=== PATIENT | male | born 1945 | race Caucasian/White ===

== ENCOUNTER → 2016-12-18 | Outpatient (CLI) | payer MEDICARE, BC | LOC: KA.OC 13:05 | PROVIDERS: ATTEND Internal Medicine | DX: R30.0 Dysuria (principal); E11.9 Type 2 diabetes mellitus without complications; N39.0 Urinary tract infection, site not specified | CPT/HCPCS: 36415; 81001; 83036; 87086; 87088; 87186 ==

== ENCOUNTER 2017-08-17 09:49 | Inpatient (IN) | payer MEDICARE, BC ==
[2017-08-17 10:45] LABS: CHLORIDE,CL 106 mmol/L (98-115); SODIUM,NA 146 mmol/L (136-145)
[2017-08-17] MEDS ORDERED: Ibuprofen 600 MG Tab PO PRN (12:05)
[2017-08-17] MEDS ORDERED: Ondansetron 4 MG Tab.DIS PO PRN (12:05)
[2017-08-17] MEDS ORDERED: cefTRIAXone 1 GM in Sodium Chloride 0.9% 50 ML IV SCH (13:00)
[2017-08-17 14:37] VITALS: BP 115/74
[2017-08-17] MEDS ORDERED: Sodium Chloride 0.9% 1,000 ML IV SCH ×2 (15:00→16:00)
[2017-08-18] MEDS ORDERED: cefTRIAXone 1 GM Vial IVPUSH SCH (13:00)
== END 2017-08-17 16:25 | DRG 690 ==
LOC: KA.MS 09:49 → KA.OC 09:49 → UNDOADMIN 11:28 → KA.MS 11:28 → UNDODISIN 16:25
PROVIDERS: ADMIT Internal Medicine; ATTEND Internal Medicine
DX: N39.0 Urinary tract infection, site not specified (principal); R50.9 Fever, unspecified; N13.2 Hydronephrosis with renal and ureteral calculous obstruction; J44.9 Chronic obstructive pulmonary disease, unspecified; Z88.0 Allergy status to penicillin; Z79.82 Long term (current) use of aspirin; Z79.4 Long term (current) use of insulin; Z79.899 Other long term (current) drug therapy
CPT/HCPCS: 36415; 71020; 74176; 80048; 81001; 85025; 87040; 87086; 87088; 87186; J0696; J7030; J7050

== ENCOUNTER 2019-11-11 08:40 | Day surgery (SDC) | payer MEDICARE, BC ==
[2019-11-11] MEDS ORDERED: Propofol 200 MG/20 ML SDV IV ONE (08:41)
[2019-11-11] MEDS ORDERED: Midazolam 1 MG/ML 2 ML SDV IV ONE (08:41)
[2019-11-11] MEDS ORDERED: Lidocaine 2% 100 MG/5 ML Syringe IVPUSH ONE (08:41)
[2019-11-11] MEDS ORDERED: Sodium Chloride 0.9% 10 ML Syringe FLUSH PRN (08:45)
[2019-11-11] MEDS ORDERED: Sodium Chloride 0.9% 1,000 ML IV SCH (08:45)
--- NOTE | 2019-11-11 10:11 | PCM.PN ---
- General Info Date of Service: 11/11/19 - Review of Systems Systems Review Comment:: 74 y/o male with history of left sided abdominal pain and heart burn symptoms referred for EGD and Colonoscopy. He is medically stable to proceed. His recent H and P is reviewed and no significant changes are noted. Patient states that he has had a previous left colectomy for diverticular disease. I have discussed the proposed EGD and Colonoscopy with the patient. He agrees to proceed accepting risks. - Patient Data Vitals - Most Recent: Last Vital Signs Temp 96.8 F 11/11/19 09:05 Pulse 82 11/11/19 09:05 Resp 18 11/11/19 09:05 BP 136/95 H 11/11/19 09:05 Pulse Ox 95 11/11/19 09:05 Weight - Most Recent: 78.925 kg Med Orders - Current: Current Medications Sodium Chloride (Normal Saline) 1,000 mls @ 50 mls/hr IV ASDIRECTED MARC Last Admin: 11/11/19 09:05 Dose: 50 mls/hr Sodium Chloride (Saline Flush) 10 ml FLUSH Q8HR PRN PRN Reason: keep vein open Sepsis Event Note - Focused Exam Vital Signs: Vital Signs Temp Pulse Resp BP Pulse Ox 11/11/19 09:05 96.8 F 82 18 136/95 H 95 Date Exam was Performed: 11/11/19 Time Exam was Performed: 10:08 - Problem List Review Problem List Initiated/Reviewed/Updated: Yes - My Orders Last 24 Hours: My Active Orders 11/10/19 15:01 Resuscitation Status Routine 11/11/19 08:45 Blood Glucose Check, Bedside [RC] UPON Peripheral IV Care [RC] . DIRECTED Sodium Chloride 0.9% [Normal Saline] 1,000 ml IV ASDIRECTED Sodium Chloride 0.9% [Saline Flush] 10 ml FLUSH Q8HR PRN Peripheral IV Insertion Adult [OM.PC] Routine 11/11/19 09:00 Patient to Empty Bladder [RC] ASDIRECTED 11/11/19 09:45 Verify Patient Consent Obtain [RC] ASDIRECTED 11/11/19 Breakfast Nothing Per Oral Diet [DIET] - Assessment Assessment:: Heart Burn Left sided abdominal pain with history of prior colon resection - Plan Plan:: EGD and Colonoscopy
[2019-11-11] MEDS ORDERED: Albuterol 0.083% 2.5 MG/3 ML Neb Soln NEB SCH (10:12)
[2019-11-11] MEDS ORDERED: Midazolam 1 MG/ML 2 ML SDV ONE (10:19)
[2019-11-11] MEDS ORDERED: Propofol 200 MG/20 ML SDV ONE (10:19)
[2019-11-11] MEDS ORDERED: Lidocaine 2% 100 MG/5 ML Syringe ONE (10:20)
--- NOTE | 2019-11-11 11:08 | PCM.OPNOTE ---
- General Post-Op/Procedure Note Date of Surgery/Procedure: 11/11/19 Operative Procedure(s): EGD with Biopsy and Colonoscopy Findings: Small hiatal hernia Prior Sigmoid Resection with residual left colon diverticulosis but without inflammation Pre Op Diagnosis: Heart Burn. Abdominal Pain Post-Op Diagnosis: Haital Hernia. Left Colon Diverticulosis Anesthesia Technique: [facility] [place] Surgeon: Jorgito Ruiz Pathology: Biopsies of Gastric Antrum and GE Jct EBL in mLs: 3 Complications: None Condition: Good
[2019-11-11 12:02] VITALS: BP 144/82; PULSE 74
--- NOTE | 2019-11-11 13:41 | OR ---
DATE OF SURGERY: 11/11/2019 SURGEON: Jorgito Ruiz MD REFERRING PROVIDER: SILVIA Gallego PREOPERATIVE DIAGNOSIS: Symptoms of heartburn and abdominal pain. POSTOPERATIVE DIAGNOSIS: Hiatal hernia, left colon diverticulosis. OPERATION PERFORMED: Esophagogastroduodenoscopy with biopsy and colonoscopy. INDICATIONS FOR SURGERY: This 74-year-old male, who has been having some symptoms of heartburn and also has noted persistent left-sided abdominal pain. He has a history of a prior left colon resection for diverticular disease and upper and lower endoscopy is planned. FINDINGS: On upper endoscopy, the patient has a small hiatal hernia. The Z- line is distinct, approximately 41 cm from the incisors. The hiatal hernia does not appear to be acutely inflamed. The gastric and duodenal mucosa otherwise appeared normal. On colonoscopy, the patient has a well-healed end-to-end colonic anastomosis. There is no sign of visible inflammation, lesion, or stenosis at this anastomosis. There are some scattered diverticula in this area of the colon, but they do not appear to be acutely inflamed or otherwise complicated. The remainder of the colon appears normal. DESCRIPTION OF PROCEDURE: The patient was taken to the operating room. He was given intravenous sedation and with him in the left lateral decubitus position, a gastroscope was advanced through the mouth guard into the oral cavity. This was then carefully advanced under direct visualization down into the esophagus and then on to the stomach and duodenum, where examination to the 3rd portion was performed. After carefully examining the duodenum, the scope was withdrawn back into the stomach where full examination including retroflexed examination of the fundus was performed. Random biopsies of the antrum were taken to rule out H pylori. The GE junction was carefully examined and biopsies were taken here as well. The esophagus was examined as the scope was withdrawn. Attention was turned to colonoscopy where digital rectal exam showed no rectal masses. The Olympus colonoscope was inserted into the rectum. Retroflexed examination of the rectal canal was performed. The scope was carefully advanced into the sigmoid region where the anastomosis was readily identified. This was easily cannulated and the scope was then carefully advanced through the length of the colon until cecum was reached. Cecal acquisition was confirmed by noting the normal internal cecal anatomy including the appendiceal orifice and ileocecal valve. The light was also noted to transilluminate the abdominal wall in the right lower quadrant. After examining the cecum, the scope was slowly withdrawn sequentially re-examining the colonic segments until the entire colon and rectum had been examined. The scope was removed and the patient was taken from the operating room in satisfactory condition. ESTIMATED BLOOD LOSS: 3 mL. COMPLICATIONS: None. PROGNOSIS: Good. /[id number]/MODL
[2019-11-11] MEDS ORDERED: Bupivacaine 0.25% 10 ML SDV ONE (14:23)
== END 2019-11-11 12:55 | disposition home or self-care (01) ==
LOC: KA.SDS 08:40
PROVIDERS: ATTEND Surgery
DX: K44.9 Diaphragmatic hernia without obstruction or gangrene (principal); K57.30 Diverticulosis of large intestine without perforation or abscess without bleeding; J30.2 Other seasonal allergic rhinitis; I10 Essential (primary) hypertension; E11.9 Type 2 diabetes mellitus without complications; F41.9 Anxiety disorder, unspecified; E03.9 Hypothyroidism, unspecified; E78.00 Pure hypercholesterolemia, unspecified; K21.9 Gastro-esophageal reflux disease without esophagitis; G47.00 Insomnia, unspecified; Z90.49 Acquired absence of other specified parts of digestive tract; Z87.19 Personal history of other diseases of the digestive system; Z88.0 Allergy status to penicillin; Z79.899 Other long term (current) drug therapy; Z79.82 Long term (current) use of aspirin; Z79.4 Long term (current) use of insulin
CPT/HCPCS: 00813; 82962; J2001; J2250; J2704; J7030; J7613-GY

== ENCOUNTER 2019-12-18 09:56 | Emergency (ER) | payer MEDICARE, BC ==
--- NOTE | 2019-12-18 10:42 | EDM.PDOC ---
ED HPI GENERAL MEDICAL PROBLEM - General Stated Complaint: WEAK, ABNORMAL EKG Time Seen by Provider: 12/18/19 10:13 Source of Information: Reports: Patient, Provider, Significant Other History Limitations: Reports: No Limitations - History of Present Illness INITIAL COMMENTS - FREE TEXT/NARRATIVE: Patient presents from [facility] clinic with report of diaphoresis, malaise and right shoulder pain. About 0330 this morning he was very diaphoretic and short of breath. He didn't sleep well. He was planning to have surgery yesterday to repair a right rotator cuff but when in [place] at the [facility] he had some pain under left anterior ribcage and they did an EKG and sent him to [facility]. In the ER, yesterday he was told an enzyme was a little elevated and they scheduled him to see a unmanned equipment operator today. Today he was having too much shoulder and back pain to ride to [place] in a car so came to see Ana in clinic. Ana saw that he was still diaphoretic, did an EKG, sent him to ER and called me. Patient denies any history of stents or other heart problems. He denies pain or heaviness in chest; denies pain in neck, jaw, or left shoulder. He says the pain he had under the ribcage yesterday only lasted 10 minutes and hasn't returned. - Related Data Allergies Allergy/AdvReac Type Severity Reaction Status Date / Time Penicillins Allergy Hives Verified 12/18/19 10:17 Home Meds: Home Meds Albuterol [Ventolin HFA] 2 puff INH Q4H PRN 08/17/17 [History] Arformoterol [Brovana] 15 mcg NEB BIDRT 08/17/17 [History] Aspirin [Adult Low Dose Aspirin EC] 81 mg PO DAILY 08/17/17 [History] Budesonide [Pulmicort] 0.5 mg NEB BIDRT 08/17/17 [History] Diazepam [Valium] 5 mg PO BID PRN 08/17/17 [History] Flaxseed Oil [Flaxseed] 1,000 mg PO BID 08/17/17 [History] Fluticasone Propionate [Flonase Allergy Relief] 1 - 2 spray NASBOTH DAILY PRN [History] Insulin Glarg,Human.Rec.Analog [LantUS Solostar] 52 unit SUBCUT DAILY 08/17/17 [ History] Insulin Lispro [Humalog Kwikpen U-100] 18 unit SQ ASDIRECTED PRN 08/17/17 [ History] Levothyroxine Sodium [Synthroid] 137 mcg PO ACBREAKFAST 08/17/17 [History] Nystatin [Nystatin Crm] 1 gm TOP BID PRN 08/17/17 [History] Papaverine/Phentolamine/Water [Papavrn 30 mg-Phento 1 mg/ml] 0.5 ml IC ASDIRECTED PRN 08/17/17 [History] Pravastatin Sodium [Pravachol] 40 mg PO DAILY 08/17/17 [History] Propranolol HCl 10 mg PO BID 08/17/17 [History] Sildenafil Citrate 100 mg PO DAILY PRN 08/17/17 [History] Tiotropium [Spiriva HandiHaler] 18 mcg INH DAILY 08/17/17 [History] amLODIPine Besylate [Norvasc] 2.5 mg PO DAILY 08/17/17 [History] traMADol HCl [Tramadol HCl ER] 300 mg PO BEDTIME 08/17/17 [History] traMADol HCl [Tramadol HCl] 50 mg PO BID PRN 08/17/17 [History] traZODone HCl [Trazodone HCl] 100 mg PO BEDTIME 08/17/17 [History] Cranberry Fruit Concentrate [Cran-Max] 500 mg PO ASDIRECTED 11/10/19 [History] L.acidoph,Paracasei, B.lactis [Probiotic] 1 tab PO ASDIRECTED 11/10/19 [History] Meloxicam 15 mg PO DAILY 11/10/19 [History] QUEtiapine [SEROquel] 50 mg PO DAILY 11/10/19 [History] Ranitidine [Zantac] 150 mg PO BID 11/10/19 [History] Sulfamethoxazole/Trimethoprim [Bactrim 400-80 MG] 1 tab PO BEDTIME 11/10/19 [ History] Ciclopirox/Ure/Camph/Menth/Euc [Ciclopirox 8% Treatment Kit] 1 applic TOP ASDIRECTED PRN 12/18/19 [History] Cranberry Fruit Extract [Cranberry] 500 mg PO BEDTIME 12/18/19 [History] Past Medical History HEENT History: Reports: Cataract, Hard of Hearing, Impaired Vision Other HEENT History: sinus infections. seasonal allergies Cardiovascular History: Reports: High Cholesterol, Hypertension, SOB on Exertion Respiratory History: Reports: Asthma, COPD, Sleep Apnea, SOB Gastrointestinal History: Reports: Chronic Constipation, Diverticulosis, GERD, Hemorrhoids Other Gastrointestinal History: stomach inflamation. IBS Genitourinary History: Reports: Neurogenic Bladder, Prostate Disorder, Retention , Urinary, UTI, Recurrent, Other (See Below) Other Genitourinary History: self caths. erectile dysfunction Musculoskeletal History: Reports: Arthritis, Back Pain, Chronic, Fracture, Neck Pain, Chronic Neurological History: Reports: Concussion, Headaches, Chronic, Head Trauma Psychiatric History: Reports: Anxiety, Depression Endocrine/Metabolic History: Reports: Diabetes, Type II Other Endocrine/Metabolic History: MULTINODULAR THYROID WITH THYROIDECTOMY Hematologic History: Reports: Blood Transfusion(s) Oncologic (Cancer) History: Reports: Bladder, Prostate, Thyroid Dermatologic History: Reports: Psoriasis - Infectious Disease History Infectious Disease History: Reports: Chicken Pox, Influenza, Measles, Mumps - Past Surgical History HEENT Surgical History: Reports: Eye Surgery Other HEENT Surgeries/Procedures: removed piece of steel Cardiovascular Surgical History: Reports: None Respiratory Surgical History: Reports: None GI Surgical History: Reports: Colonoscopy, EGD Other GI Surgeries/Procedures: 24 INCHES OF COLON REMOVED DUE TO DIVERTICULITIS Male Surgical History: Reports: Cystectomy Endocrine Surgical History: Reports: Thyroidectomy Other Neurological Surgeries/Procedures: INJECTIONS IN BACK FOR ARTHRITIS AND IN SHOULDERS Musculoskeletal Surgical History: Reports: Shoulder Surgery Other Musculoskeletal Surgeries/Procedures:: LEFT ROTATER CUFF REPAIR. RIGHT ROTATER CUFF REPAIR NEEDED AND NOW REINJURED RIGHT SHOULDER Dermatological Surgical History: Reports: None Social & Family History - Tobacco Use Smoking Status *Q: Former Smoker Used Tobacco, but Quit: Yes Month/Year Tobacco Last Used: 1996 - Caffeine Use Caffeine Use: Reports: Coffee, Soda - Recreational Drug Use Recreational Drug Use: No ED ROS GENERAL - Review of Systems Review Of Systems: See Below Constitutional: Denies: Fever, Decreased Appetite HEENT: Denies: Ear Pain, Throat Pain, Vision Change Respiratory: Reports: Shortness of Breath. Denies: Wheezing, Cough Cardiovascular: Denies: Chest Pain, Lightheadedness, Syncope GI/Abdominal: Reports: Abdominal Pain (had some vague abdominal discomfort). Denies: Diarrhea, Vomiting Musculoskeletal: Reports: Shoulder Pain (right, due to current injury), Back Pain (chronic). Denies: Neck Pain, Arm Pain Skin: Reports: Diaphoresis. Denies: Cyanosis, Jaundice, Mottled, Pallor Neurological: Reports: Headache. Denies: Confusion, Dizziness, Seizure, Syncope , Trouble Speaking, Difficulty Walking Psychiatric: Denies: Agitation, Anxiety, Confusion ED EXAM, GENERAL - Physical Exam Exam: See Below Exam Limited By: No Limitations General Appearance: Alert, WD/WN, No Apparent Distress Eye Exam: Bilateral Eye: EOMI, Normal Inspection, PERRL Ears: Normal External Exam, Hearing Grossly Normal Nose: Normal Inspection, No Blood Throat/Mouth: Normal Inspection, Normal Lips, Normal Voice, No Airway Compromise Head: Atraumatic, Normocephalic Neck: Normal Inspection, Supple, Non-Tender, Full Range of Motion. No: Carotid Bruit Respiratory/Chest: No Respiratory Distress, Lungs Clear, Normal Breath Sounds, No Accessory Muscle Use Cardiovascular: Regular Rate, Rhythm, No Edema, No Murmur Peripheral Pulses: 2+: Carotid (L), Carotid (R), Radial (L), Radial (R) GI/Abdominal: Normal Bowel Sounds, Soft, Non-Tender, No Organomegaly, No Distention Back Exam: Normal Inspection, Full Range of Motion. No: CVA Tenderness (L), CVA Tenderness (R) Extremities: Normal Inspection, Normal Range of Motion, Non-Tender. No: Izabel' s Sign Neurological: Alert, Oriented, Normal Cognition, No Motor/Sensory Deficits Psychiatric: Normal Affect, Normal Mood Skin Exam: Warm, Dry, Intact, Normal Color, No Rash Course - Vital Signs Last Recorded V/S: Last Vital Signs Temp 97.9 F 12/18/19 10:15 Pulse 92 12/18/19 13:21 Resp 18 12/18/19 13:21 BP 116/68 12/18/19 13:21 Pulse Ox 95 12/18/19 13:21 - Orders/Labs/Meds Orders: Active Orders 24 hr Category Date Time Status EKG Documentation Completion [RC] ASDIRECTED Care 12/18/19 10:14 Ordered CULTURE URINE [RM] Stat Lab 12/18/19 11:47 Ordered Labs: Laboratory Tests 12/18/19 12/18/19 12/18/19 Range/Units 10:05 10:05 10:05 WBC 12.72 H (5.00-10.00) 10^3/uL RBC 4.87 (4.50-6.00) 10^6/uL Hgb 14.9 (13.0-17.0) g/dL Hct 44.8 (40.0-52.0) % MCV 92.0 (82.0-92.0) fL MCH 30.6 (27.0-31.0) pg MCHC 33.3 (32.0-36.0) g/dL RDW 13.4 (11.5-14.5) % Plt Count 278 (150-400) 10^3/uL MPV 8.9 (7.4-10.4) fL Immature Gran % (Auto) 0.2 (0.0-5.0) % Neut % (Auto) 85.7 H (50.0-70.0) % Lymph % (Auto) 6.8 L (20.0-40.0) % Banks % (Auto) 6.9 (2.0-8.0) % Eos % (Auto) 0.2 L (1.0-3.0) % Baso % (Auto) 0.2 (0.0-1.0) % Immature Gran # (Auto) 0.03 (0.00-0.50) 10^3/uL Neut # (Auto) 10.91 H (2.50-7.00) 10^3/uL Lymph # (Auto) 0.86 L (1.00-4.00) 10^3/uL Banks # (Auto) 0.88 H (0.10-0.80) 10^3/uL Eos # (Auto) 0.02 L (0.10-0.30) 10^3/uL Baso # (Auto) 0.02 (0.00-0.10) 10^3/uL D-Dimer, Quantitative 1450 H (<400) ng/mL Sodium 140 (136-145) mmol/L Potassium 4.4 (3.3-5.3) mmol/L Chloride 97 L (98-115) mmol/L Carbon Dioxide 24.9 (21.0-32.0) mmol/L Anion Gap 22.5 H (5-15) mmol/L BUN 24 (6-25) mg/dL Creatinine 1.06 (0.51-1.17) mg/dL Est Cr Clr Drug Dosing 62.17 mL/min Estimated GFR (MDRD) > 60 mL/min Glucose 132 H (75 - 99) mg/dL Calcium 9.0 (8.7-10.3) mg/dL Total Bilirubin 0.6 (0.2-1.0) mg/dL AST 36 (15-37) U/L ALT 30 (12-78) U/L Alkaline Phosphatase 40 L (46-116) IU/L Troponin I 0.06 (0.00-0.070) ng/mL Total Protein 7.4 (6.4-8.2) g/dL Albumin 3.66 (3.00-4.80) g/dL Specimen Type Urine Color (YELLOW) Urine Appearance (CLEAR) Urine pH (5.0-9.0) Ur Specific [place] (1.005-1.030) Urine Protein (NEGATIVE) mg/dL Urine Glucose (UA) (NEGATIVE) mg/dL Urine Ketones (NEGATIVE) mg/dL Urine Occult Blood (NEGATIVE) Urine Nitrite (NEGATIVE) Urine Bilirubin (NEGATIVE) Urine Urobilinogen (0.2-1.0) E.U./dL Ur Leukocyte Esterase (NEGATIVE) Urine RBC (0-5) /HPF Urine WBC (0-5) /HPF Ur Epithelial Cells /LPF Urine Bacteria (NONE TO FEW) /HPF 12/18/19 Range/Units 11:20 WBC (5.00-10.00) 10^3/uL RBC (4.50-6.00) 10^6/uL Hgb (13.0-17.0) g/dL Hct (40.0-52.0) % MCV (82.0-92.0) fL MCH (27.0-31.0) pg MCHC (32.0-36.0) g/dL RDW (11.5-14.5) % Plt Count (150-400) 10^3/uL MPV (7.4-10.4) fL Immature Gran % (Auto) (0.0-5.0) % Neut % (Auto) (50.0-70.0) % Lymph % (Auto) (20.0-40.0) % Banks % (Auto) (2.0-8.0) % Eos % (Auto) (1.0-3.0) % Baso % (Auto) (0.0-1.0) % Immature Gran # (Auto) (0.00-0.50) 10^3/uL Neut # (Auto) (2.50-7.00) 10^3/uL Lymph # (Auto) (1.00-4.00) 10^3/uL Banks # (Auto) (0.10-0.80) 10^3/uL Eos # (Auto) (0.10-0.30) 10^3/uL Baso # (Auto) (0.00-0.10) 10^3/uL D-Dimer, Quantitative (<400) ng/mL Sodium (136-145) mmol/L Potassium (3.3-5.3) mmol/L Chloride (98-115) mmol/L Carbon Dioxide (21.0-32.0) mmol/L Anion Gap (5-15) mmol/L BUN (6-25) mg/dL Creatinine (0.51-1.17) mg/dL Est Cr Clr Drug Dosing mL/min Estimated GFR (MDRD) mL/min Glucose (75 - 99) mg/dL Calcium (8.7-10.3) mg/dL Total Bilirubin (0.2-1.0) mg/dL AST (15-37) U/L ALT (12-78) U/L Alkaline Phosphatase (46-116) IU/L Troponin I (0.00-0.070) ng/mL Total Protein (6.4-8.2) g/dL Albumin (3.00-4.80) g/dL Specimen Type Urinqcath Urine Color Dark yellow H (YELLOW) Urine Appearance Turbid H (CLEAR) Urine pH 5.5 (5.0-9.0) Ur Specific [place] >= 1.030 (1.005-1.030) Urine Protein Trace H (NEGATIVE) mg/dL Urine Glucose (UA) Negative (NEGATIVE) mg/dL Urine Ketones 15 H (NEGATIVE) mg/dL Urine Occult Blood Negative (NEGATIVE) Urine Nitrite Negative (NEGATIVE) Urine Bilirubin Negative (NEGATIVE) Urine Urobilinogen 0.2 (0.2-1.0) E.U./dL Ur Leukocyte Esterase Negative (NEGATIVE) Urine RBC 0-5 (0-5) /HPF Urine WBC 0-5 (0-5) /HPF Ur Epithelial Cells Few /LPF Urine Bacteria Moderate H (NONE TO FEW) /HPF Meds: Medications Discontinued Medications Generic Name Dose Route Start Last Admin Trade Name [place] PRN Reason Stop Dose Admin Ceftriaxone Sodium 1 gm 12/18/19 13:10 12/18/19 13:13 Rocephin IVPUSH 12/18/19 13:11 1 gm ONETIME ONE Administration Sodium Chloride 100 mls @ 200 mls/min 12/18/19 13:22 12/18/19 13:25 Normal Saline IV 12/18/19 13:23 200 mls/min ONETIME ONE Administration Iopamidol 100 ml 12/18/19 13:22 12/18/19 13:25 Isovue-370 (76%) IV 12/18/19 13:23 100 ml ONETIME ONE Administration - Re-Assessments/Exams Free Text/Narrative Re-Assessment/Exam: 12/18/19 10:50 We called [facility] to get there record from yesterday and they are sending it. 12/18/19 11:02 Yesterday's ER report found no heart problems and felt GERD was the problem. They scheduled him for cardiology consult today. Trop was <0.03 yesterday. 12/18/19 11:13 Patient does self-cath multiple times a day for urination. He was on Bactrim qhs prophylaxis until he developed a UTI a few weeks ago. Then he took Keflex and finished that 3 days ago. He denies any dysuria or problems now. With the WBC a little elevated today and chest clear, we will check urine. Trop is 0.06, WBC 12.72, ANC 10.91. Yesterday WBC was 10.8 in [place]. 12/18/19 11:51 D-dimer is 1450 now (normal less than 400). I noticed that [place] had checked it yesterday at 1.44 with normal range <0.[address] so we will do CT now. Patient is still short of breath but has no pain or swelling in legs. Calves are soft, symmetric and no swelling to exam. Homans negative. He is comfortable and his shoulder isn't hurting much at all now. 12/18/19 12:18 UA shows moderate bacteria but leukocyte esterase and nitrite are negative. With the recent antibiotic, his frequent catheter use and lack of current symptoms will wait on culture. 12/18/19 13:[address] results showing some left lingular and basilar infiltrate consolidation. He also saw age indeterminate evidence of small emboli in right lung that he thought appears chronic but wasn't there on a comparison CT from 2014 so isn't sure what to think of it. 12/18/19 13:34 Gave Rocephin IVP. Discussed case with PCP Ana Hernandez and will treat with Eliquis for the lung emboli and she will repeat CT after pneumonia clears. Discussed findings and treatment plan with patient and his . Departure - Departure Time of Disposition: 13:37 Disposition: Home, Self-Care 01 Clinical Impression: Bacteriuria, asymptomatic, Chronic right shoulder pain, Pulmonary embolus, right CAP (community acquired pneumonia) Qualifiers: Laterality: left Lung location: unspecified part of lung Qualified Code(s): J18.9 - Pneumonia, unspecified organism Rotator cuff tear, right Qualifiers: Rotator cuff tear extent: unspecified tear extent Encounter type: subsequent encounter Referrals: Ana Hernandez PA-C [Primary Care Provider] - Additional Instructions: 1. Take the Omnicef and Zithromax antibiotics as directed. You can start the Zithromax right away but wait to start the Omnicef tomorrow morning. 2. Take the Eliquis as directed. 3. Follow up with Ana Hernandez in clinic early to middle next week. 4. Recheck sooner if any worsening. Sepsis Event Note - Evaluation Sepsis Screening Result: No Definite Risk - Focused Exam Vital Signs: Vital Signs Temp Pulse Resp BP Pulse Ox 12/18/19 13:21 92 18 116/68 95 12/18/19 11:01 99 18 121/62 95 12/18/19 10:15 97.9 F 109 H 20 133/79 93 L Date Exam was Performed: 12/18/19 Time Exam was Performed: 13:41 - My Orders Last 24 Hours: My Active Orders 12/18/19 10:14 EKG Documentation Completion [RC] ASDIRECTED 12/18/19 11:47 CULTURE URINE [RM] Stat - Assessment/Plan Last 24 Hours: My Active Orders 12/18/19 10:14 EKG Documentation Completion [RC] ASDIRECTED 12/18/19 11:47 CULTURE URINE [RM] Stat
[2019-12-18 10:55] LABS: ANION GAP 22.5 mmol/L (5-15); CHLORIDE,CL 97 mmol/L (98-115); SODIUM,NA 140 mmol/L (136-145)
--- NOTE | 2019-12-18 11:12 | CR ---
[id number] RAD/RAD Chest PA or AP 1V EXAM: FRONTAL CHEST INDICATION: DYSPNEA. COMPARISON: December 17, 2019. DISCUSSION: Chronic left base scarring. No acute infiltrates. Underlying chronic obstructive pulmonary disease. Chronic right rib and clavicle fractures. Normal heart size. IMPRESSION: 1. Chronic obstructive pulmonary disease. No acute findings. Zac Fried MD 12/18/19 1111 Thank you for allowing us to participate in the care of your patient.
[2019-12-18] MEDS: cefTRIAXone 1 GM Vial IVPUSH ONE (13:13)
--- NOTE | 2019-12-18 13:13 | CT ---
[id number] CT/CTA Chest EXAM: CT ANGIOGRAM CHEST INDICATION: Dyspnea with elevated d-dimer. COMPARISON: May 28, 2014. DISCUSSION: Beginning just after the right main pulmonary artery branch and extending into the right middle and lower lobes there is a small volume of peripheral partially occlusive thrombus extending into segmental branches in the right middle and lower lobes. These areas of thrombus are of uncertain age, but the appearance would be more typical of chronic emboli. Correlate with the clinical history of previous pulmonary emboli would be useful. No clot is seen in this area scanned on May 28, 2014. No emboli are seen in the left lung. There is mild to moderate apical predominant emphysema and there is bronchitis with mild diffuse bronchial wall thickening. Mild tubular bronchiectasis in the lung bases. Mild scarring in both lung bases is unchanged. Interval development of patchy groundglass opacities and mild consolidation in the left upper and lower lobes most consistent with infection. No right-sided infiltrates. No adenopathy. No pleural or pericardial effusion. Normal heart size. Coronary calcifications. Small sliding type hiatus hernia. The imaged upper abdomen is otherwise unremarkable. Chronic healed right rib and clavicle fractures. IMPRESSION: 1. Mild infiltrates in the left upper and lower lobes consistent with pneumonia. 2. Small volume age indeterminate peripheral partially occlusive pulmonary emboli in the right middle and lower lobes. Zac Fried MD 12/18/19 0637 Thank you for allowing us to participate in the care of your patient.
[2019-12-18 13:23] VITALS: BP 116/68; PULSE 92
[2019-12-18] MEDS: Iopamidol 755 Mg/ML 100 ML Bottle IV ONE (13:25)
[2019-12-18] MEDS: Sodium Chloride 0.9% 100 ML IV ONE (13:25)
== END 2019-12-18 14:00 | disposition home or self-care (01) ==
LOC: KA.ED 09:56
DX: I26.99 Other pulmonary embolism without acute cor pulmonale (principal); J18.9 Pneumonia, unspecified organism; M75.101 Unspecified rotator cuff tear or rupture of right shoulder, not specified as traumatic; R82.71 Bacteriuria; Z88.0 Allergy status to penicillin; Z79.82 Long term (current) use of aspirin; Z79.899 Other long term (current) drug therapy; I10 Essential (primary) hypertension; E78.00 Pure hypercholesterolemia, unspecified; J44.9 Chronic obstructive pulmonary disease, unspecified; F41.9 Anxiety disorder, unspecified; F32.9 Major depressive disorder, single episode, unspecified; E11.9 Type 2 diabetes mellitus without complications; Z87.891 Personal history of nicotine dependence
CPT/HCPCS: 36415; 71045; 71260; 80053; 81001; 84484; 85025; 85379; 87086; 93005; 96374; 99284; 99285-25; J0696; J7050; Q9967

== ENCOUNTER 2020-03-23 14:25 | Emergency (ER) | payer MEDICARE, BC ==
[2020-03-23] MEDS ORDERED: Sodium Chloride 0.9% 10 ML Syringe FLUSH PRN (14:43)
[2020-03-23] MEDS: Aspirin 81 MG Tab.Chew PO ONE (14:46)
--- NOTE | 2020-03-23 15:13 | EDM.PDOC ---
ED HPI GENERAL MEDICAL PROBLEM - General Stated Complaint: NOT FEELING WELL-"LUNGS BURNING" Time Seen by Provider: 03/23/20 14:54 Source of Information: Reports: Patient History Limitations: Reports: No Limitations - History of Present Illness INITIAL COMMENTS - FREE TEXT/NARRATIVE: Patient presents with cough, "burning" in his lungs, and dyspnea. This started 3 days ago and involved a lot of coughing. All of the symptoms improved over the past 24-48 hours. The worst was Sunday and Sunday, especially the tightness in his chest and burning in his lungs that accompanied coughing on Sunday. Today he feels much better; the only thing new today is that at 0700 ( 10 hrs ago) he felt like he had a "melissa horse" in his left anterior neck. That lasted awhile but has mostly resolved and now just feels like a sore muscle. The reason he came to ER today is that his home health nurse told him to he says. He had CABGx4 three weeks ago. He is on Eliquis. - Related Data Allergies Allergy/AdvReac Type Severity Reaction Status Date / Time Penicillins Allergy Hives Verified 03/23/20 15:02 Home Meds: Home Meds Arformoterol [Brovana] 15 mcg NEB BIDRT 08/17/17 [History] Budesonide [Pulmicort] 0.5 mg NEB BIDRT 08/17/17 [History] Diazepam [Valium] 5 mg PO BID PRN 08/17/17 [History] Flaxseed Oil [Flaxseed] 1,000 mg PO BID 08/17/17 [History] Insulin Glarg,Human.Rec.Analog [LantUS Solostar] 60 unit SUBCUT DAILY 08/17/17 [ History] Insulin Lispro [Humalog Kwikpen U-100] 18 unit SQ ASDIRECTED PRN 08/17/17 [ History] Levothyroxine Sodium [Synthroid] 137 mcg PO ACBREAKFAST 08/17/17 [History] Nystatin [Nystatin Crm] 1 gm TOP BID PRN 08/17/17 [History] Papaverine/Phentolamine/Water [Papavrn 30 mg-Phento 1 mg/ml] 0.5 ml IC ASDIRECTED PRN 08/17/17 [History] Pravastatin Sodium [Pravachol] 40 mg PO BEDTIME 10/27/17 [History] Tiotropium [Spiriva HandiHaler] 18 mcg INH DAILY 08/17/17 [History] traMADol HCl [Tramadol HCl ER] 300 mg PO BEDTIME 08/17/17 [History] traZODone HCl [Trazodone HCl] 100 mg PO BEDTIME 08/17/17 [History] Cranberry Fruit Concentrate [Cran-Max] 1,000 mg PO DAILY 11/10/19 [History] L.acidoph,Paracasei, B.lactis [Probiotic] 1 tab PO ASDIRECTED 11/10/19 [History] QUEtiapine [SEROquel] 50 mg PO DAILY 11/10/19 [History] Cranberry Fruit Extract [Cranberry] 500 mg PO BEDTIME 12/18/19 [History] Acetaminophen [Pain Reliever] 500 mg PO Q4H PRN 03/23/20 [History] Apixaban [Eliquis] 5 mg PO BID 03/23/20 [History] Cholecalciferol (Vitamin D3) [Vitamin D3] 2,000 unit PO DAILY 03/23/20 [History] Docusate Sodium 250 mg PO DAILY 03/23/20 [History] Hydrocodone/Acetaminophen [Hydrocodone-Acetamin 10-325 mg] 1 each PO Q4H PRN 12/11 [History] Magnesium Oxide 500 mg PO BID 03/23/20 [History] Metoprolol Tartrate 25 mg PO BID 03/23/20 [History] Oxymetazoline [Nasal Decongestant] 15 ml CARITO BEDTIME 03/23/20 [History] Sennosides/Docusate Sodium [Senna Plus 8.6-50 mg Softgel] 3 tab PO DAILY PRN 12/11 [History] Sildenafil [Viagra] 100 mg PO BEDTIME PRN 03/23/20 [History] Sulfamethoxazole/Trimethoprim [Bactrim Ds Tablet] 1 each PO BID 03/23/20 [ History] Triamcinolone Acetonide [Triamcinolone Acetonide 0.1% Crm] 1 applic TOP BID 12/11 [History] Past Medical History HEENT History: Reports: Cataract, Hard of Hearing, Impaired Vision Other HEENT History: sinus infections. seasonal allergies Cardiovascular History: Reports: High Cholesterol, Hypertension, SOB on Exertion Respiratory History: Reports: Asthma, COPD, Sleep Apnea, SOB Gastrointestinal History: Reports: Chronic Constipation, Diverticulosis, GERD, Hemorrhoids Other Gastrointestinal History: stomach inflamation. IBS Genitourinary History: Reports: Neurogenic Bladder, Prostate Disorder, Retention , Urinary, UTI, Recurrent, Other (See Below) Other Genitourinary History: self caths. erectile dysfunction Musculoskeletal History: Reports: Arthritis, Back Pain, Chronic, Fracture, Neck Pain, Chronic Neurological History: Reports: Concussion, Headaches, Chronic, Head Trauma Psychiatric History: Reports: Anxiety, Depression Endocrine/Metabolic History: Reports: Diabetes, Type II Other Endocrine/Metabolic History: MULTINODULAR THYROID WITH THYROIDECTOMY Hematologic History: Reports: Blood Transfusion(s) Oncologic (Cancer) History: Reports: Bladder, Prostate, Thyroid Dermatologic History: Reports: Psoriasis - Infectious Disease History Infectious Disease History: Reports: Chicken Pox, Influenza, Measles, Mumps - Past Surgical History HEENT Surgical History: Reports: Eye Surgery Other HEENT Surgeries/Procedures: removed piece of steel Cardiovascular Surgical History: Reports: None Respiratory Surgical History: Reports: None GI Surgical History: Reports: Colonoscopy, EGD Other GI Surgeries/Procedures: 24 INCHES OF COLON REMOVED DUE TO DIVERTICULITIS Male Surgical History: Reports: Cystectomy Endocrine Surgical History: Reports: Thyroidectomy Other Neurological Surgeries/Procedures: INJECTIONS IN BACK FOR ARTHRITIS AND IN SHOULDERS Musculoskeletal Surgical History: Reports: Shoulder Surgery Other Musculoskeletal Surgeries/Procedures:: LEFT ROTATER CUFF REPAIR. RIGHT ROTATER CUFF REPAIR NEEDED AND NOW REINJURED RIGHT SHOULDER Dermatological Surgical History: Reports: None Social & Family History - Caffeine Use Caffeine Use: Reports: Coffee, Soda ED ROS GENERAL - Review of Systems Review Of Systems: See Below Constitutional: Denies: Fever, Chills, Malaise, Weakness HEENT: Denies: Ear Pain, Throat Pain, Vision Change Respiratory: Reports: Shortness of Breath, Cough Cardiovascular: Reports: Chest Pain (only with coughing as in HPI). Denies: Lightheadedness, Syncope GI/Abdominal: Denies: Abdominal Pain, Vomiting : Denies: Dysuria, Flank Pain Musculoskeletal: Reports: Neck Pain (see HPI). Denies: Shoulder Pain, Arm Pain , Back Pain, Hand Pain, Leg Pain Skin: Denies: Cyanosis, Jaundice, Mottled, Pallor, Diaphoresis Neurological: Denies: Confusion, Dizziness, Headache, Seizure, Syncope, Trouble Speaking Psychiatric: Denies: Agitation, Anxiety, Confusion ED EXAM, GENERAL - Physical Exam Exam: See Below Exam Limited By: No Limitations General Appearance: Alert, WD/WN, No Apparent Distress Eye Exam: Bilateral Eye: EOMI, Normal Inspection, PERRL Ears: Normal External Exam, Hearing Grossly Normal Nose: Normal Inspection, No Blood Throat/Mouth: Normal Inspection, Normal Lips, Normal Voice, No Airway Compromise Head: Atraumatic, Normocephalic Neck: Normal Inspection, Supple, Non-Tender, Full Range of Motion. No: Carotid Bruit, Limited Range of Motion Respiratory/Chest: No Respiratory Distress, Lungs Clear, Normal Breath Sounds, No Accessory Muscle Use, Chest Non-Tender Cardiovascular: Regular Rate, Rhythm, No Murmur Peripheral Pulses: 2+: Carotid (L), Carotid (R), Radial (L), Radial (R) GI/Abdominal: Normal Bowel Sounds, Soft, Non-Tender, No Organomegaly, No Distention, No Abnormal Bruit Back Exam: Normal Inspection, Full Range of Motion. No: CVA Tenderness (L), CVA Tenderness (R) Extremities: Normal Inspection, Non-Tender Neurological: Alert, Oriented, Normal Cognition, No Motor/Sensory Deficits Psychiatric: Normal Affect, Normal Mood Skin Exam: Warm, Dry, Intact, Normal Color, No Rash Course - Vital Signs Last Recorded V/S: Last Vital Signs Temp 96.7 F L 03/23/20 14:57 Pulse 69 03/23/20 15:41 Resp 13 03/23/20 15:41 BP 118/76 03/23/20 15:41 Pulse Ox 93 L 03/23/20 15:41 - Orders/Labs/Meds Orders: Active Orders 24 hr Category Date Time Status EKG Documentation Completion [RC] ASDIRECTED Care 03/23/20 14:43 Active Peripheral IV Care [RC] . DIRECTED Care 03/23/20 14:43 Active Sodium Chloride 0.9% [Saline Flush] Med 03/23/20 14:43 Active 10 ml FLUSH Q8HR PRN Peripheral IV Insertion Adult [OM.PC] Routine Oth 03/23/20 14:43 Ordered EKG 12 Lead [EK] Stat Ther 03/23/20 14:42 Ordered Medication Orders Sodium Chloride (Saline Flush) 10 ml FLUSH Q8HR PRN PRN Reason: keep vein open Labs: Laboratory Tests 03/23/20 03/23/20 Range/Units 14:42 14:42 WBC 7.19 (5.00-10.00) 10^3/uL RBC 4.23 L (4.50-6.00) 10^6/uL Hgb 12.3 L (13.0-17.0) g/dL Hct 38.9 L (40.0-52.0) % MCV 92.0 (82.0-92.0) fL MCH 29.1 (27.0-31.0) pg MCHC 31.6 L (32.0-36.0) g/dL RDW 13.9 (11.5-14.5) % Plt Count 543 H D (150-400) 10^3/uL MPV 7.9 (7.4-10.4) fL Add Manual Diff Yes Neutrophils % (Manual) 61 (50-70) % Band Neutrophils % 4 (4-12) % Lymphocytes % (Manual) 24 (20-40) % Monocytes % (Manual) 4 (2-8) % Eosinophils % (Manual) 7 H (1-3) % Absolute Neutrophils 4.39 Band Neutrophils # 0.29 Lymphocytes # (Manual) 1.73 Monocytes # (Manual) 0.29 Eosinophils # (Manual) 0.50 Sodium 139 (136-145) mmol/L Potassium 4.1 (3.3-5.3) mmol/L Chloride 100 (98-115) mmol/L Carbon Dioxide 27.4 (21.0-32.0) mmol/L Anion Gap 15.7 H (5-15) mmol/L BUN 13 (6-25) mg/dL Creatinine 1.32 H (0.51-1.17) mg/dL Est Cr Clr Drug Dosing 49.93 mL/min Estimated GFR (MDRD) 53 mL/min Glucose 78 (75 - 99) mg/dL Calcium 9.3 (8.7-10.3) mg/dL Troponin I 0.10 H* (0.00-0.070) ng/mL Meds: Medications Generic Name Dose Route Start Last Admin Trade Name Freq PRN Reason Stop Dose Admin Sodium Chloride 10 ml 03/23/20 14:43 Saline Flush FLUSH Q8HR PRN keep vein open Discontinued Medications Generic Name Dose Route Start Last Admin Trade Name [place] PRN Reason Stop Dose Admin Aspirin 324 mg 03/23/20 14:42 03/23/20 14:46 Aspirin PO 03/23/20 14:43 324 mg ONETIME ONE Administration - Re-Assessments/Exams Free Text/Narrative Re-Assessment/Exam: 03/23/20 16:03 CXR shows small effusions and possible infiltrate. EKG shows Q-waves in anterior leads but no ST changes. Troponin is 0.10 and we don't have recent previous to compare with except from November at 0.06. I discussed case with Dr. Go, [facility] physician underwriter, who checked records and doesn't have any troponins from his time in [place] either. Dr. Go doesn't know that pt absolutely needs to transfer there but mentioned some possible etiologies they would explore there in addition to trending troponins. We decided that, based primarily on the elevated troponin, we would transfer patient there. I discussed details with the patient and at first he was refusing to go to [place]. He talked with his and SILVIA Alejo (his PCP) came and talked with him too and he decided to go. I discussed case with Dr. Godoy, hospitalist, who accepted for transfer. They will call with room and details. 03/23/20 16:16 Patient stable at discharge. Departure - Departure Time of Disposition: 16:14 Disposition: DC/Tfer to Acute Hospital 02 Condition: Good Clinical Impression: Elevated troponin, Chest tightness - Discharge Information Referrals: Ana Hernandez PA-C [Primary Care Provider] - Forms: ED Department Discharge, Interfacility Transfer EMTALA Sepsis Event Note - Focused Exam Vital Signs: Vital Signs Temp Pulse Resp BP Pulse Ox 03/23/20 15:41 69 13 118/76 93 L 03/23/20 14:57 96.7 F L 65 15 143/79 H 95 Date Exam was Performed: 03/23/20 Time Exam was Performed: 16:18 - My Orders Last 24 Hours: My Active Orders 03/23/20 14:42 EKG 12 Lead [EK] Stat 03/23/20 14:43 EKG Documentation Completion [RC] ASDIRECTED Peripheral IV Care [RC] . DIRECTED Sodium Chloride 0.9% [Saline Flush] 10 ml FLUSH Q8HR PRN Peripheral IV Insertion Adult [OM.PC] Routine - Assessment/Plan Last 24 Hours: My Active Orders 03/23/20 14:42 EKG 12 Lead [EK] Stat 03/23/20 14:43 EKG Documentation Completion [RC] ASDIRECTED Peripheral IV Care [RC] . DIRECTED Sodium Chloride 0.9% [Saline Flush] 10 ml FLUSH Q8HR PRN Peripheral IV Insertion Adult [OM.PC] Routine
--- NOTE | 2020-03-23 15:14 | CR ---
[id number] RAD/RAD Chest PA And Lateral EXAM: FRONTAL AND LATERAL CHEST INDICATION: DIFFICULTY BREATHING. COMPARISON: December 18, 2019. DISCUSSION: Left base opacities likely combination of atelectasis and chronic scarring. CT may be useful to further evaluate for infiltrates or other pathology. Interval development of a small left effusion. Hyperinflation compatible with chronic obstructive pulmonary disease. Sternotomy. Chronic unchanged right rib fractures. IMPRESSION: 1. Development of a small left pleural effusion. 2. Mild left base atelectasis and scarring with no definite infiltrates. Zac Fried MD 03/23/20 [id number] Thank you for allowing us to participate in the care of your patient.
[2020-03-23 15:20] LABS: ANION GAP 15.7 mmol/L (5-15)
[2020-03-23 15:44] VITALS: BP 118/76; PULSE 69
== END 2020-03-23 16:35 ==
LOC: KA.ED 14:25
DX: R07.89 Other chest pain (principal); R79.89 Other specified abnormal findings of blood chemistry; I10 Essential (primary) hypertension; E78.00 Pure hypercholesterolemia, unspecified; J44.9 Chronic obstructive pulmonary disease, unspecified; M19.90 Unspecified osteoarthritis, unspecified site; F41.9 Anxiety disorder, unspecified; F32.9 Major depressive disorder, single episode, unspecified; E11.9 Type 2 diabetes mellitus without complications; Z88.0 Allergy status to penicillin; Z79.4 Long term (current) use of insulin; Z79.01 Long term (current) use of anticoagulants; Z79.899 Other long term (current) drug therapy
CPT/HCPCS: 36415; 71046; 80048; 84484; 85025; 93005; 99284; 99285-25; A9270-GY

== ENCOUNTER 2020-03-25 06:30 | Inpatient (IN) | payer MEDICARE, BC ==
[2020-03-25] MEDS ORDERED: Sodium Chloride 0.9% 1,000 ML IV ONE ×2 (06:43→08:39)
[2020-03-25] MEDS ORDERED: Ondansetron 4 MG/2 ML SDV IVPUSH ONE ×2 (06:43→09:09)
[2020-03-25] MEDS: Sodium Chloride 0.9% 10 ML Syringe FLUSH PRN ×2 (07:01→09:16)
--- NOTE | 2020-03-25 07:26 | EDM.PDOC ---
ED HPI GENERAL MEDICAL PROBLEM - General Chief Complaint: General Stated Complaint: Nausea, weakness Time Seen by Provider: 03/25/20 07:12 Source of Information: Reports: Patient History Limitations: Reports: No Limitations - History of Present Illness INITIAL COMMENTS - FREE TEXT/NARRATIVE: Patient presents this morning with nausea and "dry heaves" that lasted all night. No vomiting. Patient had told me he didn't pass any stool yesterday and hasn't passed any gas today. His tells me he definitely had 3 episodes of diarrhea yesterday and had soft stools each night for the previous three nights. He returned from [facility] yesterday after a workup for elevated troponin following recent CABG. He has been taking Tylenol for fever control however he hasn't checked his temp. He uses oxygen during the night at home routinely. Treatments UNIT LEADER: Reports: Acetaminophen Middle Abdomen Pain Score (Numeric/FACES): 5 - Related Data Allergies Allergy/AdvReac Type Severity Reaction Status Date / Time Penicillins Allergy Hives Verified 03/25/20 07:16 Home Meds: Home Meds Arformoterol [Brovana] 15 mcg NEB BIDRT 08/17/17 [History] Budesonide [Pulmicort] 0.5 mg NEB BIDRT 08/17/17 [History] Diazepam [Valium] 5 mg PO BID PRN 08/17/17 [History] Flaxseed Oil [Flaxseed] 2,000 mg PO BID 08/17/17 [History] Insulin Glarg,Human.Rec.Analog [LantUS Solostar] 60 unit SUBCUT DAILY 08/17/17 [ History] Insulin Lispro [Humalog Kwikpen U-100] 18 unit SQ BID 08/17/17 [History] Levothyroxine Sodium [Synthroid] 137 mcg PO ACBREAKFAST 08/17/17 [History] Pravastatin Sodium [Pravachol] 40 mg PO BEDTIME 08/17/17 [History] Tiotropium [Spiriva HandiHaler] 18 mcg INH DAILY 08/17/17 [History] traMADol HCl [Tramadol HCl ER] 300 mg PO BEDTIME 08/17/17 [History] traZODone HCl [Trazodone HCl] 100 mg PO BEDTIME 08/17/17 [History] L.acidoph,Paracasei, B.lactis [Probiotic] 100 mg PO BID 11/10/19 [History] QUEtiapine [SEROquel] 50 mg PO DAILY 11/10/19 [History] Cranberry Fruit Extract [Cranberry] 500 mg PO BID 12/18/19 [History] Acetaminophen [Pain Reliever] 500 mg PO Q4H PRN 03/23/20 [History] Apixaban [Eliquis] 5 mg PO BID 03/23/20 [History] Cholecalciferol (Vitamin D3) [Vitamin D3] 2,000 unit PO DAILY 03/23/20 [History] Docusate Sodium 250 mg PO DAILY 03/23/20 [History] Magnesium Oxide 500 mg PO DAILY 03/23/20 [History] Metoprolol Tartrate 12.5 mg PO BID 03/23/20 [History] Oxymetazoline [Nasal Decongestant] 15 spray CARITO BEDTIME 03/23/20 [History] Sennosides/Docusate Sodium [Senna Plus 8.6-50 mg Softgel] 2 tab PO DAILY PRN 12/11 [History] Sulfamethoxazole/Trimethoprim [Bactrim Ds Tablet] 1 each PO BID 03/23/20 [ History] Albuterol [Ventolin HFA] 2 puff INH Q4H PRN 03/25/20 [History] Cranberry Fruit Extract [Cranberry] 500 mg PO BEDTIME 03/25/20 [History] Hydrocodone/Acetaminophen [Hydrocodone-Acetamin 10-325 mg] 1 tab PO Q4H PRN 02/08 [History] Nystatin/Triamcinolone Crm [Mycolog Crm] 1 applic TOP BID 03/25/20 [History] Papaverine/Phentolamine/Water [Papavrn 30 mg-Phento 1 mg/ml] 1 ml ICAVER ASDIRECTED PRN 03/25/20 [History] Sildenafil [Viagra] 100 mg PO ASDIRECTED PRN 03/25/20 [History] Triamcinolone Acetonide [Triamcinolone Acetonide 0.1% Crm] 1 applic TOP BID 02/08 [History] Past Medical History HEENT History: Reports: Cataract, Hard of Hearing, Impaired Vision Other HEENT History: sinus infections. seasonal allergies Cardiovascular History: Reports: High Cholesterol, Hypertension, SOB on Exertion Respiratory History: Reports: Asthma, COPD, Sleep Apnea, SOB Gastrointestinal History: Reports: Chronic Constipation, Diverticulosis, GERD, Hemorrhoids Other Gastrointestinal History: stomach inflamation. IBS Genitourinary History: Reports: Neurogenic Bladder, Prostate Disorder, Retention , Urinary, UTI, Recurrent, Other (See Below) Other Genitourinary History: self caths. erectile dysfunction Musculoskeletal History: Reports: Arthritis, Back Pain, Chronic, Fracture, Neck Pain, Chronic Neurological History: Reports: Concussion, Headaches, Chronic, Head Trauma Psychiatric History: Reports: Anxiety, Depression Endocrine/Metabolic History: Reports: Diabetes, Type II Other Endocrine/Metabolic History: MULTINODULAR THYROID WITH THYROIDECTOMY Hematologic History: Reports: Blood Transfusion(s) Oncologic (Cancer) History: Reports: Bladder, Prostate, Thyroid Dermatologic History: Reports: Psoriasis - Infectious Disease History Infectious Disease History: Reports: Chicken Pox, Influenza, Measles, Mumps - Past Surgical History HEENT Surgical History: Reports: Eye Surgery Other HEENT Surgeries/Procedures: removed piece of steel Cardiovascular Surgical History: Reports: None Respiratory Surgical History: Reports: None GI Surgical History: Reports: Colonoscopy, EGD Other GI Surgeries/Procedures: 24 INCHES OF COLON REMOVED DUE TO DIVERTICULITIS Male Surgical History: Reports: Cystectomy Endocrine Surgical History: Reports: Thyroidectomy Other Neurological Surgeries/Procedures: INJECTIONS IN BACK FOR ARTHRITIS AND IN SHOULDERS Musculoskeletal Surgical History: Reports: Shoulder Surgery Other Musculoskeletal Surgeries/Procedures:: LEFT ROTATER CUFF REPAIR. RIGHT ROTATER CUFF REPAIR NEEDED AND NOW REINJURED RIGHT SHOULDER Dermatological Surgical History: Reports: None Social & Family History - Family History Family Medical History: Noncontributory - Caffeine Use Caffeine Use: Reports: Coffee, Soda ED ROS GENERAL - Review of Systems Review Of Systems: See Below Constitutional: Reports: Fever, Weakness HEENT: Reports: No Symptoms Cardiovascular: Denies: Chest Pain, Syncope GI/Abdominal: Reports: Nausea. Denies: Abdominal Pain, Vomiting : Denies: Dysuria, Flank Pain Musculoskeletal: Denies: Neck Pain, Shoulder Pain, Arm Pain, Back Pain, Hand Pain, Leg Pain, Foot Pain Skin: Denies: Cyanosis, Jaundice, Mottled, Pallor, Diaphoresis Neurological: Denies: Confusion, Dizziness, Headache, Seizure, Syncope, Trouble Speaking Psychiatric: Denies: Agitation, Anxiety, Confusion ED EXAM, GENERAL - Physical Exam Exam: See Below Exam Limited By: No Limitations General Appearance: Alert, WD/WN, No Apparent Distress Eye Exam: Bilateral Eye: EOMI, Normal Inspection, PERRL Ears: Normal External Exam, Hearing Grossly Normal Nose: Normal Inspection, No Blood Throat/Mouth: Normal Inspection, Normal Lips, Normal Voice, No Airway Compromise Head: Atraumatic, Normocephalic Neck: Normal Inspection, Supple, Full Range of Motion Respiratory/Chest: No Accessory Muscle Use, Crackles (RLL), Wheezing (mild transient). No: Rhonchi, Stridor Cardiovascular: Normal Peripheral Pulses, Regular Rate, Rhythm, No Murmur Peripheral Pulses: 2+: Carotid (L), Carotid (R), Radial (L), Radial (R), Dorsalis Pedis (L), Dorsalis Pedis (R) GI/Abdominal: Normal Bowel Sounds, Soft, Non-Tender, No Organomegaly, No Distention Back Exam: Normal Inspection, Full Range of Motion Extremities: Normal Inspection, Normal Range of Motion Neurological: Alert, Oriented, Normal Cognition, No Motor/Sensory Deficits Psychiatric: Normal Affect, Normal Mood Skin Exam: Warm, Dry, Intact, Normal Color, No Rash Course - Vital Signs Last Recorded V/S: Last Vital Signs Temp 96.7 F L 03/25/20 07:00 Pulse 95 03/25/20 07:00 Resp 22 H 03/25/20 07:00 BP 151/87 H 03/25/20 07:00 Pulse Ox 97 03/25/20 07:00 - Orders/Labs/Meds Orders: Active Orders 24 hr Category Date Time Status Peripheral IV Care [RC] . DIRECTED Care 03/25/20 06:58 Active Sodium Chloride 0.9% [Saline Flush] Med 03/25/20 06:58 Active 10 ml FLUSH Q8HR PRN Peripheral IV Insertion Adult [OM.PC] Routine Oth 03/25/20 06:58 Ordered Medication Orders Sodium Chloride (Saline Flush) 10 ml FLUSH Q8HR PRN PRN Reason: keep vein open Last Admin: 03/25/20 09:16 Dose: 10 ml Admin: 03/25/20 07:01 Dose: 10 ml Labs: Laboratory Tests 03/25/20 03/25/20 03/25/20 Range/Units 06:55 06:55 07:45 WBC 9.44 (5.00-10.00) 10^3/uL RBC 4.43 L (4.50-6.00) 10^6/uL Hgb 12.9 L (13.0-17.0) g/dL Hct 39.8 L (40.0-52.0) % MCV 89.8 (82.0-92.0) fL MCH 29.1 (27.0-31.0) pg MCHC 32.4 (32.0-36.0) g/dL RDW 14.0 (11.5-14.5) % Plt Count 526 H (150-400) 10^3/uL MPV 8.2 (7.4-10.4) fL Immature Gran % (Auto) 0.2 (0.0-5.0) % Neut % (Auto) 76.8 H (50.0-70.0) % Lymph % (Auto) 13.0 L (20.0-40.0) % [place] % (Auto) 8.3 H (2.0-8.0) % Eos % (Auto) 1.0 (1.0-3.0) % Baso % (Auto) 0.7 (0.0-1.0) % Neut # (Auto) 7.25 H (2.50-7.00) 10^3/uL Lymph # (Auto) 1.23 (1.00-4.00) 10^3/uL [place] # (Auto) 0.78 (0.10-0.80) 10^3/uL Eos # (Auto) 0.09 L (0.10-0.30) 10^3/uL Baso # (Auto) 0.07 (0.00-0.10) 10^3/uL Immature Gran # (Auto) 0.02 (0.00-0.50) 10^3/uL Sodium 137 (136-145) mmol/L Potassium 4.8 (3.3-5.3) mmol/L Chloride 101 (98-115) mmol/L Carbon Dioxide 22.6 (21.0-32.0) mmol/L Anion Gap 18.2 H (5-15) mmol/L BUN 13 (6-25) mg/dL Creatinine 1.30 H (0.51-1.17) mg/dL Est Cr Clr Drug Dosing 50.69 mL/min Estimated GFR (MDRD) 54 mL/min Glucose 176 H (75 - 99) mg/dL Calcium 9.3 (8.7-10.3) mg/dL Total Bilirubin 0.4 (0.2-1.0) mg/dL AST 26 (15-37) U/L ALT 22 (12-78) U/L Alkaline Phosphatase 95 (46-116) IU/L Total Protein 7.6 (6.4-8.2) g/dL Albumin 3.18 (3.00-4.80) g/dL SARS-CoV-2 RNA (RT-PCR) Negative (NEGATIVE) Meds: Medications Generic Name Dose Route Start Last Admin Trade Name Freq PRN Reason Stop Dose Admin Sodium Chloride 10 ml 03/25/20 06:58 03/25/20 09:16 Saline Flush FLUSH 10 ml Q8HR PRN Administration keep vein open Discontinued Medications Generic Name Dose Route Start Last Admin Trade Name Freq PRN Reason Stop Dose Admin Sodium Chloride 1,000 mls @ 999 mls/hr 03/25/20 06:43 03/25/20 06:57 Normal Saline IV 03/25/20 07:43 999 mls/hr .BOLUS ONE Administration Sodium Chloride 1,000 mls @ 999 mls/hr 03/25/20 08:39 03/25/20 09:18 Normal Saline IV 03/25/20 09:39 999 mls/hr .BOLUS ONE Administration Ketorolac Tromethamine 30 mg 03/25/20 07:54 03/25/20 07:56 Toradol IVPUSH 03/25/20 07:55 30 mg ONETIME ONE Administration Ketorolac Tromethamine Confirm 03/25/20 07:54 03/25/20 08:01 Toradol Administered 03/25/20 07:55 Not Given Dose 30 mg .ROUTE .STK-MED ONE Metoclopramide HCl 10 mg 03/25/20 09:30 Reglan IVPUSH 03/25/20 09:31 ONETIME ONE Ondansetron HCl 4 mg 03/25/20 06:43 03/25/20 06:56 Zofran IVPUSH 03/25/20 06:44 4 mg ONETIME ONE Administration Ondansetron HCl 4 mg 03/25/20 09:09 03/25/20 09:13 Zofran IVPUSH 03/25/20 09:10 4 mg ONETIME ONE Administration - Re-Assessments/Exams Free Text/Narrative Re-Assessment/Exam: 03/25/20 09:03 We obtained the troponin result from [place] to follow up the one we did here a couple days ago and it trended down to 0.019 from our test of 0.10. Patient tells me he hasn't had much urine output or drank much water the past two days. Patient also hasn't been able to take/swallow any of his usual medications the past two days his says. 03/25/20 09:20 Urine culture from 03/18/20 showed mixed radha suggestive of contamination. He has been on Bactrim DS bid since 03/18 for suspected UTI and usually takes Bactrim qd for prophylaxis due to his self-cath routine. 03/25/20 09:39 The patient is still having nausea and vomiting (with minimal production). The second dose of Zofran 4 mg has been in 20 minutes without benefit yet. I'm checking with pharmacy about the next antiemetic option. We don't have compazine IV and Reglan isn't recommended with his Seroquel but he hasn't had that the past two days. 03/25/20 09:51 Pharmacy and I discussed the options and feel that Reglan IV is the best option now. 03/25/20 09:53 Rad report on CXR reveals a stable small pleural effusion but no infiltrates, normal heart size. In [place] two days ago he was told the pleural effusion was likely a result of his recent open heart surgery. Abdominal xrays show unobstructed bowel gas pattern but no acute findings. 03/25/20 10:25 Discussed case with SILVIA Alejo who will admit to hospital. Discussed findings and plan with patient, and daughter. Patient stable. Departure - Departure Time of Disposition: 10:16 Disposition: Admitted As Inpatient 65 Condition: Good Clinical Impression: General weakness, Recent major surgery, Dehydration Nausea and vomiting Qualifiers: Vomiting type: unspecified Vomiting Intractability: intractable Qualified Code( s): R11.2 - Nausea with vomiting, unspecified - Discharge Information Referrals: Ana Hernandez PA-C [Primary Care Provider] - Forms: ED Department Discharge Sepsis Event Note - Evaluation Sepsis Screening Result: Possible Sepsis Risk - Focused Exam Vital Signs: Vital Signs Temp Pulse Resp BP Pulse Ox 03/25/20 07:00 96.7 F L 95 22 H 151/87 H 97 Date Exam was Performed: 03/25/20 Time Exam was Performed: 09:45 - My Orders Last 24 Hours: My Active Orders 03/25/20 06:58 Peripheral IV Care [RC] . DIRECTED Sodium Chloride 0.9% [Saline Flush] 10 ml FLUSH Q8HR PRN Peripheral IV Insertion Adult [OM.PC] Routine - Assessment/Plan Last 24 Hours: My Active Orders 03/25/20 06:58 Peripheral IV Care [RC] . DIRECTED Sodium Chloride 0.9% [Saline Flush] 10 ml FLUSH Q8HR PRN Peripheral IV Insertion Adult [OM.PC] Routine
[2020-03-25] MEDS ORDERED: Ketorolac 30 MG/ML SDV ONE (07:54)
[2020-03-25] MEDS ORDERED: Ketorolac 30 MG/ML SDV IVPUSH ONE (07:54)
[2020-03-25 07:57] LABS: ANION GAP 18.2 mmol/L (5-15)
--- NOTE | 2020-03-25 09:28 | CR ---
[id number] RAD/RAD Chest PA And Lateral EXAM: FRONTAL AND LATERAL CHEST INDICATION: NON LOCALIZED ABDOMEN PAIN,MILD BLOATING. COMPARISON: March 23, 2020. DISCUSSION: Hyperinflation is compatible with chronic obstructive pulmonary disease. Stable blunting of the left posterior costophrenic angle, pleural scarring versus small effusion There is chronic left base scarring with no definite acute infiltrates. Normal heart size. Sternotomy. Chronic right rib fractures are unchanged. IMPRESSION: 1. Stable small left pleural effusion. Zac Fried MD 03/25/20 0927 Thank you for allowing us to participate in the care of your patient.
[2020-03-25] MEDS ORDERED: Metoclopramide 10 MG/2 ML SDV IVPUSH ONE (09:30)
--- NOTE | 2020-03-25 09:32 | CR ---
[id number] RAD/RAD Abd Flat and Upright 2V EXAM: RAD Abd Flat and Upright 2V INDICATION: NON LOCALIZED ABDOMEN PAIN,MILD BLOATING. COMPARISON: September 2019. DISCUSSION: Unobstructed bowel gas pattern. No radiographically evident pneumoperitoneum. IMPRESSION: No acute findings in the abdomen. Gilbert Velasquez MD 03/25/20 0931 Thank you for allowing us to participate in the care of your patient.
[2020-03-25] MEDS ORDERED: Albuterol 8 GM Inhaler INH PRN (11:39)
[2020-03-25] MEDS: Pantoprazole 40 MG Vial IVPUSH SCH ×2 (12:26→23:50)
[2020-03-25] MEDS: Sodium Chloride 0.9% 1,000 ML IV SCH ×2 (12:27→20:33)
[2020-03-25] MEDS: Enoxaparin 100 MG/1 ML Syringe SUBCUT SCH (12:38)
[2020-03-25] MEDS: Ondansetron 4 MG/2 ML SDV IV PRN ×2 (15:13→22:09)
[2020-03-25] MEDS ORDERED: Alum Hydrox/Mag Hydrox/Simeth 30 ML, Lidocaine 2% 15 ML PO PRN ×2 (16:18)
[2020-03-25] MEDS: PROMETHAZINE PLO TOP PRN (17:19)
[2020-03-25] MEDS: Alum Hydrox/Mag Hydrox/Simeth 30 ML, Lidocaine 2% 15 ML PO PRN ×2 (18:01)
[2020-03-26] MEDS: Sodium Chloride 0.9% 1,000 ML IV SCH ×3 (04:41→21:37)
[2020-03-26 07:44] LABS: ANION GAP 14.8 mmol/L (5-15); CHLORIDE,CL 105 mmol/L (98-115); SODIUM,NA 139 mmol/L (136-145)
[2020-03-26] MEDS ORDERED: Glycopyrrolate 15.6 MCG Cap.W.Dev Kit of 6 IH SCH (08:00)
[2020-03-26] MEDS: PROMETHAZINE PLO TOP PRN (09:03)
[2020-03-26] MEDS: Alum Hydrox/Mag Hydrox/Simeth 30 ML, Lidocaine 2% 15 ML PO PRN ×2 (09:04)
[2020-03-26] MEDS: Glycopyrrolate 15.6 MCG Cap.W.Dev Kit of 6 IH SCH ×2 (09:19→20:31)
--- NOTE | 2020-03-26 09:38 | PCM.CONS ---
H&P History of Present Illness - General Date of Service: 03/26/20 Admit Problem/Dx: Admission Diagnosis/Problem Admission Diagnosis/Problem Nausea and vomiting Source of Information: Patient, EMS Notes Reviewed, Old Records History Limitations: Reports: No Limitations - History of Present Illness Initial Comments - Free Text/Narative: I am seeing Sixto James today as a consultation request by Ana Hernandez PA-C , to ensure that Sixto is getting the most appropriate care. Sixto has a PMH that includes the following problems: CAD s/p CABG x 4 COPD Generalized abdominal pain Anxiety BPH Chronic back pain Depression Diabetes Mellitus, insulin dependent HTN Essential tramor Hyperlipidemia Hypothyroidism [place] Neurogenic bladder with self catheterization Hx PE Recurrent UTI He has a very complicated and complex medical history. Of note, he was scheduled for shoulder surgery on 02/11/2020 at [facility] in [place], [place]. He had an EKG done that day which was abnormal so his surgery was canceled and cardiology was consulted. He had a stress test on 02/17 which was abnormal, which led to a cardiac cath which showed severe 3 vessel disease. He had a consultation at [facility] in [place] on 03/03 to discuss CABG. He was admitted 03/04 - 03/08 and underwent CABG x 4: BLACKMON to LAD, aortoa to SGV to OM1, OM2 and posterior descending-off pump. He was at home with home health and did OK. He presented to the ER on 03/23 in [place] with chest pain and a cough. Troponin was elevated and he was transferred to [facility] and had a same day admission and discharge as his repeat troponin trended down. He presented to the [place] ER again on 03/25 with nausea and dry heaves, unable to keep any meds, liquids or food down. His endorsed he had also had some diarrhea. He was having abdominal pain described as having a "sore stomach". He was admitted to [facility] on 03/25. Hemoglobin trended down from 12.9 to 10.3. Gastroccult was positive. He received IVF's, creatinine was 1.3 initially and trended down to 1.03 this morning. His nausea has improved with phenergan PLO gel as he was not really responding to Zofran. When I see him this morning he is lying in bed. He is no longer nauseated but does not feel hungry. He was able to tolerate some yogurt this morning but isn' t wanting anything else. He has epigastric tenderness. He reports "I feel as weak as a kitten". Middle Abdomen Pain Score (Numeric/FACES): 3 - Related Data Allergies/Adverse Reactions: Allergies Allergy/AdvReac Type Severity Reaction Status Date / Time Penicillins Allergy Hives Verified 03/25/20 07:16 Home Medications: Home Meds Arformoterol [Brovana] 15 mcg NEB BIDRT 08/17/17 [History] Budesonide [Pulmicort] 0.5 mg NEB BIDRT 08/17/17 [History] Diazepam [Valium] 5 mg PO BID PRN 08/17/17 [History] Flaxseed Oil [Flaxseed] 2,000 mg PO BID 08/17/17 [History] Insulin Glarg,Human.Rec.Analog [LantUS Solostar] 60 unit SUBCUT DAILY 08/17/17 [ History] Insulin Lispro [Humalog Kwikpen U-100] 18 unit SQ BID PRN 08/17/17 [History] Levothyroxine Sodium [Synthroid] 137 mcg PO ACBREAKFAST 08/17/17 [History] Pravastatin Sodium [Pravachol] 40 mg PO BEDTIME 08/17/17 [History] Tiotropium [Spiriva HandiHaler] 18 mcg INH DAILY 08/17/17 [History] traMADol HCl [Tramadol HCl ER] 300 mg PO BEDTIME 08/17/17 [History] traZODone HCl [Trazodone HCl] 100 mg PO BEDTIME 08/17/17 [History] L.acidoph,Paracasei, B.lactis [Probiotic] 100 mg PO BID 11/10/19 [History] QUEtiapine [SEROquel] 50 mg PO DAILY 11/10/19 [History] Cranberry Fruit Extract [Cranberry] 500 mg PO DAILY 12/18/19 [History] Acetaminophen [Pain Reliever] 500 mg PO Q4H PRN 03/23/20 [History] Apixaban [Eliquis] 5 mg PO BID 03/23/20 [History] Cholecalciferol (Vitamin D3) [Vitamin D3] 50 mcg PO DAILY 03/23/20 [History] Docusate Sodium 250 mg PO DAILY 03/23/20 [History] Magnesium Oxide 500 mg PO BID 03/23/20 [History] Metoprolol Tartrate 12.5 mg PO BID 03/23/20 [History] Oxymetazoline [Nasal Decongestant] 2 spray NASBOTH BEDTIME 03/23/20 [History] Sennosides/Docusate Sodium [Senna Plus 8.6-50 mg Softgel] 2 tab PO DAILY PRN 12/11 [History] Sulfamethoxazole/Trimethoprim [Bactrim Ds Tablet] 1 each PO BID 03/23/20 [ History] Albuterol [Ventolin HFA] 2 puff INH Q4H PRN 03/25/20 [History] Cranberry Fruit Extract [Cranberry] 500 mg PO BEDTIME 03/25/20 [History] Hydrocodone/Acetaminophen [Hydrocodone-Acetamin 10-325 mg] 1 tab PO Q4H PRN 02/08 [History] Nystatin/Triamcinolone Crm [Mycolog Crm] 1 applic TOP BID 03/25/20 [History] Papaverine/Phentolamine/Water [Papavrn 30 mg-Phento 1 mg/ml] 1 ml ICAVER ASDIRECTED PRN 03/25/20 [History] Sildenafil [Viagra] 100 mg PO ASDIRECTED PRN 03/25/20 [History] Triamcinolone Acetonide [Triamcinolone Acetonide 0.1% Crm] 1 applic TOP BID 02/08 [History] Past Medical History HEENT History: Reports: Cataract, Hard of Hearing, Impaired Vision Other HEENT History: sinus infections. seasonal allergies Cardiovascular History: Reports: High Cholesterol, Hypertension, SOB on Exertion Respiratory History: Reports: Asthma, COPD, Sleep Apnea, SOB Gastrointestinal History: Reports: Chronic Constipation, Diverticulosis, GERD, Hemorrhoids, Irritable Bowel Syndrome Other Gastrointestinal History: stomach inflamatio Genitourinary History: Reports: Neurogenic Bladder, Prostate Disorder, Retention , Urinary, UTI, Recurrent, Other (See Below) Other Genitourinary History: self caths. erectile dysfunction Musculoskeletal History: Reports: Arthritis, Back Pain, Chronic, Fracture, Neck Pain, Chronic, Other (See Below) Other Musculoskeletal History: Shoulder pain Neurological History: Reports: Concussion, Headaches, Chronic, Head Trauma Psychiatric History: Reports: Anxiety, Depression Endocrine/Metabolic History: Reports: Diabetes, Type II Other Endocrine/Metabolic History: MULTINODULAR THYROID WITH THYROIDECTOMY Hematologic History: Reports: Blood Transfusion(s), Other (See Below) Other Hematologic History: Unknown as to when patient had blood transfusion. Oncologic (Cancer) History: Reports: Thyroid Dermatologic History: Reports: Psoriasis - Infectious Disease History Infectious Disease History: Reports: Chicken Pox, Influenza, Measles, Mumps - Past Surgical History HEENT Surgical History: Reports: Eye Surgery Other HEENT Surgeries/Procedures: removed piece of steel Cardiovascular Surgical History: Reports: Coronary Artery Bypass Respiratory Surgical History: Reports: None GI Surgical History: Reports: Colonoscopy, EGD Other GI Surgeries/Procedures: 24 INCHES OF COLON REMOVED DUE TO DIVERTICULITIS Male Surgical History: Reports: Cystectomy Endocrine Surgical History: Reports: Thyroidectomy Other Neurological Surgeries/Procedures: INJECTIONS IN BACK FOR ARTHRITIS AND IN SHOULDERS Musculoskeletal Surgical History: Reports: Shoulder Surgery Other Musculoskeletal Surgeries/Procedures:: LEFT ROTATER CUFF REPAIR. RIGHT ROTATER CUFF REPAIR NEEDED AND NOW REINJURED RIGHT SHOULDER Dermatological Surgical History: Reports: None Social & Family History - Family History Family Medical History: Noncontributory Endocrine/Metabolic: Reports: Diabetes, type II - Tobacco Use Smoking Status *Q: Former Smoker Used Tobacco, but Quit: Yes Month/Year Tobacco Last Used: 10/1997 - Caffeine Use Caffeine Use: Reports: None - Recreational Drug Use Recreational Drug Use: No H&P Review of Systems - Review of Systems: Review Of Systems: Comprehensive ROS is negative, except as noted in HPI. Exam - Exam Exam: See Below - Vital Signs Vital Signs: Last Vital Signs Temp 98.5 F 03/26/20 06:06 Pulse 68 03/26/20 06:06 Resp 24 H 03/26/20 06:06 BP 107/53 L 03/26/20 06:06 Pulse Ox 96 03/26/20 06:06 Weight: 176 lb - Exam General: Alert, Oriented, Cooperative, Mild Distress Neck: Supple Lungs: Clear to Auscultation, Normal Respiratory Effort Cardiovascular: Regular Rate, Regular Rhythm GI/Abdominal Exam: Normal Bowel Sounds, Soft, Tender (Localized epigastric tenderness with moderate palpation.) Extremities: No Pedal Edema - Patient Data Lab Results Last 24 hrs: Laboratory Results - last 24 hr 03/25/20 03/26/20 03/26/20 Range/Units 06:55 05:55 07:00 WBC 7.55 (5.00-10.00) 10^3/uL RBC 3.45 L (4.50-6.00) 10^6/uL Hgb 10.3 L D (13.0-17.0) g/dL Hct 31.6 L (40.0-52.0) % MCV 91.6 (82.0-92.0) fL MCH 29.9 (27.0-31.0) pg MCHC 32.6 (32.0-36.0) g/dL RDW 13.7 (11.5-14.5) % Plt Count 373 D (150-400) 10^3/uL MPV 8.1 (7.4-10.4) fL Immature Gran % (Auto) 0.3 (0.0-5.0) % Neut % (Auto) 71.3 H (50.0-70.0) % Lymph % (Auto) 17.2 L (20.0-40.0) % Waller % (Auto) 9.9 H (2.0-8.0) % Eos % (Auto) 0.5 L (1.0-3.0) % Baso % (Auto) 0.8 (0.0-1.0) % Neut # (Auto) 5.38 (2.50-7.00) 10^3/uL Lymph # (Auto) 1.30 (1.00-4.00) 10^3/uL Waller # (Auto) 0.75 (0.10-0.80) 10^3/uL Eos # (Auto) 0.04 L (0.10-0.30) 10^3/uL Baso # (Auto) 0.06 (0.00-0.10) 10^3/uL Immature Gran # (Auto) 0.02 (0.00-0.50) 10^3/uL Sodium (136-145) mmol/L Potassium (3.3-5.3) mmol/L Chloride (98-115) mmol/L Carbon Dioxide (21.0-32.0) mmol/L Anion Gap (5-15) mmol/L BUN (6-25) mg/dL Creatinine (0.51-1.17) mg/dL Est Cr Clr Drug Dosing mL/min Estimated GFR (MDRD) mL/min Glucose (75 - 99) mg/dL Calcium (8.7-10.3) mg/dL Total Bilirubin (0.2-1.0) mg/dL AST (15-37) U/L ALT (12-78) U/L Alkaline Phosphatase (46-116) IU/L Troponin I 0.07 (0.00-0.070) ng/mL Total Protein (6.4-8.2) g/dL Albumin (3.00-4.80) g/dL Amylase (25-125) U/L Lipase (73-393) U/L Specimen Type Urinfol Urine Color Light yellow (YELLOW) Urine Appearance Clear (CLEAR) Urine pH 5.5 (5.0-9.0) Ur Specific [place] 1.015 (1.005-1.030) Urine Protein Negative (NEGATIVE) mg/dL Urine Glucose (UA) Negative (NEGATIVE) mg/dL Urine Ketones 15 H (NEGATIVE) mg/dL Urine Occult Blood Moderate H (NEGATIVE) Urine Nitrite Negative (NEGATIVE) Urine Bilirubin Negative (NEGATIVE) Urine Urobilinogen 0.2 (0.2-1.0) E.U./dL Ur Leukocyte Esterase Small H (NEGATIVE) Urine RBC 5-10 H (0-5) /HPF Urine WBC 10-20 H (0-5) /HPF Urine Bacteria Few (NONE TO FEW) /HPF 06//20 Range/Units 07:00 WBC (5.00-10.00) 10^3/uL RBC (4.50-6.00) 10^6/uL Hgb (13.0-17.0) g/dL Hct (40.0-52.0) % MCV (82.0-92.0) fL MCH (27.0-31.0) pg MCHC (32.0-36.0) g/dL RDW (11.5-14.5) % Plt Count (150-400) 10^3/uL MPV (7.4-10.4) fL Immature Gran % (Auto) (0.0-5.0) % Neut % (Auto) (50.0-70.0) % Lymph % (Auto) (20.0-40.0) % Waller % (Auto) (2.0-8.0) % Eos % (Auto) (1.0-3.0) % Baso % (Auto) (0.0-1.0) % Neut # (Auto) (2.50-7.00) 10^3/uL Lymph # (Auto) (1.00-4.00) 10^3/uL Waller # (Auto) (0.10-0.80) 10^3/uL Eos # (Auto) (0.10-0.30) 10^3/uL Baso # (Auto) (0.00-0.10) 10^3/uL Immature Gran # (Auto) (0.00-0.50) 10^3/uL Sodium 139 (136-145) mmol/L Potassium 4.0 (3.3-5.3) mmol/L Chloride 105 (98-115) mmol/L Carbon Dioxide 23.2 (21.0-32.0) mmol/L Anion Gap 14.8 (5-15) mmol/L BUN 10 (6-25) mg/dL Creatinine 1.03 (0.51-1.17) mg/dL Est Cr Clr Drug Dosing 68.02 mL/min Estimated GFR (MDRD) > 60 mL/min Glucose 111 H (75 - 99) mg/dL Calcium 7.8 L D (8.7-10.3) mg/dL Total Bilirubin 0.3 (0.2-1.0) mg/dL AST 27 (15-37) U/L ALT 19 (12-78) U/L Alkaline Phosphatase 69 (46-116) IU/L Troponin I (0.00-0.070) ng/mL Total Protein 6.1 L (6.4-8.2) g/dL Albumin 2.67 L (3.00-4.80) g/dL Amylase 23 L (25-125) U/L Lipase 76 (73-393) U/L Specimen Type Urine Color (YELLOW) Urine Appearance (CLEAR) Urine pH (5.0-9.0) Ur Specific [place] (1.005-1.030) Urine Protein (NEGATIVE) mg/dL Urine Glucose (UA) (NEGATIVE) mg/dL Urine Ketones (NEGATIVE) mg/dL Urine Occult Blood (NEGATIVE) Urine Nitrite (NEGATIVE) Urine Bilirubin (NEGATIVE) Urine Urobilinogen (0.2-1.0) E.U./dL Ur Leukocyte Esterase (NEGATIVE) Urine RBC (0-5) /HPF Urine WBC (0-5) /HPF Urine Bacteria (NONE TO FEW) /HPF Result Diagrams: 03/26/20 07:00 03/26/20 07:00 Mar Results Last 24 hrs: Microbiology 03/25/20 15:07 Gastric Occult Blood - Final Gastric Fluid Sepsis Event Note - Evaluation Sepsis Screening Result: No Definite Risk - Focused Exam Vital Signs: Vital Signs Temp Pulse Resp BP Pulse Ox 03/26/20 06:06 98.5 F 68 24 H 107/53 L 96 03/26/20 02:50 99.3 F 90 24 H 133/74 93 L 03/25/20 23:00 98.7 F 85 24 H 125/71 95 Date Exam was Performed: 03/26/20 Time Exam was Performed: 10:07 Consult PN Assessment/Plan Procedures: Procedures ASSAY OF NATRIURETIC PEPTIDE (04/11/19) ASSAY OF TROPONIN QUANT (12/18/19) ASSAY THYROID STIM HORMONE (10/20/19) BLOOD CULTURE FOR BACTERIA (08/17/17) CHEST X-RAY 2VW FRONTAL&LATL (09/14/17) COMPLETE CBC W/AUTO DIFF WBC (03/18/20) COMPREHEN METABOLIC PANEL (03/18/20) CT ABD & PELV W/CONTRAST (09/23/19) CT ABD & PELVIS W/O CONTRAST (10/20/19) CT HEAD/BRAIN W/O DYE (09/16/15) CT NECK SPINE W/O DYE (08/17/15) CT THORAX W/DYE (01/15/20) DIAGNOSTIC COLONOSCOPY (11/11/19) EGD BIOPSY SINGLE/MULTIPLE (11/11/19) ELECTROCARDIOGRAM TRACING (12/18/19) EMERGENCY DEPT VISIT (12/18/19) EMERGENCY DEPT VISIT (12/18/19) EMERGENCY DEPT VISIT (09/16/15) EMERGENCY DEPT VISIT (09/16/15) EXTRACRANIAL BILAT STUDY (08/18/15) FIBRIN DEGRADATION QUANT (12/18/19) GLUCOSE BLOOD TEST (11/11/19) GLYCOSYLATED HEMOGLOBIN TEST (10/20/19) MANUAL THERAPY 1/> REGIONS (04/08/19) METABOLIC PANEL TOTAL CA (11/01/18) MICROBE SUSCEPTIBLE MAR (08/17/17) MRI ABDOMEN W/O & W/DYE (10/23/13) MRI BRAIN STEM W/O DYE (02/07/18) MRI JOINT UPR EXTREM W/O DYE (11/13/19) PT EVAL MOD COMPLEX 30 MIN (03/19/19) REMOTE 30 DAY ECG REV/REPORT (08/18/15) RENAL FUNCTION PANEL (09/22/19) ROUTINE VENIPUNCTURE (03/18/20) THER/PROPH/DIAG INJ IV PUSH (12/18/19) THERAPEUTIC EXERCISES (04/08/19) TTE W/DOPPLER COMPLETE (07/23/17) URINALYSIS AUTO W/SCOPE (03/18/20) URINE BACTERIA CULTURE (11/24/19) URINE CULTURE/COLONY COUNT (03/18/20) X-RAY EXAM CHEST 1 VIEW (12/18/19) X-RAY EXAM CHEST 2 VIEWS (04/11/19) X-RAY EXAM OF HAND (06/12/19) X-RAY EXAM OF HAND (10/26/16) X-RAY EXAM OF SHOULDER (08/27/19) Problem List Initiated/Reviewed/Updated: Yes Requesting Provider: Ana Hernandez Date Consult Requested: 03/26/20 Reason for Consult: Internal Medicine Consult Patient History Reviewed: Yes Admission H&P Reviewed: Yes Consult Result/Summary:: I have reviewed his outside medical records extensively as well as his clinic chart and had discussion with his PCP, Ana Hernandez. I agree with his current care plan. His dehydration has improved with his IVF's. He has a gee catheter in place due to weakness and risk for falls going to the bathroom. He requires self catheterization to empty his bladder so a gee catheter is appropriate at this time. PT consult will be obtained for possible swingbed admission. Agree with proceeding with upper GI endoscopy on 03/[address] Ruiz is here. Phenergan PLO gel seems to be helping his nausea. Would recommend diet as tolerated. Agree with IV protonix for possible bleeding gastric ulcer. Agree with daily labs. He denies pain above his baseline, may continue with outpatient pain management. If, however, he is not tolerating oral intake then could try morphine IV for pain control. I will continue to follow along with you. Notified Requestor: Yes Time Spent (in minutes): 40
[2020-03-26] MEDS: Pantoprazole 40 MG Vial IVPUSH SCH (12:04)
[2020-03-26] MEDS: Enoxaparin 100 MG/1 ML Syringe SUBCUT SCH (12:04)
--- NOTE | 2020-03-26 12:20 | PN ---
03/26/2020 PATIENT NAME: JOSÉ ANTONIO BLANCAS HISTORY OF PRESENT ILLNESS: This is a 74-year-old male who was admitted through the emergency room yesterday. He had woken up yesterday morning with nausea and "dry heaves" that lasted the night prior to. He did have a couple of emesis in the emergency room. He received IV fluids and Zofran as well as Reglan and Toradol. This patient has a very complicated medical history. He has a history of COPD, anxiety, diabetes mellitus, hypothyroidism, hypercholesterolemia, chronic back pain, neurogenic bladder which requires him to catheterize himself several times per day, pulmonary embolus, coronary artery disease, and recurrent urinary tract infections. Approximately 2 months ago, the patient was scheduled for shoulder surgery. As they were wheeling him to the OR at [facility] in [place], [place], he experienced some left-sided chest pain. He was taken to the emergency room. His surgical procedure was canceled. He did rule out for GA. He went on to have a stress test which was positive for ischemic changes. [facility] where he was found to have 3-vessel disease. He was then given the option to go to [place] or [place] for coronary artery bypass graft surgery and he chose to go to [facility] in [place]. Dr. Cleopatra Dyer, cardiothoracic surgeon, performed his surgery on 03/04/2020. He ended up having a CABG x4. Arteries that were bypassed were BLACKMON to LAD, aorta to SVG to obtuse marginal 1, obtuse marginal 2 and posterior descending off-pump. Endo leg vein harvest. The patient reports that he did have some postoperative atrial fibrillation, however, he did convert back to normal sinus rhythm. The only new medication on discharge was metoprolol. Due to the patient's nausea, he has not taken any of his medications for the past 2 days prior to admission. This is actually his 3rd day without any oral medications. We did hold all oral medications due to the fact that the patient was nauseated and had vomited several times. We did change his anticoagulation from oral Eliquis to Lovenox. He is receiving IV fluids at 125 mL/hour. The patient has not had an emesis now today, in fact he has not had an emesis since 6 p.m. last night. He has been receiving ondansetron as well as Phenergan PLO gel. He was able to eat breakfast this morning. The patient states he does have "tummy pain." Gastroccult was performed on the emesis yesterday and found to be positive. The patient does have a GI bleed. The emesis was described by the nursing staff as being brown in color. The patient was placed on Protonix 40 mg daily. He was also given a GI cocktail, which was effective for him. Lab data from today reveals a hemoglobin which has dropped from 12.9 to 10.3. I do believe that this is dilutional, however, it may be postsurgical anemia as well. Yesterday, his anion gap was 18.2, now it is 14.3. BUN was normal yesterday at 13 and now is 10 today. Creatinine was 1.3 yesterday and now has improved to 1.03. Glucose this morning was 111. Calcium was low at 7.8. Total protein is 6.1, albumin 2.67. This is mostly nutritional in origin I suspect. Amylase and lipase were added to the labs and found to be within acceptable range. He does have an indwelling Mcarthur catheter. A urinalysis was performed this morning which does show moderate occult blood. Small amount of leukocyte esterase, 5-10 rbc's and 10-20 wbc's. He did have a few bacteria. As stated before, the patient does have a neurogenic bladder and self catheterizes himself often. When I saw him in followup in the clinic on 03/18/2020, he did have UTI and was instructed to increase Bactrim from once daily for UTI prophylaxis to b.i.d. He has now not had any medication for 3 days. I do not think that his UA today warrants any further treatment. The patient and his family are concerned that there may be a gallbladder issue. There was no elevation of liver function tests. Amylase and lipase were both normal. White count is normal at 7550. The patient did have atrial fibrillation yesterday on a couple of strips printed by the nursing staff. He is currently in normal sinus rhythm with a rate of 77. The patient was seen in the emergency room also on 03/23/2020. He had come in with chest pain. His troponin at that time was elevated at 0.1. He was transferred by ambulance to [place] where they repeated the troponin and discharged the patient 5 hours later. The patient was discharged at 10:30 at night. He and his were quite dissatisfied with the care that they received at the transferring facility. PHYSICAL EXAMINATION: VITAL SIGNS: Temp is 98.5, pulse 68, respirations 24, blood pressure 107/53, O2 saturation 96% on 2 L of oxygen. SKIN: The patient does appear pale. His skin is warm and dry to touch. CARDIAC: Reveals S1, S2 to be normal. Rate and rhythm are regular. No murmur, click, or gallop is auscultated. LUNGS: Clear. There are no rales, wheezes, or rhonchi. He does have a midsternal incision, which is clear without erythema, edema, or drainage. ABDOMEN: Soft, nontender. Bowel sounds present in all 4 quadrants. EXTREMITIES: He does have 2 vein harvest sites on the left lower extremity which are without erythema, edema, or drainage. IMPRESSION: 1. Nausea and vomiting. This has improved. He is responding well to the ondansetron as well as the Phenergan PLO. This will be continued. He is able to eat today and has not vomited so far. 2. Gastrointestinal bleeding with a positive Gastroccult. He will be scheduled for gastroscopy with Dr. Jorgito Ruiz on 03/30/2020 in this facility. He was started on GI protection with Protonix 40 mg IV daily yesterday. He may also continue to use the GI cocktail. 3. Dehydration, improved with IV fluids. 4. Abdominal pain. He will be scheduled for an abdominal ultrasound on Sunday. 5. Recent coronary artery bypass grafting x4 on 03/04/2020, he seems to be doing well from a cardiac standpoint. He did rule out for GA on 03/23/2020. 6. Diabetes mellitus, stable. 7. Chronic obstructive pulmonary disease, stable. 8. Neurogenic bladder. He does have an indwelling Mcarthur catheter. His UA was negative for urinary tract infection. 9. Depression and anxiety. The patient does take diazepam, and Seroquel. He has not had these medications for the past 3 days. He is receiving some IV diazepam as needed. 10.History of pulmonary embolism, on Eliquis at home. Since he is not able to take anything orally, he was changed to subcutaneous Lovenox. 11.Hypothyroidism, on replacement. 12.Deconditioning. I will request a physical therapy consultation today for this patient. I have prepared he and his family to stay as an inpatient through the weekend and possibly change to a swing bed type of care on Sunday. The patient has quite a bit of deconditioning as well as weakness. He told me today he was not even sure that he could stand. 13.Atrial fibrillation, he does seem to be in sinus rhythm at this time. We will continue to monitor him per telemetry. I did request a consultation from Internal Medicine physician, Dr. Camila Ricketts to see if she had any further suggestions or recommendations for the care of this complicated gentleman. /[id number]/MODL
[2020-03-26] MEDS: Ondansetron 4 MG/2 ML SDV IV PRN (13:04)
[2020-03-26] MEDS ORDERED: Calcium Carbonate 500 MG Tab.Chew PO PRN (15:04)
[2020-03-26] MEDS: PROMETHAZINE PLO TOP SCH ×2 (15:40→20:33)
[2020-03-26] MEDS: Alum Hydrox/Mag Hydrox/Simeth 30 ML, Lidocaine 2% 15 ML PO SCH ×4 (15:41→22:40)
--- NOTE | 2020-03-26 16:03 | PCM.SN.2 ---
- Free Text/Narrative Note: Contacted by nursing staff at 1540 that when she was going to give him some afternoon medications he noted he had chest pain. I went to see him, he states it "isn't that bad" and is localized to a small area just lateral to his areola. He has no other symptoms, specially denying SOB, diaphoresis, lightheadedness. He has continued to have nausea and has an emesis after lunch today. He now has scheduled antiemetic medications. When I push on his chest where it hurts I am able to reproduce the pain. EKG is normal. Will get BMP, troponin and CKMB. He had an episode of CP a few days ago and troponin here was 0.1. He was sent to [facility] due to recent hx of CABG x 4. They repeated troponin and sent him home the same day. He reports his chest pain was different and more intense at that time than what he has now. He is on telemetry. This seems more consistent with MSK pain, not angina. Will monitor. Repeat troponin in 4 hours.
[2020-03-26 16:21] LABS: ANION GAP 10.7 mmol/L (5-15); CHLORIDE,CL 102 mmol/L (98-115); SODIUM,NA 135 mmol/L (136-145)
[2020-03-26] MEDS: Ondansetron 4 MG/2 ML SDV IVPUSH SCH (18:48)
[2020-03-26] MEDS: traZODone 50 MG Tab PO SCH (22:47)
[2020-03-26] MEDS ORDERED: traZODone 50 MG Tab ONE (22:47)
[2020-03-27] MEDS: Pantoprazole 40 MG Vial IVPUSH SCH ×3 (00:36→23:18)
[2020-03-27] MEDS: Ondansetron 4 MG/2 ML SDV IVPUSH SCH ×4 (00:51→18:05)
[2020-03-27] MEDS: PROMETHAZINE PLO TOP SCH ×5 (04:03→20:50)
[2020-03-27] MEDS: Alum Hydrox/Mag Hydrox/Simeth 30 ML, Lidocaine 2% 15 ML PO SCH ×6 (06:00→23:29)
[2020-03-27] MEDS: Sodium Chloride 0.9% 1,000 ML IV SCH ×3 (06:06→23:24)
[2020-03-27] MEDS: Glycopyrrolate 15.6 MCG Cap.W.Dev Kit of 6 IH SCH ×2 (08:06→20:44)
[2020-03-27 08:22] LABS: ANION GAP 16.6 mmol/L (5-15); CHLORIDE,CL 100 mmol/L (98-115); SODIUM,NA 137 mmol/L (136-145)
[2020-03-27] MEDS: Enoxaparin 100 MG/1 ML Syringe SUBCUT SCH (12:03)
[2020-03-27] MEDS: Metoclopramide 10 MG/2 ML SDV IVPUSH SCH ×2 (16:16→20:40)
--- NOTE | 2020-03-27 20:00 | PN ---
03/27/2020 PATIENT NAME: JOSÉ ANTONIO BLANCAS HISTORY OF PRESENT ILLNESS: This is a 74-year-old male who was admitted through the emergency room on 03/25/2020. He had woken up the morning prior with nausea and dry heaves that lasted through the night. The patient did have two emesis in the emergency room. Gastroccult was positive. He also complains of some "tummy pain." He has been treated with scheduled Phenergan PLO gel topically alternating with Zofran 8 mg every 8 hours. He also received the GI cocktail every 8 hours and he is using Tums at his bedside. The patient has a very complicated past medical history and recent past medical history as well. I will refer you to the progress note from 03/26/2020, where I summarized them in completion. The patient reports that his tummy pain has improved from 6/10 yesterday to 3/10 today. He feels less nauseated now that the medications for nausea on a scheduled basis. He is very weak due to the fact that he is status post coronary artery bypass grafting x4 on 03/04/2020. Physical Therapy was consulted yesterday. They will continue to work with him throughout his hospitalization. The patient is receiving IV fluid at 125 mL/h. He does not have any evidence of congestive heart failure. He has had a couple of episodes of atrial fibrillation, however, it is now in sinus rhythm with a rate of 74 with no ectopics. He is monitored per telemetry. The patient and his family were concerned yesterday that the nausea may be related to a gallbladder issue. They also reported he had three kailey like stools the day prior to his admission. Amylase and lipase were both normal. He is going to have an abdominal ultrasound on 03/29/2020. He is also going to have an upper GI endoscopy with Dr. Jorgito Ruiz in this facility on 03/30/2020. Yesterday afternoon, he had chest pain. EKG showed no acute changes. His troponin at that time was 0.08. Later last evening, his troponin was 0.09, and today, his troponin was 0.10. The remainder of his lab is stable. His hemoglobin has been somewhat low with an admission hemoglobin of 12.9, which trended down after IV hydration to 10.3 and continues to be stable at 10.3. He did have a UA yesterday that was negative. Glucose this morning was 167. Anion gap is 16.6. PHYSICAL EXAMINATION: VITAL SIGNS: Temp is 98.2, pulse 70, respirations 20, blood pressure 139/80, O2 saturation is 96% on 2 L of oxygen. His weight is down four points from admission at 176. SKIN: Pale, warm, and dry. CARDIAC: Reveals S1, S2 to be normal. Rate and rhythm regular. No murmur, click, or gallop is auscultated. LUNGS: Clear without rales, wheezes, or rhonchi. He does have a midsternal incision which is clear and healing well without erythema, edema, or drainage. ABDOMEN: Soft, somewhat tender in the epigastric area. No masses are palpated. Bowel sounds are present in all 4 quadrants. EXTREMITIES: There is no pedal edema. He does have 2 vein harvest incision sites on the medial aspect of his left lower extremity, which are healing without erythema, edema, or drainage. IMPRESSION: 1. Nausea and vomiting. This is improving. It is much better now that we have scheduled the ondansetron alternating with the Phenergan PLO and scheduled the gastrointestinal cocktail as well. He is using Tums as well. 2. Gastrointestinal bleeding with positive Gastroccult. He has not had any more bloody emesis. He is scheduled for gastroscopy with Dr. Jorgito Ruiz on 03/30/2020 in this facility. He is on gastrointestinal protection with Protonix 40 mg IV daily. 3. Dehydration, improved with IV fluids. We will continue the IV fluids. 4. Abdominal pain. He is scheduled for an abdominal ultrasound on 03/29/2020. The abdominal pain has improved from a 03/31 to 12/29. 5. Recent coronary artery bypass grafting x4 on 03/04/2020, he seems to be doing well from a cardiac standpoint. He did have chest pain yesterday and has elevated troponins. I did consult with [facility] and spoke to Dr. Larios. She did not advise transfer. She advised me to career placement services counselor the patient that he is going to have some chest pain since she has had open heart surgery. She also was not concerned about the elevated troponins at this time. 6. Diabetes mellitus, stable. 7. Chronic obstructive pulmonary disease, stable. He is on oxygen. 8. Neurogenic bladder. He does have an indwelling Macrthur catheter. His urinalysis on admission was negative for urinary tract infection. 9. Depression and anxiety. He does take diazepam and Seroquel. We did schedule IV diazepam as needed. 10.History of pulmonary embolism, on Eliquis at home. This was changed to subcutaneous Lovenox due to his nausea. 11.Hypothyroidism, on replacement. 12.Deconditioning. Physical Therapy did consult with him on Sunday. They will continue to work with him. The patient may need to continue in swing bed care after his acute problems are addressed. 13.Atrial fibrillation. He is in sinus rhythm at this time. We will continue to monitor him per telemetry. I did request a consultation from internal medicine physician, Dr. Camila Bear, just to see if she had any further suggestions or recommendations for the care of this complicated gentleman yesterday. She did not have any further recommendations. She did see the patient yesterday afternoon when he had chest pain in my absence. She ordered labs and reviewed them as well. Today, when I spoke to her on the phone to update her on the patient's condition, she did recommend possibly a gastric emptying study on the patient due to his diabetes with a risk of gastroparesis. I believe this is a valid concern. He may also benefit from the use of Reglan as a prokinetic for the GI tract. /[id number]/MODL
[2020-03-27] MEDS: traZODone 50 MG Tab PO SCH (20:48)
[2020-03-28] MEDS: Ondansetron 4 MG/2 ML SDV IVPUSH SCH ×4 (00:50→18:20)
[2020-03-28] MEDS: PROMETHAZINE PLO TOP SCH ×4 (03:11→20:59)
[2020-03-28] MEDS: Alum Hydrox/Mag Hydrox/Simeth 30 ML, Lidocaine 2% 15 ML PO SCH ×6 (06:12→23:39)
[2020-03-28] MEDS: Sodium Chloride 0.9% 1,000 ML IV SCH ×3 (07:30→23:51)
[2020-03-28 08:51] LABS: ANION GAP 15.1 mmol/L (5-15); CHLORIDE,CL 99 mmol/L (98-115); SODIUM,NA 137 mmol/L (136-145)
[2020-03-28] MEDS: Glycopyrrolate 15.6 MCG Cap.W.Dev Kit of 6 IH SCH ×2 (09:00→20:55)
[2020-03-28] MEDS: Metoclopramide 10 MG/2 ML SDV IVPUSH SCH ×4 (09:08→21:04)
[2020-03-28] MEDS: Pantoprazole 40 MG Vial IVPUSH SCH ×2 (11:51→23:42)
[2020-03-28] MEDS: Enoxaparin 100 MG/1 ML Syringe SUBCUT SCH (11:59)
--- NOTE | 2020-03-28 12:45 | PN ---
03/28/2020 PATIENT NAME: JOSÉ ANTONIO BLANCAS HISTORY OF PRESENT ILLNESS: This is a 74-year-old male who was admitted through the emergency room on March 25. He had woken up in the morning with nausea and dry heaves. The patient has a GI bleed, evident by a positive Gastroccult. He has been treated with topical Phenergan PLO gel as well as Zofran 8 mg IV every 8 hours. He is receiving a GI cocktail every 8 hours as well and is using Tums at his bedside. These medications were initially scheduled on a p.r.n. basis, but since we have put them on a scheduled basis, the patient's symptoms have gotten better. We did start him on Reglan yesterday as a prokinetic for the GI tract and this has seemed to help him as well. When I discussed the case with Dr. Camila Bear yesterday, she suggested possibly getting a gastric emptying test to see if he possibly has been diabetic related gastroparesis. The patient is scheduled for an abdominal ultrasound on Sunday, March 29, as well as a gastroscope on March 30. The patient has a recent history of coronary artery bypass graft x4 on 03/04/2020. He did have some initial postop atrial fibrillation and did have two episodes of atrial fibrillation here, however, now has stayed in sinus rhythm with a rate of 60 to 80 and no ectopic. He has had weakness due to the fact that he is deconditioned from the surgery. He has had physical therapy consultation. They will continue working with him through his hospitalization. The patient is sleeping at the time that I am in his room, but get some history and progress update from his . The patient is receiving IV fluids at 125 mL/h. He does not have any evidence of congestive heart failure. He is continuously monitored for telemetry. The patient and his family expressed concern a couple of days ago about a gallbladder issue may be causing the nausea. Amylase and lipase were both normal and his liver function tests have been normal as well. We will get the abdominal ultrasound and see if there is any gallbladder wall thickening or cholelithiasis. He may need to have a HIDA scan as well. They well know that if the gallbladder is dysfunctional, he will have to have it surgically removed. He is in no shape to have that at this time. His today communicated a concern from one of their family members in regard to some sort of duct blockage. I did explain to her that there are no lab work or physical findings to be suspicious of that at this time. afternoon as above, the patient had chest pain. He did have serial troponins which were elevated. His baseline troponin was 0.07. This went up to 0.08 and then 0.09 and then 0.10 two days ago. This morning, his troponin is 0.09. I did consult with Cardiology yesterday in regard to the chest pain. I talked to Dr. Larios. She did not advise transfer. She communicated the fact that some chest pain post-coronary artery bypass grafting is expected and that the troponins are not worrisome at this time. LABORATORY DATA: Lab work from today. His hemoglobin is a little bit improved. Admission hemoglobin was 12.9. After IV fluids it did go down to 10.3 and remained at 10.3 for 2 days. Today his hemoglobin is 10.5. The remainder of the CBC looks acceptable. Chemistries, sodium is normal, potassium is normal at 3.5. Anion gap is 15.1. BUN and creatinine are normal at 7 and 0.96. His creatinine was elevated on admission secondary to dehydration. Glucose readings have been stable, even though the patient is not eating much. Glucose was 118 this morning. His calcium is low at 8.4. I suspect that this is due to hypoalbuminemia. The patient does have an albumin of 2.76, and this is nutritionally related. The patient has a history of a neurogenic bladder and does catheterize himself at home several times a day. We did a UA on admission which did not show evidence of a urinary tract infection. PHYSICAL EXAMINATION: VITAL SIGNS: Temp is 98.1, pulse 83, respirations 20, blood pressure 129/81, O2 saturation is 95% on 2 L of oxygen. GENERAL: The patient is sleeping at the time of my exam. He does appear comfortable. CARDIAC: Reveals S1, S2 to be normal. Rate and rhythm are regular. No murmur, click, or gallop is auscultated. LUNGS: Clear without rales, wheezes, or rhonchi. ABDOMEN: Soft with bowel sounds present. No pedal edema. He does have a midsternal incision that is healing without signs of erythema, edema, or drainage. He also has two vein grafting harvest sites on the medial aspect of his left lower extremity, which are healing well. IMPRESSION: 1. Nausea and vomiting. This does seem to be improving. It is much better now that we have scheduled the ondansetron alternating with Phenergan PLO as well as a scheduled gastrointestinal cocktail. He is using Tums as well. We did start Reglan yesterday 10 mg IV q.i.d. as a prokinetic for the gastrointestinal tract. He is scheduled for an abdominal ultrasound tomorrow. The patient is diabetic and possibly has some gastroparesis. We will order a gastric emptying test as well. 2. Gastrointestinal bleeding with positive Gastroccult. I suspect this is secondary to the fact that he was not on any gastrointestinal prophylaxis with his recent medical history. He is now on Protonix 40 mg IV daily. He is scheduled for gastroscopy with Dr. Jorgito Ruiz on March 30, 2020, in this facility. 3. Dehydration. This does seem to be improved. His renal function has improved and was most likely elevated due to the dehydration. We will continue IV fluids. 4. Abdominal pain. This has improved over the course of the last couple of days. 5. Recent coronary artery bypass grafting on 03/04/2020. He is doing well from a cardiac standpoint. He did have some chest pain and did have elevated troponins. I did consult with Cardiology in [place] and they advised no transfer at this time. I will schedule an echocardiogram in this facility in the near future when it is available. 6. Diabetes mellitus, stable. 7. Chronic obstructive pulmonary disease, stable. He continues on oxygen at 2 L continuously. 8. Neurogenic bladder. He catheterizes himself several times a day at home. He does have an indwelling Mcarthur catheter. His urinalysis on admission was negative for urinary tract infection. 9. Depression and anxiety. At home, he is on diazepam and Seroquel. He is on IV diazepam on a scheduled basis and seems to be tolerating this well. 10.History of pulmonary embolism, previously on Eliquis at home. This was changed to subcu Lovenox due to his nausea. 11.Hypothyroidism, on replacement. 12.Deconditioning. Physical Therapy was consulted. They will continue to work with him. After his acute care problems are addressed, he may need swing bed for continued work with Physical Therapy due to his deconditioning. 13.Atrial fibrillation. He is in sinus rhythm at this time. He is anticoagulated. We will continue to monitor him per telemetry. /[id number]/MODL
[2020-03-28] MEDS: traZODone 50 MG Tab PO SCH (20:58)
[2020-03-29] MEDS: PROMETHAZINE PLO TOP SCH ×4 (03:45→20:42)
[2020-03-29] MEDS: Ondansetron 4 MG/2 ML SDV IVPUSH SCH ×4 (06:05→18:04)
[2020-03-29] MEDS: Alum Hydrox/Mag Hydrox/Simeth 30 ML, Lidocaine 2% 15 ML PO SCH ×6 (06:14→23:58)
[2020-03-29] MEDS: Sodium Chloride 0.9% 1,000 ML IV SCH ×2 (08:06→17:32)
[2020-03-29] MEDS: Glycopyrrolate 15.6 MCG Cap.W.Dev Kit of 6 IH SCH ×2 (08:31→20:43)
[2020-03-29 08:53] LABS: ANION GAP 13.3 mmol/L (5-15); CHLORIDE,CL 101 mmol/L (98-115); SODIUM,NA 137 mmol/L (136-145)
[2020-03-29] MEDS: Metoclopramide 10 MG/2 ML SDV IVPUSH SCH ×4 (09:23→20:42)
[2020-03-29] MEDS: Pantoprazole 40 MG Vial IVPUSH SCH ×2 (11:49→23:58)
[2020-03-29] MEDS: Enoxaparin 100 MG/1 ML Syringe SUBCUT SCH (11:51)
--- NOTE | 2020-03-29 13:45 | US ---
[id number] US/US Abdomen Complete EXAM: COMPLETE ABDOMINAL ULTRASOUND INDICATION: ABDOMINAL PAIN/NAUSEA. COMPARISON: None. DISCUSSION: There is moderate fatty infiltration of liver. The gallbladder is normal in appearance without wall thickening, cholelithiasis or pericholecystic fluid. The common bile duct is normal in diameter. The visible portions of the pancreas are unremarkable. The abdominal aorta is normal in caliber. The kidneys are normal in size and echotexture without hydronephrosis or focal mass identified. The IVC is patent. The spleen is normal in size and echotexture. No free fluid was identified in the abdomen. Partially bilateral pleural effusions. IMPRESSION: 1. Moderate fatty infiltration of the liver. 2. No acute findings. Zac Fried MD 03/29/20 [id number] Thank you for allowing us to participate in the care of your patient.
--- NOTE | 2020-03-29 16:01 | PN ---
03/29/2020 PATIENT NAME: JOSÉ ANTONIO BLANCAS HISTORY OF PRESENT ILLNESS: This is a 74-year-old male who was admitted to the emergency room on March 25. He woke up in the morning with nausea and dry heaves. The patient was found to have a GI bleed. He has been treated with topical Phenergan PLO gel as well as Zofran IV. In addition to these two medications, he has been given an oral GI cocktail every 8 hours. He is also using Tums on an as-needed basis. We did start him on Reglan 2 days ago as a prokinetic for the GI tract. This seems to have really helped his nausea as well as his abdominal pain. When he was admitted, he complained of abdominal pain 6/10. On Sunday, it was still 3/10. Yesterday, he was not awake for me to interview him. Today, he says he does not have any abdominal pain at all. He is scheduled for an abdominal ultrasound today. He is also scheduled for an upper GI endoscopy on March 30. Dr. Camila Bear was consulted and suggested possibly getting a gastric emptying test to see if his GI issues could have been related possibly due to gastroparesis. We did try to schedule this test for tomorrow, however, his gastroscopy will not be able to be scheduled until 11 a.m., so then the gastric emptying test would not be able to be scheduled until approximately 1 o'clock. The test can take between 2 and 4 hours. I actually had them cancelled the test at this time. I did discuss it with the patient's and she was agreeable with this. The patient has a recent history of CABG x4 on March 04, 2020. He did have some initial postop atrial fibrillation and had two episodes of atrial fibrillation here. He is now in normal sinus rhythm with a rate of 70 to 90 with no ectopics. He is scheduled for an echocardiogram on March. He has had considerable weakness and deconditioning due to the fact that he had open-heart surgery and now has been hospitalized for several days. He has been evaluated by Physical Therapy and they will continue to work with him through his hospitalization. I suspect the patient may need some swing bed care following his acute care stay. The patient is receiving IV fluids at 125 mL an hour. This is 0.9% normal saline. He does not have any evidence of congestive heart failure. He is continuously monitored for telemetry. The patient does have diabetes mellitus and has not received any of his diabetic medications while he has been here. His blood sugars have remained quite stable. Glucose readings have ranged between 118 and 167 over the course of the last 3 days. The patient did have some chest pain on Sunday, March 26, 2020. He did have elevated troponins, albeit very slightly elevated. Cardiology at [place] was consulted, and did not advise transfer. The patient is expected to have some postop chest pain due to the fact that he has had open-heart surgery. The patient has a history of neurogenic bladder and does catheterized himself several times a day at home. We did the UA on admission which was clear for UTI. He does have an indwelling Mcarthur catheter at this time. CORRECTION PERTINENT LAB DATA: CBC shows a hemoglobin of 10.0. His hemoglobin yesterday was 10.5. It has ranged between 10 and 10.5. His admission hemoglobin was 12.9, however, he was dehydrated at that time. BUN and creatinine are normal at 5 and 0.94. He did have an elevated creatinine on admission and this has improved with IV hydration. Electrolytes are normal with the exception of a low calcium. He does have a low albumin which is 2.63. Calcium is 8.0, when corrected to the albumin, it is 9.1, which is normal. PHYSICAL EXAMINATION: VITAL SIGNS: Temp is 97.8, pulse 76, respirations 20, blood pressure 141/82, O2 saturation is 93% on 1.5 L of oxygen. SKIN: Warm and dry to touch. Color somewhat pale. CARDIAC: Reveals S1, S2 to be normal. Rate and rhythm are regular. No murmur, click, or gallop auscultated. LUNGS: Auscultated and found to have some wheezing. The patient does have a history of COPD. He is in no acute respiratory distress. There is a midsternal sternotomy incision, which is clear of erythema, edema, or drainage. He also has medial to medial lower leg vein harvest incisions, which are clear without erythema, edema, or drainage. ABDOMEN: Soft, nontender. Bowel sounds present in all four quadrants. There is no abdominal tenderness or masses appreciated. EXTREMITIES: There is no pedal edema. IMPRESSION: 1. Nausea and vomiting. This is improving. His abdominal pain has improved too. We changed his antiemetic regimen from p.r.n. to a scheduled regimen and he has done well with this. He is using a gastrointestinal cocktail and Tums as well. He is scheduled for an abdominal ultrasound today, which will be performed at 1:30 p.m. Results pending. 2. Gastrointestinal bleeding with positive Gastroccult. He has not had any additional bloody emesis. He is scheduled for a gastroscopy with Dr. Jorgito Ruiz on 03/30/2020 in this facility. He is on gastrointestinal protection with Protonix 40 mg IV daily. 3. Dehydration, improved. We will continue the IV fluids since his oral intake is still substandard. 4. Abdominal pain. This has improved. He now complains of 0/10 abdominal pain. 5. Recent coronary artery bypass grafting x4 on 03/04/2020. He is doing well from a cardiac standpoint. Chest pain was worked up with EKG, which showed no changes and mildly elevated troponins. [place] materials planning manager, Dr. Larios, was consulted via telephone on Sunday, March 27, 2020. She did not advise transfer. 6. Diabetes mellitus, stable. 7. Chronic obstructive pulmonary disease, stable. He is on continuous oxygen. 8. Neurogenic bladder. He does have an indwelling Mcarthur catheter. Urinalysis on admission was negative for urinary tract infection. 9. Depression and anxiety. He is on scheduled diazepam. At home, he takes diazepam as well as Seroquel. 10.History of pulmonary embolism, on Eliquis at home. This was changed to subcutaneous Lovenox due to his nausea. 11.Hypothyroidism, on replacement. 12.Deconditioning. Physical Therapy will continue to work with him during his acute stay and may need further physical therapy with the swing bed. 13.Atrial fibrillation. He has had several episodes of atrial fibrillation since his surgery, however, he is in sinus rhythm at this time, and he is anticoagulated. At this time, we will not make any changes to his medication regimen. Once his oral intake improves, we will attempt to add in his home medications. The patient is quite anxious to go home. However, I have explained to him the importance of him getting better to the point where he is able to function at home and not have to return to the hospital and the goal would be to optimize his physical condition, so that is a possibility. He does verbalize understanding at this time. /[id number]/MODL
--- NOTE | 2020-03-29 16:01 | PN ---
03/29/2020 PATIENT NAME: JOSÉ ANTONIO BLANCAS HISTORY OF PRESENT ILLNESS: The patient did have a complete abdominal ultrasound performed this afternoon. Findings were; there is moderate fatty infiltration of the liver. The gallbladder is normal in appearance without wall thickening, cholelithiasis, or cholecystic fluid. Common bile duct is normal in diameter. Visible portions of the pancreas were unremarkable. Abdominal aorta is normal in caliber. The kidneys are normal in size and echotexture without hydronephrosis or focal mass identified. The inferior vena cava is patent. The spleen is normal in size and echotexture. No free fluid was identified in the abdomen. He does have partial bilateral pleural effusions. FINAL IMPRESSION: 1. Moderate fatty infiltration of the liver. 2. No acute findings. The report was communicated to the patient as well as his , the patient's sister, and the patient's [id number]. The patient does have an upper GI endoscopy scheduled for tomorrow with Dr. Ruiz in this facility at 11 a.m. I was notified by Pharmacy regarding an interaction, any warning with the concomitant use of metoclopramide, which is Reglan and promethazine, which is in the PLO that we are using topically. The patient is doing so well with the concomitant use, and we do not plan to use it on a long-term basis. He has improved with the nausea as well as the abdominal pain with the use of both. I do believe the benefits outweigh the risk at this time. /[id number]/MODL
[2020-03-29] MEDS: traZODone 50 MG Tab PO SCH (20:43)
[2020-03-30] MEDS: Ondansetron 4 MG/2 ML SDV IVPUSH SCH ×4 (01:39→18:37)
[2020-03-30] MEDS: Sodium Chloride 0.9% 1,000 ML IV SCH ×3 (01:40→16:46)
[2020-03-30] MEDS: PROMETHAZINE PLO TOP SCH ×4 (03:01→20:55)
[2020-03-30] MEDS: Alum Hydrox/Mag Hydrox/Simeth 30 ML, Lidocaine 2% 15 ML PO SCH ×4 (06:33→14:56)
[2020-03-30] MEDS: Glycopyrrolate 15.6 MCG Cap.W.Dev Kit of 6 IH SCH ×2 (08:16→20:53)
[2020-03-30] MEDS ORDERED: Midazolam 1 MG/ML 2 ML SDV ONE (08:58)
[2020-03-30] MEDS ORDERED: Propofol 200 MG/20 ML SDV ONE (08:58)
[2020-03-30] MEDS: Metoclopramide 10 MG/2 ML SDV IVPUSH SCH ×4 (09:06→20:57)
[2020-03-30] MEDS ORDERED: Lidocaine 2% 100 MG/5 ML Syringe ONE (10:18)
--- NOTE | 2020-03-30 10:57 | PCM.SURGPN ---
- General Info Date of Service: 03/30/20 - Review of Systems Systems Review Comment:: 74-year-old male currently hospitalized 3 weeks after coronary artery bypass surgery for nausea and vomiting. Patient states that symptoms are profound and he is unable to even keep water down. He also notes upper abdominal pain. Recent ultrasound was unremarkable. Patient also had signs of GI bleed with positive Hemoccult. Upper endoscopy requested and will be performed today. Patient is medically stable to proceed with upper endoscopy today. He is on Lovenox. I have discussed the proposed upper endoscopy with the patient. Creased risk of bleeding because of anticoagulation reviewed. He agrees to proceed. - Patient Data Vitals - Most Recent: Last Vital Signs Temp 97.9 F 03/30/20 06:03 Pulse 76 03/30/20 08:16 Resp 20 03/30/20 06:03 BP 131/80 03/30/20 06:03 Pulse Ox 93 L 03/30/20 06:03 Weight - Most Recent: 79.832 kg I&O - Last 24 Hours: Intake & Output 03/29/20 03/30/20 03/30/20 22:59 06:59 14:59 Intake Total 1213 1014 Output Total 1300 1000 Balance -87 14 Alfredo Results Last 24 Hrs: Microbiology 03/29/20 12:40 Stool Occult Blood (ALFREDO) - Final Stool / Feces Med Orders - Current: Current Medications Albuterol (Ventolin Hfa) 0 gm INH Q4H PRN PRN Reason: shortness of breath/wheezing Calcium Carbonate/Glycine (Tums) 1,000 mg PO QID PRN PRN Reason: Indigestion Last Admin: 03/26/20 15:41 Dose: 1,000 mg Al Hydroxide/Mg Hydroxide 30 (ml/ Lidocaine HCl 15 ml) 0 ml PO TID@0700,1500, 2300 [facility] Last Admin: 03/30/20 06:33 Dose: Not Given Diazepam (Valium) 2.5 mg IVPUSH Q6H [facility] Last Admin: 03/30/20 06:31 Dose: 2.5 mg Enoxaparin Sodium (Lovenox) 80 mg SUBCUT Q24H [facility] Last Admin: 03/29/20 11:51 Dose: 80 mg Glycopyrrolate (Seebri Neohaler) 15.6 mcg IH BIDRT [facility] Last Admin: 03/30/20 08:16 Dose: 1 inhalation Sodium Chloride (Normal Saline) 1,000 mls @ 125 mls/hr IV ASDIRECTED [facility] Last Admin: 03/30/20 09:52 Dose: 125 mls/hr Metoclopramide HCl (Reglan) 10 mg IVPUSH QID [facility] Last Admin: 03/30/20 09:06 Dose: 10 mg Promethazine Plo Gel (25mg/0.4ml) 1 each TOP Q6H [facility] Last Admin: 03/30/20 09:05 Dose: 1 each Ondansetron HCl (Zofran) 8 mg IVPUSH Q6H [facility] Last Admin: 03/30/20 06:30 Dose: 8 mg Pantoprazole Sodium (Protonix Iv) 40 mg IVPUSH Q12H [facility] Last Admin: 03/29/20 23:58 Dose: 40 mg Sodium Chloride (Saline Flush) 10 ml FLUSH Q8HR PRN PRN Reason: keep vein open Last Admin: 03/25/20 09:16 Dose: 10 ml Trazodone HCl (Trazodone) 100 mg PO 2100 [facility] Last Admin: 03/29/20 20:43 Dose: 100 mg Discontinued Medications Al Hydroxide/Mg Hydroxide 30 (ml/ Lidocaine HCl 15 ml) 0 ml PO TID PRN PRN Reason: Nausea/Vomiting Stop: 03/25/20 16:19 Al Hydroxide/Mg Hydroxide 30 (ml/ Lidocaine HCl 15 ml) 0 ml PO TID PRN PRN Reason: Nausea Last Admin: 03/26/20 09:04 Dose: 45 ml Diazepam (Valium) 5 mg IVPUSH Q8H PRN PRN Reason: Anxiety Diazepam (Valium) 5 mg IVPUSH Q8H PRN PRN Reason: Anxiety Last Admin: 03/26/20 12:31 Dose: 5 mg Glycopyrrolate (Seebri Neohaler) 0 mcg IH BIDRT [facility] Last Admin: 03/26/20 09:20 Dose: Not Given Sodium Chloride (Normal Saline) 1,000 mls @ 999 mls/hr IV .BOLUS ONE Stop: 03/25/20 07:43 Last Admin: 03/25/20 06:57 Dose: 999 mls/hr Sodium Chloride (Normal Saline) 1,000 mls @ 999 mls/hr IV .BOLUS ONE Stop: 03/25/20 09:39 Last Admin: 03/25/20 09:18 Dose: 999 mls/hr Ketorolac Tromethamine (Toradol) 30 mg IVPUSH ONETIME ONE Stop: 03/25/20 07:55 Last Admin: 03/25/20 07:56 Dose: 30 mg Ketorolac Tromethamine (Toradol) Confirm Administered Dose 30 mg .ROUTE .STK- MED ONE Stop: 03/25/20 07:55 Last Admin: 03/25/20 08:01 Dose: Not Given Metoclopramide HCl (Reglan) 10 mg IVPUSH ONETIME ONE Stop: 03/25/20 09:31 Last Admin: 03/25/20 09:59 Dose: 10 mg Midazolam HCl (Versed 1 Mg/Ml) Confirm Administered Dose 2 mg .ROUTE .STK-MED ONE Stop: 03/30/20 08:59 Promethazine Plo Gel (25mg/0.4ml) 1 each TOP Q6H PRN PRN Reason: Nausea/Vomiting Last Admin: 03/26/20 09:03 Dose: 1 each Ondansetron HCl (Zofran) 4 mg IVPUSH ONETIME ONE Stop: 03/25/20 06:44 Last Admin: 03/25/20 06:56 Dose: 4 mg Ondansetron HCl (Zofran) 4 mg IVPUSH ONETIME ONE Stop: 03/25/20 09:10 Last Admin: 03/25/20 09:13 Dose: 4 mg Ondansetron HCl (Zofran) 8 mg IV Q6H PRN PRN Reason: Nausea/Vomiting Last Admin: 03/26/20 13:04 Dose: 8 mg Propofol (Diprivan 20 Ml) Confirm Administered Dose 200 mg .ROUTE .STK-MED ONE Stop: 03/30/20 08:59 Trazodone HCl (Trazodone) Confirm Administered Dose 100 mg .ROUTE .STK-MED ONE Stop: 03/26/20 22:48 Last Admin: 03/27/20 00:41 Dose: Not Given Sepsis Event Note - Evaluation Sepsis Screening Result: No Definite Risk - Focused Exam Vital Signs: Vital Signs Temp Pulse Resp BP Pulse Ox 03/30/20 08:16 76 03/30/20 06:03 97.9 F 84 20 131/80 93 L 03/30/20 03:00 98.9 F 71 20 143/85 H 92 L 03/29/20 22:54 98.7 F 59 L 20 125/67 91 L Date Exam was Performed: 03/30/20 Time Exam was Performed: 10:51 - Problem List Review Problem List Initiated/Reviewed/Updated: Yes - My Orders Last 24 Hours: Active Orders 24 hr Category Date Time Status Communication Order [RC] ONETIME Care 03/30/20 10:00 Active Verify Patient Consent Obtain [RC] ASDIRECTED Care 03/30/20 11:00 Active NPO [Nothing Per Oral Diet] [DIET] Diet 03/30/20 Breakfast Active Echo Comp wo Cont [US] Routine Exams 04/01/20 09:00 Ordered Medication Orders Albuterol (Ventolin Hfa) 0 gm INH Q4H PRN PRN Reason: shortness of breath/wheezing Calcium Carbonate/Glycine (Tums) 1,000 mg PO QID PRN PRN Reason: Indigestion Last Admin: 03/26/20 15:41 Dose: 1,000 mg Al Hydroxide/Mg Hydroxide 30 (ml/ Lidocaine HCl 15 ml) 0 ml PO TID@0700,1500, 2300 [facility] Last Admin: 03/30/20 06:33 Dose: Admin: 03/29/20 23:58 Dose: Admin: 03/29/20 15:10 Dose: 45 ml Admin: 03/29/20 06:14 Dose: Admin: 03/28/20 23:39 Dose: 45 ml Admin: 03/28/20 14:55 Dose: 45 ml Admin: 03/28/20 06:12 Dose: 45 ml Admin: 03/27/20 23:29 Dose: Not Given Admin: 03/27/20 14:53 Dose: 45 ml Admin: 03/27/20 06:00 Dose: 45 ml Admin: 03/26/20 22:40 Dose: 45 ml Admin: 03/26/20 15:41 Dose: 45 ml Diazepam (Valium) 2.5 mg IVPUSH Q6H [facility] Last Admin: 03/30/20 06:31 Dose: 2.5 mg Admin: 03/29/20 23:58 Dose: 2.5 mg Admin: 03/29/20 18:06 Dose: 2.5 mg Admin: 03/29/20 11:55 Dose: 2.5 mg Admin: 03/29/20 06:00 Dose: 2.5 mg Admin: 03/28/20 23:54 Dose: 2.5 mg Admin: 03/28/20 17:56 Dose: 2.5 mg Admin: 03/28/20 11:57 Dose: 2.5 mg Admin: 03/28/20 06:19 Dose: 2.5 mg Admin: 03/27/20 23:27 Dose: 2.5 mg Admin: 03/27/20 17:57 Dose: 2.5 mg Admin: 03/27/20 12:10 Dose: 2.5 mg Admin: 03/27/20 05:52 Dose: 2.5 mg Admin: 03/27/20 00:46 Dose: 2.5 mg Admin: 03/26/20 18:47 Dose: 2.5 mg Enoxaparin Sodium (Lovenox) 80 mg SUBCUT Q24H [facility] Last Admin: 03/29/20 11:51 Dose: 80 mg Admin: 03/28/20 11:59 Dose: 80 mg Admin: 03/27/20 12:03 Dose: 80 mg Admin: 03/26/20 12:04 Dose: 80 mg Admin: 03/25/20 12:38 Dose: 80 mg Glycopyrrolate (Seebri Neohaler) 15.6 mcg IH BIDRT [facility] Last Admin: 03/30/20 08:16 Dose: 1 inhalation Admin: 03/29/20 20:43 Dose: 1 inhalation Admin: 03/29/20 08:31 Dose: 1 inhalation Admin: 03/28/20 20:55 Dose: 1 inhalation Admin: 03/28/20 09:00 Dose: 1 inhalation Admin: 03/27/20 20:44 Dose: 1 inhalation Admin: 03/27/20 08:06 Dose: 1 inhalation Admin: 03/26/20 20:31 Dose: 1 inhalation Admin: 03/26/20 09:19 Dose: 1 inhalation Sodium Chloride (Normal Saline) 1,000 mls @ 125 mls/hr IV ASDIRECTED [facility] Last Admin: 03/30/20 09:52 Dose: 125 mls/hr Infusion: 03/30/20 09:40 Dose: 125 mls/hr Admin: 03/30/20 01:40 Dose: 125 mls/hr Infusion: 03/30/20 01:32 Dose: 125 mls/hr Admin: 03/29/20 17:32 Dose: 125 mls/hr Infusion: 03/29/20 16:06 Dose: 125 mls/hr Admin: 03/29/20 08:06 Dose: 125 mls/hr Infusion: 03/29/20 07:51 Dose: 125 mls/hr Admin: 03/28/20 23:51 Dose: 125 mls/hr Infusion: 03/28/20 23:48 Dose: 125 mls/hr Admin: 03/28/20 15:48 Dose: 125 mls/hr Infusion: 03/28/20 15:30 Dose: 125 mls/hr Admin: 03/28/20 07:30 Dose: 125 mls/hr Infusion: 03/28/20 07:24 Dose: 125 mls/hr Admin: 03/27/20 23:24 Dose: 125 mls/hr Infusion: 03/27/20 22:59 Dose: 125 mls/hr Admin: 03/27/20 14:59 Dose: 125 mls/hr Infusion: 03/27/20 14:06 Dose: 125 mls/hr Admin: 03/27/20 06:06 Dose: 125 mls/hr Infusion: 03/27/20 05:37 Dose: 125 mls/hr Admin: 03/26/20 21:37 Dose: 125 mls/hr Infusion: 03/26/20 21:15 Dose: 125 mls/hr Admin: 03/26/20 13:15 Dose: 125 mls/hr Infusion: 03/26/20 12:41 Dose: 125 mls/hr Admin: 03/26/20 04:41 Dose: 125 mls/hr Infusion: 03/26/20 04:33 Dose: 125 mls/hr Admin: 03/25/20 20:33 Dose: 125 mls/hr Infusion: 03/25/20 20:27 Dose: 125 mls/hr Admin: 03/25/20 12:27 Dose: 125 mls/hr Metoclopramide HCl (Reglan) 10 mg IVPUSH QID [facility] Last Admin: 03/30/20 09:06 Dose: 10 mg Admin: 03/29/20 20:42 Dose: 10 mg Admin: 03/29/20 17:33 Dose: 10 mg Admin: 03/29/20 13:43 Dose: 10 mg Admin: 03/29/20 09:23 Dose: 10 mg Admin: 03/28/20 21:04 Dose: 10 mg Admin: 03/28/20 17:40 Dose: 10 mg Admin: 03/28/20 13:32 Dose: 10 mg Admin: 03/28/20 09:08 Dose: 10 mg Admin: 03/27/20 20:40 Dose: 10 mg Admin: 03/27/20 16:16 Dose: 10 mg Promethazine Plo Gel (25mg/0.4ml) 1 each TOP Q6H [facility] Last Admin: 03/30/20 09:05 Dose: 1 each Admin: 03/30/20 03:01 Dose: Not Given Admin: 03/29/20 20:42 Dose: 1 each Admin: 03/29/20 15:11 Dose: 1 each Admin: 03/29/20 09:23 Dose: 1 each Admin: 03/29/20 03:45 Dose: Not Given Admin: 03/28/20 20:59 Dose: 1 each Admin: 03/28/20 15:04 Dose: 1 each Admin: 03/28/20 09:02 Dose: 1 each Admin: 03/28/20 03:11 Dose: 1 each Admin: 03/27/20 20:50 Dose: 1 each Admin: 03/27/20 14:57 Dose: 1 each Admin: 03/27/20 08:03 Dose: 1 each Admin: 03/27/20 04:07 Dose: 1 each Admin: 03/26/20 20:33 Dose: 1 each Admin: 03/26/20 15:40 Dose: 1 each Ondansetron HCl (Zofran) 8 mg IVPUSH Q6H [facility] Last Admin: 03/30/20 06:30 Dose: 8 mg Admin: 03/30/20 01:39 Dose: 8 mg Admin: 03/29/20 18:04 Dose: 8 mg Admin: 03/29/20 13:41 Dose: 8 mg Admin: 03/29/20 06:05 Dose: 8 mg Admin: 03/29/20 00:00 Dose: 8 mg Admin: 03/28/20 18:20 Dose: 8 mg Admin: 03/28/20 13:29 Dose: 8 mg Admin: 03/28/20 06:23 Dose: 8 mg Admin: 03/28/20 00:50 Dose: 8 mg Admin: 03/27/20 18:05 Dose: 8 mg Admin: 03/27/20 12:44 Dose: 8 mg Admin: 03/27/20 05:59 Dose: 8 mg Admin: 03/27/20 00:51 Dose: 8 mg Admin: 03/26/20 18:48 Dose: 8 mg Pantoprazole Sodium (Protonix Iv) 40 mg IVPUSH Q12H [facility] Last Admin: 03/29/20 23:58 Dose: 40 mg Admin: 03/29/20 11:49 Dose: 40 mg Admin: 03/28/20 23:42 Dose: 40 mg Admin: 03/28/20 11:51 Dose: 40 mg Admin: 03/27/20 23:18 Dose: 40 mg Admin: 03/27/20 11:57 Dose: 40 mg Admin: 03/27/20 00:36 Dose: 40 mg Admin: 03/26/20 12:04 Dose: 40 mg Admin: 03/25/20 23:50 Dose: 40 mg Admin: 03/25/20 12:26 Dose: 40 mg Sodium Chloride (Saline Flush) 10 ml FLUSH Q8HR PRN PRN Reason: keep vein open Last Admin: 03/25/20 09:16 Dose: 10 ml Admin: 03/25/20 07:01 Dose: 10 ml Trazodone HCl (Trazodone) 100 mg PO 2100 [facility] Last Admin: 03/29/20 20:43 Dose: 100 mg Admin: 03/28/20 20:58 Dose: 100 mg Admin: 03/27/20 20:48 Dose: 100 mg Admin: 03/26/20 22:47 Dose: 100 mg - Assessment Assessment (Free Text/Narrative):: Nausea and vomiting Upper abdominal pain GI bleed - Plan Plan (Free Text/Narrative):: EGD
[2020-03-30] MEDS ORDERED: Propofol 200 MG/20 ML SDV IV ONE (11:14)
--- NOTE | 2020-03-30 11:43 | PCM.OPNOTE ---
- General Post-Op/Procedure Note Date of Surgery/Procedure: 03/30/20 Operative Procedure(s): EGD with Biopsy Findings: Moderate Duodenitis with hyperemia but no visible ulcers or erosions Stable Hiatal Hernia without signs of obstruction or inflammation White patches on esophageal mucosa suggestive of possible fungal esophagitis Pre Op Diagnosis: GI bleed. Abdominal pain Post-Op Diagnosis: Hiatal Hernia. Duodenitis Anesthesia Technique: MAC Primary Surgeon: Jorgito Ruiz Pathology: Biopsies of Gastric Antrum to R/O H. pylori Biopsies of Esophageal mucosa to R/O Adri Esophagitis EBL in mLs: 2 Complications: None Condition: Good Free Text/Narrative:: Intake & Output 03/29/20 03/30/20 03/30/20 22:59 06:59 14:59 Intake Total 1213 1014 Output Total 1300 1000 Balance -87 14
[2020-03-30] MEDS: Pantoprazole 40 MG Vial IVPUSH SCH (12:10)
[2020-03-30] MEDS: Enoxaparin 100 MG/1 ML Syringe SUBCUT SCH (12:17)
--- NOTE | 2020-03-30 12:45 | OR ---
DATE OF SURGERY: 03/30/2020 SURGEON: Jorgito Ruiz MD PREOPERATIVE DIAGNOSIS: Gastrointestinal bleed, abdominal pain. POSTOPERATIVE DIAGNOSIS: Duodenitis, hiatal hernia. OPERATION PERFORMED: Esophagogastroduodenoscopy with biopsy. INDICATIONS FOR SURGERY: This 74-year-old male who is 3 weeks post coronary artery bypass, has developed symptoms of upper abdominal pain, nausea, vomiting, and evidence of some GI bleeding. He is referred for upper endoscopy. FINDINGS: No obstruction or ulceration is seen during today's exam. The patient did have a mild to moderate degree of duodenitis with some hyperemia diffusely noted in the 1st portion of the duodenum. The 2nd and 3rd portions appeared normal and no ulcerations or erosions were seen in this area. The lining of the gastric mucosa appeared normal. There was no hyperemia or ulcers seen. The patient does have a moderate-sized hiatal hernia, which does not appear acutely inflamed and shows no significant change from previous upper endoscopy. On the lining of the patient's mid and lower esophagus, there were multiple white patches on the mucosa suggestive of possible Adri esophagitis. DESCRIPTION OF PROCEDURE: The patient was taken to the operating room. He was given intravenous sedation and with him in the left lateral decubitus position, the gastroscope was advanced into the mouth via a mouth guard. The scope was carefully advanced into the oropharynx where examination appeared normal and then easily advanced into the esophagus and down through the stomach and duodenum, where examination to the 3rd portion was performed. Carefully, the duodenum has examined and the scope was then withdrawn back into the stomach. Full examination of the gastric mucosa was carried out including retroflexed examination of the fundus. Random biopsies of the antrum were taken to rule out H pylori because of the patient's symptoms. The scope was withdrawn back to the GE junction and esophagus, and biopsies of the mucosa of the esophagus were taken because of the possibility of Adri esophagitis. The scope was then removed and the patient was taken from the operating room in satisfactory condition. ESTIMATED BLOOD LOSS: 2 mL. COMPLICATIONS: None. PROGNOSIS: Good. /[id number]/MODL
--- NOTE | 2020-03-30 15:03 | PN ---
03/30/2020 PATIENT NAME: JOSÉ ANTONIO BLANCAS This is a 74-year-old male who has been hospitalized since 03/25/2020, with nausea and vomiting. He was found to have a positive Gastroccult as well as positive Hemoccult. He has been treated with Phenergan PLO gel as well as Zofran every 8 hours. He is receiving a GI cocktail as well. He is using Tums as well. We did put him on Reglan q.i.d. as a prokinetic and this seems to have been helpful as well. He did have an abdominal ultrasound yesterday which showed a moderate fatty infiltration of the liver with no acute findings. I did discuss the results with the patient as well as his . I was notified yesterday of the interaction between metoclopramide which is Reglan and promethazine. The benefits outweigh the risk at this time. This was documented in a progress note from yesterday afternoon. The patient did have an upper GI endoscopy with Dr. Jorgito Ruiz today, which showed a hiatal hernia, which was present back in 10/2019 when the patient had both a gastroscopy as well as a colonoscopy. There was no evidence of ulceration, which was actually surprising to me. He did have some white patches in the distal esophagus, which Dr. Ruiz thought perhaps was a candidal esophagitis. He did biopsy that. He also found that there was some duodenitis. He did take biopsies for H pylori. The patient has several other complex problems including a recent history of coronary artery bypass grafting on 03/04/2020. He has been stable on telemetry and normal sinus rhythm with a rate of 60-80 without ectopics. He is very weak due to the fact that he is postop. He has had a Physical Therapy consultation and they will continue to work with him. The patient still is not eating a lot orally and we have not been giving him any oral medications. He has been receiving IV fluids at 125 mL an hour. He does not have any evidence of congestive heart failure. However, he is scheduled for an echocardiogram on just to be sure that his cardiac function and valvular structures are intact. He did have some chest pain last Sunday and did have a mild elevation of his troponins. EKG was completely unchanged from previous. Cardiology was consulted, and transfer was not recommended. Recommendation was to reinforce to the patient the fact that he can expect some chest pain due to the fact that he is postop. 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 LABORATORY DATA: Significant lab data from today: His hemoglobin on admission was 12.7. It has trended downward with hydration. His hemoglobin today is 10. Comprehensive metabolic panel is stable. PHYSICAL EXAMINATION: VITAL SIGNS: Temp is 97.9, pulse 84, respirations 20, blood pressure 131/80, O2 saturation is 93% on 1.5 L of oxygen. SKIN: Warm and dry to touch, somewhat pale. CARDIAC: Reveals S1, S2 to be normal. Rate and rhythm are regular. No murmur, click, or gallop is auscultated. LUNGS: Clear without rales, wheezes, or rhonchi. ABDOMEN: Soft, nontender with bowel sounds present in all four quadrants. No pedal edema. He does have a midsternal incision that is healing without signs of erythema, edema, or drainage. He does have two vein grafting site on the distal aspect of his left lower extremity, which are healing. IMPRESSION: 1. Nausea and vomiting. This is improving with the medications we have him on which include Phenergan PLO alternating with ondansetron and a GI cocktail. He is using Tums. He is receiving Reglan 10 mg IV q.i.d. which has seemed to be beneficial. Abdominal ultrasound was basically inconclusive with no acute changes. The main concern there was cholelithiasis or gallbladder wall thickening, but this was not found. He does have moderate fatty infiltration of the liver. 2. Gastrointestinal bleeding with positive Gastroccult and Hemoccult. Initially, I felt that this may be related to the fact that he was not on any gastrointestinal prophylaxis with his recent medical history. He is now on Protonix 40 mg IV daily. Gastroscopy today was performed, which showed some duodenitis. There was a hiatal hernia. Possible esophageal candidiasis. Biopsies were taken of the distal esophagus and duodenum for H pylori. Pathology report is pending. 3. Dehydration. This has resolved. Renal function has improved. We will continue IV fluids. 4. Abdominal pain. This has improved over the course of the last few days. 5. Recent coronary artery bypass grafting, 03/04/2020. He is doing well. He is scheduled for an echocardiogram on 04/01/2020. 6. Diabetes mellitus, stable. 7. Chronic obstructive pulmonary disease, stable. He does continue on oxygen at 2 L continuously. 8. Neurogenic bladder. He catheterizes himself several times a day at home. He does have an indwelling Mcarthur catheter. UA was negative for urinary tract infection. 9. Depression and anxiety. At home, he is taking diazepam and Seroquel. He is on IV diazepam on a scheduled basis. 10.History of pulmonary embolism, previously on Eliquis at home. This was changed to subcutaneous Lovenox due to his nausea. 11.Hypothyroidism, on replacement. 12.Deconditioning. He will continue to work with Physical Therapy to strengthen him to the point that he may go home. I may entertain placing him in swing bed care tomorrow. 13.Atrial fibrillation. He did have a few episodes of this postoperatively and here as well, however, he has been in normal sinus rhythm without ectopic with a rate of 60 to 80. He will continue on telemetry continuously. I did discuss the findings of the gastroscopy with Dr. Ruiz. He was also going to review his findings with the patient and his family. Dr. Ruiz felt that maybe the slow GI leak was from the fact that he does have duodenitis and he is on anticoagulation. He did not feel that any further endoscope is needed to be done. He did not recommend a colonoscopy at this time. The patient does complain of some insomnia. I will order his trazodone 100 mg at bedtime. My biggest concern for this patient right now is getting him to eat and getting him stronger. He is anxious to go home; however, I am reluctant to do that at this time. We did talk about the earliest possible discharge date would be 04/02/2020, but this is only if the patient has improved to the point where he can function independently at home. /[id number]/MODL
[2020-03-30] MEDS ORDERED: Simethicone 80 MG Tab.Chew PO PRN (16:04)
[2020-03-30] MEDS ORDERED: hydrOXYzine HCl 50 MG/ML SDV IM PRN (16:06)
[2020-03-30] MEDS: Fluconazole/Normal Saline 400 MG in Premix Bag 1 BAG IV SCH (16:28)
[2020-03-30] MEDS: traZODone 50 MG Tab PO SCH (20:56)
[2020-03-30] MEDS ORDERED: traZODone 50 MG Tab PO SCH (21:00)
[2020-03-31] MEDS: Alum Hydrox/Mag Hydrox/Simeth 30 ML, Lidocaine 2% 15 ML PO SCH ×8 (00:05→23:53)
[2020-03-31] MEDS: Pantoprazole 40 MG Vial IVPUSH SCH ×3 (00:11→23:53)
[2020-03-31] MEDS: Ondansetron 4 MG/2 ML SDV IVPUSH SCH ×4 (00:14→18:08)
[2020-03-31] MEDS: Sodium Chloride 0.9% 1,000 ML IV SCH ×3 (02:45→21:00)
[2020-03-31] MEDS: PROMETHAZINE PLO TOP SCH ×4 (04:32→20:36)
[2020-03-31] MEDS: Glycopyrrolate 15.6 MCG Cap.W.Dev Kit of 6 IH SCH ×2 (07:31→20:28)
[2020-03-31] MEDS: Metoclopramide 10 MG/2 ML SDV IVPUSH SCH ×4 (08:31→20:29)
--- NOTE | 2020-03-31 09:04 | PCM.PN ---
- General Info Date of Service: 03/31/20 Admission Dx/Problem (Free Text): Admission Diagnosis/Problem Admission Diagnosis/Problem Nausea and vomiting - Review of Systems Systems Review Comment:: Sixto is being seen today on inpatient rounds. He was admitted on 03/25/2020 from the ER with nausea and vomiting. He has had a gallbladder U/S which was negative. He also had an upper GI endoscopy on 03/30 due to positive hemoccult as well as gastroccult. Upper GI endoscopy shows some duodenitis but no ulceration or bleeding. Dr. Ruiz did see some white patches in the esophagus suggestive of rashawn and he was started on fluconazole 400 mg IV daily. He was going to transition to swingbed yesterday afternoon but after his procedure he had nausea, vomiting and some mild abdominal distention and so he was continued to be inpatient status. He states this morning he is feeling much better and was able to eat his breakfast. He has not been able to eat an entire meal the whole time he has been here so that was encouraging for him. He refused his scheduled nausea medications this morning as he was not feeling nauseated. His home meds have been held due to the N/V. When I asked him if he wanted to restart some of them today he replied "no, lets just leave it alone for awhile". He denies any pain. He feels his abdominal distention has resolved. - Patient Data Vitals - Most Recent: Last Vital Signs Temp 98.0 F 03/31/20 06:44 Pulse 80 03/31/20 07:31 Resp 18 03/31/20 06:44 BP 141/87 H 03/31/20 06:44 Pulse Ox 96 03/31/20 07:31 Weight - Most Recent: 176 lb I&O - Last 24 Hours: Intake & Output 03/30/20 03/31/20 03/31/20 22:59 06:59 14:59 Intake Total 1459 1122 Output Total 1800 1200 Balance -341 -78 Med Orders - Current: Current Medications Albuterol (Ventolin Hfa) 0 gm INH Q4H PRN PRN Reason: shortness of breath/wheezing Calcium Carbonate/Glycine (Tums) 1,000 mg PO QID PRN PRN Reason: Indigestion Last Admin: 03/26/20 15:41 Dose: 1,000 mg Al Hydroxide/Mg Hydroxide 30 (ml/ Lidocaine HCl 15 ml) 0 ml PO TID@0700,1500, 2300 [facility] Last Admin: 03/31/20 06:26 Dose: 45 ml Diazepam (Valium) 2.5 mg IVPUSH Q6H [facility] Last Admin: 03/31/20 06:23 Dose: 2.5 mg Enoxaparin Sodium (Lovenox) 80 mg SUBCUT Q24H [facility] Last Admin: 03/30/20 12:17 Dose: 80 mg Glycopyrrolate (Seebri Neohaler) 15.6 mcg IH BIDRT [facility] Last Admin: 03/31/20 07:31 Dose: 1 inhalation Hydroxyzine HCl (Vistaril) 25 mg IM Q4H PRN PRN Reason: Nausea/Vomiting Last Admin: 03/30/20 16:38 Dose: 25 mg Sodium Chloride (Normal Saline) 1,000 mls @ 125 mls/hr IV ASDIRECTED [facility] Last Admin: 03/31/20 02:45 Dose: 125 mls/hr Fluconazole/Sodium Chloride (400 mg/ Premix) 200 mls @ 100 mls/hr IV Q24H [facility] Last Admin: 03/30/20 16:28 Dose: 100 mls/hr Metoclopramide HCl (Reglan) 10 mg IVPUSH QID [facility] Last Admin: 03/31/20 08:31 Dose: Not Given Promethazine Plo Gel (25mg/0.4ml) 1 each TOP Q6H [facility] Last Admin: 03/31/20 08:30 Dose: Not Given Ondansetron HCl (Zofran) 8 mg IVPUSH Q6H [facility] Last Admin: 03/31/20 06:29 Dose: 8 mg Pantoprazole Sodium (Protonix Iv) 40 mg IVPUSH Q12H [facility] Last Admin: 03/31/20 00:11 Dose: 40 mg Simethicone (Simethicone) 80 mg PO Q2H PRN PRN Reason: Nausea/Vomiting Last Admin: 03/30/20 16:20 Dose: 80 mg Sodium Chloride (Saline Flush) 10 ml FLUSH Q8HR PRN PRN Reason: keep vein open Last Admin: 03/25/20 09:16 Dose: 10 ml Trazodone HCl (Trazodone) 100 mg PO 2100 [facility] Last Admin: 03/30/20 20:56 Dose: 100 mg Discontinued Medications Al Hydroxide/Mg Hydroxide 30 (ml/ Lidocaine HCl 15 ml) 0 ml PO TID PRN PRN Reason: Nausea/Vomiting Stop: 03/25/20 16:19 Al Hydroxide/Mg Hydroxide 30 (ml/ Lidocaine HCl 15 ml) 0 ml PO TID PRN PRN Reason: Nausea Last Admin: 03/26/20 09:04 Dose: 45 ml Diazepam (Valium) 5 mg IVPUSH Q8H PRN PRN Reason: Anxiety Diazepam (Valium) 5 mg IVPUSH Q8H PRN PRN Reason: Anxiety Last Admin: 03/26/20 12:31 Dose: 5 mg Glycopyrrolate (Seebri Neohaler) 0 mcg IH BIDRT [facility] Last Admin: 03/26/20 09:20 Dose: Not Given Sodium Chloride (Normal Saline) 1,000 mls @ 999 mls/hr IV .BOLUS ONE Stop: 03/25/20 07:43 Last Admin: 03/25/20 06:57 Dose: 999 mls/hr Sodium Chloride (Normal Saline) 1,000 mls @ 999 mls/hr IV .BOLUS ONE Stop: 03/25/20 09:39 Last Admin: 03/25/20 09:18 Dose: 999 mls/hr Ketorolac Tromethamine (Toradol) 30 mg IVPUSH ONETIME ONE Stop: 03/25/20 07:55 Last Admin: 03/25/20 07:56 Dose: 30 mg Ketorolac Tromethamine (Toradol) Confirm Administered Dose 30 mg .ROUTE .STK- MED ONE Stop: 03/25/20 07:55 Last Admin: 03/25/20 08:01 Dose: Not Given Lidocaine HCl (Xylocaine 2%) Confirm Administered Dose 100 mg .ROUTE .STK-MED ONE Stop: 03/30/20 10:19 Last Admin: 03/30/20 16:16 Dose: Not Given Metoclopramide HCl (Reglan) 10 mg IVPUSH ONETIME ONE Stop: 03/25/20 09:31 Last Admin: 03/25/20 09:59 Dose: 10 mg Midazolam HCl (Versed 1 Mg/Ml) Confirm Administered Dose 2 mg .ROUTE .STK-MED ONE Stop: 03/30/20 08:59 Last Admin: 03/30/20 16:16 Dose: Not Given Promethazine Plo Gel (25mg/0.4ml) 1 each TOP Q6H PRN PRN Reason: Nausea/Vomiting Last Admin: 03/26/20 09:03 Dose: 1 each Ondansetron HCl (Zofran) 4 mg IVPUSH ONETIME ONE Stop: 03/25/20 06:44 Last Admin: 03/25/20 06:56 Dose: 4 mg Ondansetron HCl (Zofran) 4 mg IVPUSH ONETIME ONE Stop: 03/25/20 09:10 Last Admin: 03/25/20 09:13 Dose: 4 mg Ondansetron HCl (Zofran) 8 mg IV Q6H PRN PRN Reason: Nausea/Vomiting Last Admin: 03/26/20 13:04 Dose: 8 mg Propofol (Diprivan 20 Ml) Confirm Administered Dose 200 mg .ROUTE .STK-MED ONE Stop: 03/30/20 08:59 Last Admin: 03/30/20 16:15 Dose: Not Given Propofol (Diprivan 20 Ml) 50 mg IV .STK-MED ONE Stop: 03/30/20 11:15 Trazodone HCl (Trazodone) 100 mg PO 2100 [facility] Last Admin: 03/29/20 20:43 Dose: 100 mg Trazodone HCl (Trazodone) Confirm Administered Dose 100 mg .ROUTE .STK-MED ONE Stop: 03/26/20 22:48 Last Admin: 03/27/20 00:41 Dose: Not Given Trazodone HCl (Trazodone) 50 mg PO TID [facility] - Exam General: Alert, Oriented, Cooperative, No Acute Distress Lungs: Clear to Auscultation, Normal Respiratory Effort Cardiovascular: No Murmurs, Irregular Rhythm GI/Abdominal Exam: Normal Bowel Sounds, Soft, Non-Tender, No Organomegaly Extremities: Normal Inspection, No Pedal Edema Sepsis Event Note - Evaluation Sepsis Screening Result: No Definite Risk - Focused Exam Vital Signs: Vital Signs Temp Pulse Resp BP Pulse Ox Pulse Ox 03/31/20 07:31 80 96 03/31/20 07:30 96 03/31/20 06:44 98.0 F 85 18 141/87 H 93 L 03/31/20 00:00 98.6 F 79 20 124/80 94 L Date Exam was Performed: 03/31/20 Time Exam was Performed: 09:14 - Problem List Review Problem List Initiated/Reviewed/Updated: Yes - Assessment Assessment:: Nausea/vomiting CAD s/p CABG x 4 COPD Generalized abdominal pain Anxiety BPH Chronic back pain Depression Diabetes Mellitus, insulin dependent HTN Essential tramor Hyperlipidemia Hypothyroidism Insomina Neurogenic bladder with self catheterization Hx PE Recurrent UTI - Plan Plan:: Nausea/vomiting, improving, tolerated breakfast today, OK to hold scheduled antiemetics if no nausea. CAD s/p CABG x 4 on 03/04/2020 Site is healing nicely. COPD, continue inhalers and nebulizers. Generalized abdominal pain, improving. Anxiety, continue diazepam scheduled, may consider switching back to oral tomorrow. BPH Chronic back pain, no pain currently, tramadol on hold. Depression, meds on hold, may consider resuming tomorrow. Diabetes Mellitus, insulin dependent. Insulin on hold due to poor PO intake, will check BG"s twice and use sliding scale insulin to correct for BG's. Can consider restarting long acting insulin if PO intake improves. HTN, meds on hold, can consider resuming when better PO intake. BP controlled currently. Essential tremor Hyperlipidemia Hypothyroidism, holding levothyroxine, will resume with improve PO intake. Insomina. He has been using trazodone at bedtime. Continue. Neurogenic bladder with self catheterization, currently has gee in place. Will consider removal tomorrow. Hx PE, currently on enoxaparin due to N/V, can consider restart Xarelto with improved PO intake. Recurrent UTI, no evidence of UTI currently. Anticipate change to swingbed status on 04/01/2020.
[2020-03-31] MEDS: Enoxaparin 100 MG/1 ML Syringe SUBCUT SCH (11:32)
[2020-03-31] MEDS: Fluconazole/Normal Saline 400 MG in Premix Bag 1 BAG IV SCH (14:59)
[2020-03-31] MEDS: traZODone 50 MG Tab PO SCH (20:27)
[2020-04-01] MEDS: PROMETHAZINE PLO TOP SCH ×2 (03:55→08:45)
[2020-04-01] MEDS: Sodium Chloride 0.9% 1,000 ML IV SCH (05:05)
[2020-04-01] MEDS: Ondansetron 4 MG/2 ML SDV IVPUSH SCH ×2 (06:03)
[2020-04-01] MEDS: Alum Hydrox/Mag Hydrox/Simeth 30 ML, Lidocaine 2% 15 ML PO SCH ×2 (06:07)
[2020-04-01] MEDS: Glycopyrrolate 15.6 MCG Cap.W.Dev Kit of 6 IH SCH (08:00)
[2020-04-01] MEDS: Metoclopramide 10 MG/2 ML SDV IVPUSH SCH (09:16)
[2020-04-01 09:38] LABS: ANION GAP 11.4 mmol/L (5-15); CHLORIDE,CL 102 mmol/L (98-115); SODIUM,NA 138 mmol/L (136-145)
[2020-04-01] MEDS: Metoclopramide 10 MG Tab PO SCH ×2 (09:40→12:12)
[2020-04-01] MEDS ORDERED: Diazepam 5 MG Tab PO PRN (10:44)
[2020-04-01] MEDS ORDERED: Simethicone 80 MG Tab.Chew PO PRN (10:49)
[2020-04-01] MEDS ORDERED: Apixaban 5 MG Tab PO SCH (11:00)
[2020-04-01 16:08] VITALS: BP 142/85; PULSE 73
[2020-04-01] MEDS ORDERED: Metoprolol Tartrate 25 MG Tab PO SCH (21:00)
[2020-04-02] MEDS ORDERED: Pantoprazole 40 MG Tab.CR PO SCH (07:30)
[2020-04-02] MEDS ORDERED: Levothyroxine 25 MCG Tab PO SCH (07:30)
[2020-04-02] MEDS ORDERED: Levothyroxine 112 MCG Tab PO SCH (07:30)
[2020-04-02] MEDS ORDERED: Fluconazole 100 MG Tab PO SCH (09:00)
--- NOTE | 2020-04-02 20:02 | DISCH ---
HISTORY OF PRESENT ILLNESS: This is a 74-year-old male who was admitted to the hospital on 03/25/2020. He was admitted through the emergency room with nausea and vomiting. Throughout his hospital stay, he was treated with topical Phenergan PLO as well as Zofran and a GI cocktail. He also additionally received bedside Tums. He improved markedly after starting Reglan. He did have an upper GI endoscopy which showed duodenitis. Biopsies were taken for H pylori and they are pending. There was no ulceration which was quite surprising actually given the fact that he had positive Gastroccult as well as Hemoccult stools. Dr. Jorgito Ruiz performed the procedure and did note that he had some white patches in the distal aspect of his esophagus, which he suspected was an esophageal candidiasis. He did biopsy this too. The patient was started empirically on fluconazole 400 mg IV daily and will be discharged on oral fluconazole for one week. The patient had an abdominal ultrasound which was basically negative with the exception of a fatty infiltration of the liver. The patient had coronary artery bypass grafting x4 on 03/04/2020. The patient has had profound weakness after his surgery. Physical Therapy has evaluated him and really is not in favor of the patient going home. The patient states "come hell or high water, I am going home today." We had agreed that he would stay in the hospital until 04/02/2020 at the very earliest. What I really feel is best for this patient is to actually go to swing bed and stay here for another week to get stronger. The patient adamantly refuses that. He has not had any nausea and vomiting for the past two days. He was started on simethicone, which seems to have helped him as well. He is eating, however, not a lot. He has not started any of his oral medications either. I did inform the patient and his that if he was determined to go home today that he would be leaving against medical advice. His physical condition is not optimized and he is not optimized from a physical therapy standpoint either. The patient is aware of this and does agree to sign the AMA form. The patient is diabetic, and despite the fact that he has not been eating well, his blood sugars have been very good. We have not given him any of his Lantus insulin or NovoLog insulin while he has been in the hospital. The patient has had an indwelling Mcarthur catheter while in the hospital. He would like this removed at this time. He does self-catheterize himself up to five times a day at home for neurogenic bladder. A couple of weeks ago he was treated for UTI, however, urine sample on admission was negative for infection. We did get a urine sample prior to the Mcarthur being discontinued. The patient does have some protein in his urine and a small amount of occult blood. There is a small amount of leukocyte esterase and 75 to 100 wbc's. There is just a few bacteria. We will send this off for culture as well. LABORATORY DATA: He had lab work today which showed the hemoglobin of 10.9. Comprehensive metabolic panel was normal with the exception of hypocalcemia at 8.3. He does have hypoalbuminemia with an albumin of 2.8. His corrected calcium is normal at 9.3. The albumin is most likely low due to his poor oral intake. He has been on IV fluids of normal saline at 125 mL/h since he has been admitted. PHYSICAL EXAMINATION: VITAL SIGNS: Temp is 97.3, pulse 73, respirations 20, blood pressure 142/85, O2 saturation is 94% on room air. SKIN: Warm, somewhat pale, dry to touch with some ecchymotic areas on his forearms. CARDIAC: Reveals S1, S2 to be normal. No murmur, click, or gallop is auscultated. LUNGS: Clear without rales, wheezes, or rhonchi. He does have a midsternal incision which is healing without signs of erythema, edema, or drainage. ABDOMEN: Soft, nontender. Bowel sounds present in all four quadrants. VASCULAR: There is no pedal edema. He does have two vein harvest graft sites on the medial aspect of his left lower extremity, which are healing without signs of infection. IMPRESSION: 1. Nausea and vomiting. This has improved. We will take him off all of his IV and topical antiemetics at this time. We changed his Reglan to oral to see how he tolerates it prior to him leaving. Abdominal ultrasound was inconclusive with no acute changes. Upper gastrointestinal endoscopy showed duodenitis and esophageal candidiasis. 2. Gastrointestinal bleeding. Positive Gastroccult and Hemoccult. Dr. Ruiz felt that this may be from the duodenitis. He is also on anticoagulation, which adds to this. I did treat him with IV Protonix and he will go home on oral Protonix. Esophageal and duodenal biopsies from the gastroscopy are pending. 3. Dehydration. This has improved and resolved. Renal function has improved. IV fluids were discontinued. 4. Abdominal pain. This has improved over the course of the last few days and more so since adding Reglan into his medication regimen. 5. Recent coronary artery bypass grafting. From a surgical standpoint, he is doing well. He had an echocardiogram this morning with the results pending. 6. Diabetes mellitus. His blood sugars have been stable. He will monitor his blood sugars twice a day. 7. Chronic obstructive pulmonary disease, stable. He does use several respiratory products including Pulmicort, Spiriva, and Brovana. He will continue this at home. 8. Neurogenic bladder. He will continue self-catheterizing himself at home. His indwelling Mcarthur catheter was removed. The urinalysis does have some white blood cells, but very few bacteria. This may be his norm. 9. Depression and anxiety. We did put him back on diazepam at home. I did not restart his Seroquel. This can be added in on followup in the clinic. 10.History of pulmonary embolism. He will go home on Eliquis as he was before, he was treated with Lovenox in the hospital. 11.Hypothyroidism, on replacement. 12.Deconditioning. He did work with Physical Therapy. He had an episode of chest pain this morning with physical therapy. 12-lead EKG was performed and found to have no acute changes. Physical therapist is not in favor of the patient being discharged nor am I. 13.Atrial fibrillation. He did have a few episodes of this postoperatively. He has been in normal sinus rhythm with a rate of 60 to 80 with no ectopics. He was monitored during his hospital stay with telemetry. 14.Noncompliance. I had a very lengthy conversation with the patient and his today in regard to his decision to go home. I feel he is not optimized from a medical standpoint nor a physical standpoint. My recommendation was that he stay in the hospital in swing bed care for at least another week. The patient was adamantly opposed to this. I am concerned that he may go home and have some complications. He is a high fall risk and this was confirmed by the physical therapist. THE PATIENT IS LEAVING THE HOSPITAL AGAINST MEDICAL ADVICE AND WILL SIGN THE PROPER DOCUMENTATION CONFIRMING THIS. The patient is agreeable to follow up with me on a weekly basis for at least a month. He will continue outpatient physical therapy. I did resume some of his home medications including all of his respiratory treatments: 1. Eliquis. 2. Valium. 3. Levothyroxine. 4. Prophylactic Bactrim. 5. He will also continue metoprolol. 6. He may also continue to take trazodone at bedtime. He is being discharged with the following new medications: 1. Metoclopramide which is Reglan 10 mg four times daily. 2. Fluconazole 100 mg daily for seven days. 3. Pantoprazole 40 mg daily. 4. Simethicone 80 mg every 2 hours as needed. I counseled the to review the discharge medications carefully as we did not discharge him on a lot of the medications he came in with. He was instructed to monitor his blood sugars two times daily. He will follow up with me weekly for at least one month. He will continue outpatient physical therapy. Again, it was stressed to the patient that he was leaving the hospital against medical advice and is required to sign the document stating the same. /[id number]/MODL
== END 2020-04-01 16:00 | disposition home or self-care (01) | DRG 391 ==
LOC: KA.ED 06:30 → KA.MS 10:18
PROC: 0DB58ZX Excision of Esophagus, Via Natural or Artificial Opening Endoscopic, Diagnostic (ICD-10-PCS; principal; 2020-03-30)
DX: R53.1 Weakness (principal); R11.2 Nausea with vomiting, unspecified; K29.81 Duodenitis with bleeding; B37.81 Candidal esophagitis; H54.7 Unspecified visual loss; H91.90 Unspecified hearing loss, unspecified ear; E78.00 Pure hypercholesterolemia, unspecified; I10 Essential (primary) hypertension; E86.0 Dehydration; J44.9 Chronic obstructive pulmonary disease, unspecified; N31.9 Neuromuscular dysfunction of bladder, unspecified; F32.9 Major depressive disorder, single episode, unspecified; K57.90 Diverticulosis of intestine, part unspecified, without perforation or abscess without bleeding; K58.9 Irritable bowel syndrome, unspecified; F41.9 Anxiety disorder, unspecified; R33.9 Retention of urine, unspecified; N42.9 Disorder of prostate, unspecified; N52.9 Male erectile dysfunction, unspecified; E03.9 Hypothyroidism, unspecified; M54.9 Dorsalgia, unspecified; I48.91 Unspecified atrial fibrillation; G47.30 Sleep apnea, unspecified; K59.09 Other constipation; K21.9 Gastro-esophageal reflux disease without esophagitis; M19.90 Unspecified osteoarthritis, unspecified site; E89.0 Postprocedural hypothyroidism; Z85.46 Personal history of malignant neoplasm of prostate; Z85.51 Personal history of malignant neoplasm of bladder; Z85.850 Personal history of malignant neoplasm of thyroid; Z90.49 Acquired absence of other specified parts of digestive tract; Z90.6 Acquired absence of other parts of urinary tract; M54.2 Cervicalgia; Z79.01 Long term (current) use of anticoagulants; Z79.890 Hormone replacement therapy; Z79.4 Long term (current) use of insulin; Z99.81 Dependence on supplemental oxygen; Z79.899 Other long term (current) drug therapy; G89.29 Other chronic pain; E11.9 Type 2 diabetes mellitus without complications; I25.10 Atherosclerotic heart disease of native coronary artery without angina pectoris; E78.5 Hyperlipidemia, unspecified; K76.0 Fatty (change of) liver, not elsewhere classified; Z86.711 Personal history of pulmonary embolism; Z91.14 Patient's other noncompliance with medication regimen; Z88.0 Allergy status to penicillin; Z95.1 Presence of aortocoronary bypass graft
CPT/HCPCS: 36415; 71046; 74021; 80053; 84484; 85025; 96361; 96374; 96375; 96376; 99285; J1885; J2405 ×2; J2765; J7030 ×2; U0002; 00731; 51702; 76700; 80048; 81001; 82150; 82271; 82272; 83690; 87086; 87088; 93005; 93306; 94640; 97110-GP; 97162-GP; 97530-GP; 99284; A9270-GY; C9113; J1450; J1650; J2001; J2704; J3360; J3410

== ENCOUNTER 2022-05-01 14:49 | Emergency (ER) | payer MEDICARE, BC ==
[2022-05-01] MEDS ORDERED: Sodium Chloride 0.9% 10 ML Syringe FLUSH PRN (14:53)
[2022-05-01 15:27] LABS: ANION GAP 12.8 mmol/L (5-15)
[2022-05-01 15:35] VITALS: PULSE 71
[2022-05-01 16:12] VITALS: BP 120/81
[2022-05-01] MEDS ORDERED: Meclizine 25 MG Tab PO ONE ×2 (16:15→16:42)
== END 2022-05-01 17:00 | disposition home or self-care (01) ==
LOC: KA.ED 14:49
DX: R42 Dizziness and giddiness (principal); R55 Syncope and collapse; E78.00 Pure hypercholesterolemia, unspecified; I10 Essential (primary) hypertension; J44.9 Chronic obstructive pulmonary disease, unspecified; K21.9 Gastro-esophageal reflux disease without esophagitis; E11.9 Type 2 diabetes mellitus without complications; Z88.0 Allergy status to penicillin; Z79.01 Long term (current) use of anticoagulants; Z79.899 Other long term (current) drug therapy
CPT/HCPCS: 36415; 70450; 71045; 80053; 84484; 85025; 93005; 99285; A9270-GY

== ENCOUNTER 2022-05-10 06:45 | Inpatient (IN) | payer MEDICARE, BC ==
[2022-05-10] MEDS ORDERED: Sodium Chloride 0.9% 10 ML Syringe FLUSH PRN (07:04)
[2022-05-10] MEDS ORDERED: Albuterol/Ipratropium 3.0-0.5 MG/3 ML Neb Soln NEB ONE (07:29)
[2022-05-10 07:30] LABS: ANION GAP 12.8 mmol/L (5-15)
[2022-05-10] MEDS ORDERED: Sodium Chloride 0.9% 1,000 ML IV ONE (07:33)
[2022-05-10] MEDS ORDERED: Ciprofloxacin in D5W 400 MG in Premix Bag 1 BAG IV ONE ×2 (09:02)
[2022-05-10] MEDS ORDERED: methylPREDNISolone Sodium Succinate 125 MG/2 ML SDV IVPUSH ONE (09:02)
[2022-05-10] MEDS ORDERED: Ondansetron 4 MG Tab.DIS PO PRN (10:40)
[2022-05-10] MEDS ORDERED: Diazepam 5 MG Tab PO PRN (12:46)
[2022-05-10] MEDS ORDERED: Albuterol 8 GM Inhaler INH PRN (12:46)
[2022-05-10] MEDS ORDERED: Simethicone 80 MG Tab.Chew PO PRN (12:46)
[2022-05-10] MEDS ORDERED: Triamcinolone Acetonide 0.1% Crm 15 GM Tube TOP PRN (12:46)
[2022-05-10] MEDS ORDERED: Metoclopramide 10 MG Tab PO PRN (12:46)
[2022-05-10] MEDS ORDERED: CYCLOSPORINE EYEBOTH SCH (13:00)
[2022-05-10] MEDS ORDERED: Insulin Glargine,Hum.Rec.Anlog 100 UNIT/ML 3 ML Pen SUBCUT SCH (13:00)
[2022-05-10] MEDS ORDERED: Meclizine 25 MG Tab PO PRN (13:02)
[2022-05-10] MEDS: Levothyroxine 25 MCG Tab PO SCH (14:14)
[2022-05-10] MEDS: Apixaban 5 MG Tab PO SCH ×2 (14:14→20:39)
[2022-05-10] MEDS: Metoprolol Tartrate 25 MG Tab PO SCH ×2 (14:14→22:19)
[2022-05-10] MEDS: Levothyroxine 112 MCG Tab PO SCH (14:15)
[2022-05-10] MEDS: LIFITEGRAST 5% EYEBOTH SCH ×2 (14:16→20:42)
[2022-05-10] MEDS: Insulin Lispro 100 Unit/ML 3 ML KwikPen SUBCUT SCH ×2 (14:25→18:09)
[2022-05-10] MEDS: Sodium Chloride 0.9% 1,000 ML IV SCH (16:23)
[2022-05-10] MEDS ORDERED: Insulin Lispro 100 Unit/ML 3 ML KwikPen SUBCUT SCH (18:00)
[2022-05-10] MEDS: traZODone 50 MG Tab PO SCH (20:39)
[2022-05-10] MEDS: Cholecalciferol (Vitamin D3) 25 MCG Tab PO SCH (20:39)
[2022-05-10] MEDS: Cranberry Ext/C/L. Sporogenes Tab PO SCH (20:39)
[2022-05-10] MEDS: Magnesium Oxide 500 MG Tab PO SCH (20:41)
[2022-05-10] MEDS: Arformoterol 15 MCG/2 ML Neb Soln NEB SCH (20:42)
[2022-05-10] MEDS: Budesonide 0.5 MG/2 ML Neb Susp NEB SCH (20:42)
[2022-05-10] MEDS ORDERED: Apixaban 5 MG Tab PO SCH (21:00)
[2022-05-10] MEDS ORDERED: Metoprolol Tartrate 25 MG Tab PO SCH (21:00)
[2022-05-10] MEDS: Acetaminophen 500 MG Tab PO SCH (22:20)
[2022-05-11] MEDS: Sodium Chloride 0.9% 1,000 ML IV SCH ×3 (01:50→21:39)
[2022-05-11] MEDS: Levothyroxine 112 MCG Tab PO SCH ×2 (06:25→06:31)
[2022-05-11] MEDS: Levothyroxine 25 MCG Tab PO SCH ×2 (06:25→06:31)
[2022-05-11] MEDS: Arformoterol 15 MCG/2 ML Neb Soln NEB SCH ×2 (07:04→20:26)
[2022-05-11] MEDS: Budesonide 0.5 MG/2 ML Neb Susp NEB SCH ×2 (07:47→20:26)
[2022-05-11 07:59] LABS: ANION GAP 14.1 mmol/L (5-15)
[2022-05-11] MEDS: Escitalopram 10 MG Tab PO SCH (08:22)
[2022-05-11] MEDS: Apixaban 5 MG Tab PO SCH ×2 (08:22→20:18)
[2022-05-11] MEDS: Lactobacillus Rhamnosus GG (Probiotic) Cap PO SCH (08:23)
[2022-05-11] MEDS: Metoprolol Tartrate 25 MG Tab PO SCH ×2 (08:23→20:17)
[2022-05-11] MEDS: Insulin Glargine,Hum.Rec.Anlog 100 UNIT/ML 3 ML Pen SUBCUT SCH (08:26)
[2022-05-11] MEDS: LIFITEGRAST 5% EYEBOTH SCH ×2 (08:27→20:23)
[2022-05-11] MEDS: Insulin Lispro 100 Unit/ML 3 ML KwikPen SUBCUT SCH ×3 (08:27→18:04)
[2022-05-11] MEDS ORDERED: Ciprofloxacin 500 MG Tab PO SCH (09:00)
[2022-05-11] MEDS: Tiotropium Bromide 4 GM Inhalation Spray (2.5mcg/1 dose; 10 doses) INH SCH (09:06)
[2022-05-11] MEDS: cefTRIAXone 1 GM Vial IVPUSH SCH (12:59)
[2022-05-11] MEDS: Cholecalciferol (Vitamin D3) 25 MCG Tab PO SCH (20:16)
[2022-05-11] MEDS: Acetaminophen 500 MG Tab PO SCH (20:16)
[2022-05-11] MEDS: Cranberry Ext/C/L. Sporogenes Tab PO SCH (20:18)
[2022-05-11] MEDS: traZODone 50 MG Tab PO SCH (20:18)
[2022-05-11] MEDS: Magnesium Oxide 500 MG Tab PO PRN (20:19)
[2022-05-11] MEDS: Magnesium Oxide 500 MG Tab PO SCH (20:19)
[2022-05-11] MEDS ORDERED: 50% Dextrose in Water 50 ML Syringe IVPUSH PRN (20:28)
[2022-05-11] MEDS ORDERED: Glucagon,Human Recombinant 1 MG Vial IM PRN (20:28)
[2022-05-11] MEDS ORDERED: Insulin Lispro 100 Unit/ML 3 ML KwikPen SUBCUT ONE (20:28)
[2022-05-12] MEDS: Levothyroxine 25 MCG Tab PO SCH ×2 (06:12→06:29)
[2022-05-12] MEDS: Levothyroxine 112 MCG Tab PO SCH ×2 (06:12→06:29)
[2022-05-12] MEDS: Arformoterol 15 MCG/2 ML Neb Soln NEB SCH ×2 (07:05→20:19)
[2022-05-12] MEDS: Insulin Lispro 100 Unit/ML 3 ML KwikPen SUBCUT SCH ×3 (07:38→18:09)
[2022-05-12] MEDS: Budesonide 0.5 MG/2 ML Neb Susp NEB SCH ×2 (07:42→20:28)
[2022-05-12] MEDS: Sodium Chloride 0.9% 1,000 ML IV SCH (07:46)
[2022-05-12 08:27] LABS: ANION GAP 10.5 mmol/L (5-15)
[2022-05-12] MEDS: Tiotropium Bromide 4 GM Inhalation Spray (2.5mcg/1 dose; 10 doses) INH SCH (08:58)
[2022-05-12] MEDS: Escitalopram 10 MG Tab PO SCH (08:59)
[2022-05-12] MEDS: Insulin Glargine,Hum.Rec.Anlog 100 UNIT/ML 3 ML Pen SUBCUT SCH (08:59)
[2022-05-12] MEDS: Metoprolol Tartrate 25 MG Tab PO SCH ×2 (09:00→21:10)
[2022-05-12] MEDS: Apixaban 5 MG Tab PO SCH ×2 (09:00→20:37)
[2022-05-12] MEDS: Lactobacillus Rhamnosus GG (Probiotic) Cap PO SCH (09:01)
[2022-05-12] MEDS: LIFITEGRAST 5% EYEBOTH SCH ×2 (09:02→21:26)
[2022-05-12] MEDS: Magnesium Oxide 500 MG Tab PO PRN (09:14)
[2022-05-12] MEDS: cefTRIAXone 1 GM Vial IVPUSH SCH (12:36)
[2022-05-12] MEDS: Bisacodyl 5 MG Tab PO PRN (18:09)
[2022-05-12] MEDS: Cranberry Ext/C/L. Sporogenes Tab PO SCH (20:36)
[2022-05-12] MEDS: Acetaminophen 500 MG Tab PO SCH (20:36)
[2022-05-12] MEDS: traZODone 50 MG Tab PO SCH (20:37)
[2022-05-12] MEDS: Magnesium Oxide 500 MG Tab PO SCH (20:37)
[2022-05-12] MEDS: Cholecalciferol (Vitamin D3) 25 MCG Tab PO SCH (20:37)
[2022-05-13] MEDS: Levothyroxine 112 MCG Tab PO SCH (07:07)
[2022-05-13] MEDS: Levothyroxine 25 MCG Tab PO SCH (07:07)
[2022-05-13] MEDS: Arformoterol 15 MCG/2 ML Neb Soln NEB SCH ×2 (07:07→20:44)
[2022-05-13 07:27] LABS: ANION GAP 12.1 mmol/L (5-15)
[2022-05-13] MEDS: Budesonide 0.5 MG/2 ML Neb Susp NEB SCH ×2 (07:55→20:59)
[2022-05-13] MEDS: Insulin Lispro 100 Unit/ML 3 ML KwikPen SUBCUT SCH ×3 (08:02→18:02)
[2022-05-13] MEDS: Insulin Glargine,Hum.Rec.Anlog 100 UNIT/ML 3 ML Pen SUBCUT SCH (08:57)
[2022-05-13] MEDS: Tiotropium Bromide 4 GM Inhalation Spray (2.5mcg/1 dose; 10 doses) INH SCH (08:57)
[2022-05-13] MEDS: LIFITEGRAST 5% EYEBOTH SCH ×2 (08:57→20:46)
[2022-05-13] MEDS: Apixaban 5 MG Tab PO SCH ×2 (08:58→20:45)
[2022-05-13] MEDS: Metoprolol Tartrate 25 MG Tab PO SCH ×2 (08:58→21:10)
[2022-05-13] MEDS: Escitalopram 10 MG Tab PO SCH (08:58)
[2022-05-13] MEDS: Lactobacillus Rhamnosus GG (Probiotic) Cap PO SCH (08:59)
[2022-05-13] MEDS: Magnesium Oxide 500 MG Tab PO PRN (08:59)
[2022-05-13] MEDS: Bisacodyl 5 MG Tab PO PRN (08:59)
[2022-05-13] MEDS ORDERED: Magnesium Hydroxide 400 MG/5 ML Susp 30 ML Cup PO PRN (10:21)
[2022-05-13] MEDS: cefTRIAXone 1 GM Vial IVPUSH SCH (12:37)
[2022-05-13] MEDS ORDERED: Acetaminophen 325 MG Tab PO PRN (15:59)
[2022-05-13] MEDS ORDERED: Magnesium Citrate Solution 296 ML Bottle PO ONE (16:03)
[2022-05-13] MEDS: Cranberry Ext/C/L. Sporogenes Tab PO SCH (20:44)
[2022-05-13] MEDS: Cholecalciferol (Vitamin D3) 25 MCG Tab PO SCH (20:44)
[2022-05-13] MEDS: traZODone 50 MG Tab PO SCH (20:45)
[2022-05-13] MEDS: Magnesium Oxide 500 MG Tab PO SCH (20:45)
[2022-05-13] MEDS: Acetaminophen 500 MG Tab PO SCH (20:46)
[2022-05-14] MEDS: Arformoterol 15 MCG/2 ML Neb Soln NEB SCH ×2 (07:24→20:39)
[2022-05-14] MEDS: Levothyroxine 25 MCG Tab PO SCH (07:24)
[2022-05-14] MEDS: Levothyroxine 112 MCG Tab PO SCH (07:24)
[2022-05-14] MEDS: Insulin Lispro 100 Unit/ML 3 ML KwikPen SUBCUT SCH ×4 (08:03→20:55)
[2022-05-14] MEDS: Lactobacillus Rhamnosus GG (Probiotic) Cap PO SCH (08:31)
[2022-05-14] MEDS: LIFITEGRAST 5% EYEBOTH SCH ×2 (08:31→21:20)
[2022-05-14] MEDS: Budesonide 0.5 MG/2 ML Neb Susp NEB SCH ×2 (08:31→20:39)
[2022-05-14] MEDS: Escitalopram 10 MG Tab PO SCH (08:32)
[2022-05-14] MEDS: Metoprolol Tartrate 25 MG Tab PO SCH ×2 (08:32→21:00)
[2022-05-14] MEDS: Apixaban 5 MG Tab PO SCH ×2 (08:32→20:40)
[2022-05-14] MEDS: Bisacodyl 5 MG Tab PO PRN (08:32)
[2022-05-14] MEDS: Insulin Glargine,Hum.Rec.Anlog 100 UNIT/ML 3 ML Pen SUBCUT SCH (08:33)
[2022-05-14] MEDS: Tiotropium Bromide 4 GM Inhalation Spray (2.5mcg/1 dose; 10 doses) INH SCH (08:38)
[2022-05-14] MEDS: cefTRIAXone 1 GM Vial IVPUSH SCH (12:47)
[2022-05-14] MEDS: traZODone 50 MG Tab PO SCH (20:39)
[2022-05-14] MEDS: Acetaminophen 500 MG Tab PO SCH (20:39)
[2022-05-14] MEDS: Cholecalciferol (Vitamin D3) 25 MCG Tab PO SCH (20:40)
[2022-05-14] MEDS: Magnesium Oxide 500 MG Tab PO SCH (20:40)
[2022-05-14] MEDS: Cranberry Ext/C/L. Sporogenes Tab PO SCH (20:40)
[2022-05-15] MEDS: Levothyroxine 25 MCG Tab PO SCH (06:41)
[2022-05-15] MEDS: Levothyroxine 112 MCG Tab PO SCH (06:41)
[2022-05-15 07:00] VITALS: BP 132/83
[2022-05-15] MEDS: Arformoterol 15 MCG/2 ML Neb Soln NEB SCH (07:20)
[2022-05-15] MEDS: Budesonide 0.5 MG/2 ML Neb Susp NEB SCH (07:46)
[2022-05-15] MEDS: Insulin Glargine,Hum.Rec.Anlog 100 UNIT/ML 3 ML Pen SUBCUT SCH (08:25)
[2022-05-15] MEDS: Lactobacillus Rhamnosus GG (Probiotic) Cap PO SCH (08:27)
[2022-05-15] MEDS: Escitalopram 10 MG Tab PO SCH (08:28)
[2022-05-15] MEDS: Apixaban 5 MG Tab PO SCH (08:28)
[2022-05-15] MEDS: Metoprolol Tartrate 25 MG Tab PO SCH (08:29)
[2022-05-15 08:30] VITALS: PULSE 70
[2022-05-15] MEDS: LIFITEGRAST 5% EYEBOTH SCH (08:32)
[2022-05-15] MEDS: Tiotropium Bromide 4 GM Inhalation Spray (2.5mcg/1 dose; 10 doses) INH SCH (08:35)
[2022-05-15] MEDS: Insulin Lispro 100 Unit/ML 3 ML KwikPen SUBCUT SCH (08:37)
== END 2022-05-15 09:30 | disposition swing bed (61) | DRG 699 ==
LOC: KA.ED 06:45 → KA.MS 09:11
PROVIDERS: ADMIT Internal Medicine; ATTEND Internal Medicine
DX: T83.518A Infection and inflammatory reaction due to other urinary catheter, initial encounter (principal); J44.1 Chronic obstructive pulmonary disease with (acute) exacerbation; R09.02 Hypoxemia; N39.0 Urinary tract infection, site not specified; Y84.8 Other medical procedures as the cause of abnormal reaction of the patient, or of later complication, without mention of misadventure at the time of the procedure; E03.9 Hypothyroidism, unspecified; E78.00 Pure hypercholesterolemia, unspecified; I10 Essential (primary) hypertension; G47.30 Sleep apnea, unspecified; K21.9 Gastro-esophageal reflux disease without esophagitis; M19.90 Unspecified osteoarthritis, unspecified site; E11.9 Type 2 diabetes mellitus without complications; F32.A Depression, unspecified; F41.9 Anxiety disorder, unspecified; Z85.850 Personal history of malignant neoplasm of thyroid; H91.90 Unspecified hearing loss, unspecified ear; H54.7 Unspecified visual loss; K59.09 Other constipation; M54.9 Dorsalgia, unspecified; G89.29 Other chronic pain; M54.2 Cervicalgia; R33.9 Retention of urine, unspecified; N42.9 Disorder of prostate, unspecified; I25.10 Atherosclerotic heart disease of native coronary artery without angina pectoris; N31.9 Neuromuscular dysfunction of bladder, unspecified; B96.20 Unspecified Escherichia coli [E. coli] as the cause of diseases classified elsewhere; Z20.822 Contact with and (suspected) exposure to COVID-19; E11.65 Type 2 diabetes mellitus with hyperglycemia; T38.0X5A Adverse effect of glucocorticoids and synthetic analogues, initial encounter; Z86.19 Personal history of other infectious and parasitic diseases; Z79.890 Hormone replacement therapy; Z86.711 Personal history of pulmonary embolism; Z79.01 Long term (current) use of anticoagulants; Z79.4 Long term (current) use of insulin; Z79.899 Other long term (current) drug therapy; Z88.0 Allergy status to penicillin; Z95.1 Presence of aortocoronary bypass graft; Z87.440 Personal history of urinary (tract) infections; Z98.890 Other specified postprocedural states
CPT/HCPCS: 36415; 51701; 71046; 80048; 80053; 81001; 82947; 83605; 83880; 85025; 87040; 87086; 87088; 87186; 94640; 96360; 97161-GP; 99223; 99232; 99285-25; A9270-GY; J0696; J0744; J1815-GY; J2930; J7030; J7620-GY; U0002

== ENCOUNTER 2022-05-15 08:58 | Inpatient (IN) | payer MEDICARE, BC ==
[2022-05-15] MEDS ORDERED: Magnesium Hydroxide 400 MG/5 ML Susp 30 ML Cup PO PRN (09:18)
[2022-05-15] MEDS ORDERED: Meclizine 25 MG Tab PO PRN (09:18)
[2022-05-15] MEDS ORDERED: Bisacodyl 5 MG Tab PO PRN (09:18)
[2022-05-15] MEDS ORDERED: Ondansetron 4 MG Tab.DIS PO PRN (09:18)
[2022-05-15] MEDS ORDERED: Metoclopramide 10 MG Tab PO PRN (09:18)
[2022-05-15] MEDS ORDERED: Acetaminophen 325 MG Tab PO PRN (09:18)
[2022-05-15] MEDS ORDERED: Triamcinolone Acetonide 0.1% Crm 15 GM Tube TOP PRN (09:18)
[2022-05-15] MEDS ORDERED: Magnesium Oxide 500 MG Tab PO PRN (09:18)
[2022-05-15] MEDS ORDERED: Glucagon,Human Recombinant 1 MG Vial IM PRN ×2 (09:18)
[2022-05-15] MEDS ORDERED: Albuterol 8 GM Inhaler INH PRN (09:18)
[2022-05-15] MEDS ORDERED: Sodium Chloride 0.9% 10 ML Syringe FLUSH PRN ×2 (09:18)
[2022-05-15] MEDS ORDERED: 50% Dextrose in Water 50 ML Syringe IVPUSH PRN (09:18)
[2022-05-15] MEDS ORDERED: Diazepam 5 MG Tab PO PRN (09:18)
[2022-05-15] MEDS: Insulin Lispro 100 Unit/ML 3 ML KwikPen SUBCUT SCH (11:53)
[2022-05-15] MEDS: Ciprofloxacin 500 MG Tab PO SCH (11:53)
[2022-05-15] MEDS: Simethicone 80 MG Tab.Chew PO PRN (13:25)
[2022-05-15] MEDS ORDERED: Arformoterol 15 MCG/2 ML Neb Soln NEB SCH (20:00)
[2022-05-15] MEDS ORDERED: Budesonide 0.5 MG/2 ML Neb Susp NEB SCH (20:15)
[2022-05-15] MEDS ORDERED: Acetaminophen 500 MG Tab PO SCH (21:00)
[2022-05-15] MEDS ORDERED: Cranberry Ext/C/L. Sporogenes Tab PO SCH (21:00)
[2022-05-15] MEDS ORDERED: Magnesium Oxide 500 MG Tab PO SCH (21:00)
[2022-05-15] MEDS ORDERED: Cholecalciferol (Vitamin D3) 25 MCG Tab PO SCH (21:00)
[2022-05-15] MEDS ORDERED: Apixaban 5 MG Tab PO SCH (21:00)
[2022-05-15] MEDS ORDERED: Metoprolol Tartrate 25 MG Tab PO SCH (21:00)
[2022-05-15] MEDS ORDERED: traZODone 50 MG Tab PO SCH (21:00)
[2022-05-15] MEDS ORDERED: XIIDRA 5% EYEBOTH SCH (21:00)
[2022-05-16] MEDS ORDERED: Levothyroxine 112 MCG Tab PO SCH (07:30)
[2022-05-16] MEDS ORDERED: Levothyroxine 25 MCG Tab PO SCH (07:30)
[2022-05-16] MEDS ORDERED: Insulin Glargine,Hum.Rec.Anlog 100 UNIT/ML 3 ML Pen SUBCUT SCH (09:00)
[2022-05-16] MEDS ORDERED: Tiotropium Bromide 4 GM Inhalation Spray (2.5mcg/1 dose; 10 doses) INH SCH (09:00)
[2022-05-16] MEDS ORDERED: Escitalopram 10 MG Tab PO SCH (09:00)
[2022-05-16] MEDS ORDERED: Lactobacillus Rhamnosus GG (Probiotic) Cap PO SCH (09:00)
== END 2022-05-15 16:50 | disposition left against medical advice (07) | DRG 948 ==
LOC: KA.MS 09:30
PROVIDERS: ADMIT Internal Medicine; ATTEND Internal Medicine
DX: R53.1 Weakness (principal); J44.9 Chronic obstructive pulmonary disease, unspecified; E11.9 Type 2 diabetes mellitus without complications; E03.9 Hypothyroidism, unspecified; N31.9 Neuromuscular dysfunction of bladder, unspecified; I25.10 Atherosclerotic heart disease of native coronary artery without angina pectoris; Z79.01 Long term (current) use of anticoagulants; Z79.899 Other long term (current) drug therapy; Z79.4 Long term (current) use of insulin; Z79.890 Hormone replacement therapy; Z87.440 Personal history of urinary (tract) infections; Z86.711 Personal history of pulmonary embolism
CPT/HCPCS: 82947; A9270-GY

== ENCOUNTER 2022-10-14 11:27 | Inpatient (IN) | payer MEDICARE, BC ==
[2022-10-14] MEDS ORDERED: Magnesium Hydroxide 400 MG/5 ML Susp 30 ML Cup PO PRN (15:14)
[2022-10-14] MEDS ORDERED: Diclofenac Sodium 1% Gel 100 GM Tube TOP PRN (15:14)
[2022-10-14] MEDS ORDERED: Metoclopramide 10 MG Tab PO PRN (15:14)
[2022-10-14] MEDS ORDERED: Albuterol 8 GM Inhaler INH PRN (15:14)
[2022-10-14] MEDS ORDERED: Sodium Chloride 0.9% 10 ML Syringe FLUSH PRN ×2 (15:14)
[2022-10-14] MEDS: Insulin Regular, Human 100 Units/ML 10 ML Vial SUBCUT SCH (18:01)
[2022-10-14] MEDS: Fluticasone NASAL Spray 16 GM Bottle NASBOTH SCH (18:47)
[2022-10-14] MEDS: LIFITEGRAST 5% EYEBOTH SCH ×2 (18:49→20:12)
[2022-10-14] MEDS: Arformoterol 15 MCG/2 ML Neb Soln NEB SCH (20:45)
[2022-10-14] MEDS: Budesonide 0.5 MG/2 ML Neb Susp NEB SCH (20:45)
[2022-10-14] MEDS: Diazepam 5 MG Tab PO PRN (20:48)
[2022-10-14] MEDS: traZODone 50 MG Tab PO SCH (20:48)
[2022-10-14] MEDS: Apixaban 5 MG Tab PO SCH (20:48)
[2022-10-14] MEDS: Cephalexin 250 MG Cap PO SCH (20:48)
[2022-10-14] MEDS: Magnesium Oxide 500 MG Tab PO SCH (20:49)
[2022-10-14] MEDS: Cholecalciferol (Vitamin D3) 25 MCG Tab PO SCH (20:49)
[2022-10-14] MEDS: Metoprolol Tartrate 25 MG Tab PO SCH (20:49)
[2022-10-14] MEDS ORDERED: CLOBETASOL TOP SCH (21:00)
[2022-10-15] MEDS: Levothyroxine 25 MCG Tab PO SCH (07:20)
[2022-10-15] MEDS: Budesonide 0.5 MG/2 ML Neb Susp NEB SCH ×2 (07:20→20:21)
[2022-10-15] MEDS: Levothyroxine 112 MCG Tab PO SCH (07:20)
[2022-10-15 07:25] LABS: ANION GAP 14.5 mmol/L (5-15)
[2022-10-15] MEDS: Arformoterol 15 MCG/2 ML Neb Soln NEB SCH ×2 (08:00→20:21)
[2022-10-15] MEDS: Insulin Glargine,Hum.Rec.Anlog 100 UNIT/ML 3 ML Pen SUBCUT SCH (08:00)
[2022-10-15] MEDS: Insulin Regular, Human 100 Units/ML 10 ML Vial SUBCUT SCH ×3 (08:00→17:25)
[2022-10-15] MEDS: Tiotropium BR/Olodaterol HCL 4 GM Inhalation Spray 2.5mcg/1 dose; 10 doses INH SCH (08:03)
[2022-10-15] MEDS: Escitalopram 10 MG Tab PO SCH (08:03)
[2022-10-15] MEDS: [UNRECOGNIZED DRUG - OTHER] PO SCH (08:03)
[2022-10-15] MEDS: Fluticasone NASAL Spray 16 GM Bottle NASBOTH SCH (08:03)
[2022-10-15] MEDS: Apixaban 5 MG Tab PO SCH ×2 (08:03→20:23)
[2022-10-15] MEDS: Magnesium Oxide 500 MG Tab PO SCH ×2 (08:04→20:23)
[2022-10-15] MEDS: Metoprolol Tartrate 25 MG Tab PO SCH ×2 (08:04→20:22)
[2022-10-15] MEDS: LIFITEGRAST 5% EYEBOTH SCH ×2 (08:05→20:21)
[2022-10-15] MEDS ORDERED: REMDESIVIR 100 MG in Sodium Chloride 0.9% 100 ML IV SCH (14:00)
[2022-10-15] MEDS ORDERED: Sodium Chloride 0.65% Nasal Spray 45 ML Bottle NAS PRN (16:52)
[2022-10-15] MEDS: traZODone 50 MG Tab PO SCH (20:23)
[2022-10-15] MEDS: Cephalexin 250 MG Cap PO SCH (20:23)
[2022-10-15] MEDS: Cholecalciferol (Vitamin D3) 25 MCG Tab PO SCH (20:23)
[2022-10-15] MEDS: Diazepam 5 MG Tab PO PRN (20:23)
[2022-10-16 07:45] LABS: ANION GAP 11.2 mmol/L (5-15)
[2022-10-16] MEDS: Metoprolol Tartrate 25 MG Tab PO SCH ×2 (08:08→20:17)
[2022-10-16] MEDS: Magnesium Oxide 500 MG Tab PO SCH ×2 (08:08→20:16)
[2022-10-16] MEDS: Levothyroxine 112 MCG Tab PO SCH (08:08)
[2022-10-16] MEDS: Levothyroxine 25 MCG Tab PO SCH (08:09)
[2022-10-16] MEDS: Apixaban 5 MG Tab PO SCH ×2 (08:09→20:18)
[2022-10-16] MEDS: Escitalopram 10 MG Tab PO SCH (08:09)
[2022-10-16] MEDS: Budesonide 0.5 MG/2 ML Neb Susp NEB SCH ×2 (08:10→19:21)
[2022-10-16] MEDS: Insulin Glargine,Hum.Rec.Anlog 100 UNIT/ML 3 ML Pen SUBCUT SCH (08:12)
[2022-10-16] MEDS: Arformoterol 15 MCG/2 ML Neb Soln NEB SCH ×2 (08:12→19:21)
[2022-10-16] MEDS: [UNRECOGNIZED DRUG - OTHER] PO SCH (08:12)
[2022-10-16] MEDS: Insulin Regular, Human 100 Units/ML 10 ML Vial SUBCUT SCH ×3 (08:13→18:04)
[2022-10-16] MEDS: LIFITEGRAST 5% EYEBOTH SCH ×2 (08:14→20:19)
[2022-10-16] MEDS: Fluticasone NASAL Spray 16 GM Bottle NASBOTH SCH (08:14)
[2022-10-16] MEDS: Tiotropium BR/Olodaterol HCL 4 GM Inhalation Spray 2.5mcg/1 dose; 10 doses INH SCH (08:20)
[2022-10-16] MEDS: traZODone 50 MG Tab PO SCH (20:16)
[2022-10-16] MEDS: Cholecalciferol (Vitamin D3) 25 MCG Tab PO SCH (20:17)
[2022-10-16] MEDS: Diazepam 5 MG Tab PO PRN (20:17)
[2022-10-16] MEDS: Cephalexin 250 MG Cap PO SCH (20:17)
[2022-10-17] MEDS: Levothyroxine 25 MCG Tab PO SCH (07:22)
[2022-10-17] MEDS: Levothyroxine 112 MCG Tab PO SCH (07:22)
[2022-10-17] MEDS: Insulin Regular, Human 100 Units/ML 10 ML Vial SUBCUT SCH ×3 (08:14→17:57)
[2022-10-17] MEDS: Escitalopram 10 MG Tab PO SCH (08:19)
[2022-10-17] MEDS: Magnesium Oxide 500 MG Tab PO SCH ×2 (08:19→20:29)
[2022-10-17] MEDS: Apixaban 5 MG Tab PO SCH ×2 (08:20→20:30)
[2022-10-17] MEDS: Metoprolol Tartrate 25 MG Tab PO SCH ×2 (08:21→20:36)
[2022-10-17] MEDS: [UNRECOGNIZED DRUG - OTHER] PO SCH (08:25)
[2022-10-17] MEDS: Fluticasone NASAL Spray 16 GM Bottle NASBOTH SCH (08:26)
[2022-10-17] MEDS: Insulin Glargine,Hum.Rec.Anlog 100 UNIT/ML 3 ML Pen SUBCUT SCH (08:26)
[2022-10-17] MEDS: Tiotropium BR/Olodaterol HCL 4 GM Inhalation Spray 2.5mcg/1 dose; 10 doses INH SCH (08:28)
[2022-10-17] MEDS: Arformoterol 15 MCG/2 ML Neb Soln NEB SCH ×2 (08:34→19:22)
[2022-10-17] MEDS: Budesonide 0.5 MG/2 ML Neb Susp NEB SCH ×2 (08:39→19:19)
[2022-10-17] MEDS: LIFITEGRAST 5% EYEBOTH SCH ×2 (08:42→20:30)
[2022-10-17] MEDS: Acetaminophen 500 MG Tab PO PRN (19:15)
[2022-10-17] MEDS: Diazepam 5 MG Tab PO PRN (20:29)
[2022-10-17] MEDS: traZODone 50 MG Tab PO SCH (20:29)
[2022-10-17] MEDS: Cholecalciferol (Vitamin D3) 25 MCG Tab PO SCH (20:30)
[2022-10-17] MEDS: Cephalexin 250 MG Cap PO SCH (20:30)
[2022-10-18] MEDS: Levothyroxine 25 MCG Tab PO SCH ×2 (05:12→06:33)
[2022-10-18] MEDS: Levothyroxine 112 MCG Tab PO SCH ×2 (05:12→06:33)
[2022-10-18] MEDS: Fluticasone NASAL Spray 16 GM Bottle NASBOTH SCH (08:07)
[2022-10-18] MEDS: LIFITEGRAST 5% EYEBOTH SCH ×2 (08:07→20:09)
[2022-10-18] MEDS: Insulin Regular, Human 100 Units/ML 10 ML Vial SUBCUT SCH ×3 (08:07→18:04)
[2022-10-18] MEDS: [UNRECOGNIZED DRUG - OTHER] PO SCH (08:08)
[2022-10-18] MEDS: Tiotropium BR/Olodaterol HCL 4 GM Inhalation Spray 2.5mcg/1 dose; 10 doses INH SCH (08:08)
[2022-10-18] MEDS: Insulin Glargine,Hum.Rec.Anlog 100 UNIT/ML 3 ML Pen SUBCUT SCH (08:08)
[2022-10-18] MEDS: Magnesium Oxide 500 MG Tab PO SCH ×2 (08:09→20:08)
[2022-10-18] MEDS: Escitalopram 10 MG Tab PO SCH (08:09)
[2022-10-18] MEDS: Metoprolol Tartrate 25 MG Tab PO SCH ×2 (08:09→20:09)
[2022-10-18] MEDS: Apixaban 5 MG Tab PO SCH ×2 (08:09→20:09)
[2022-10-18] MEDS: Arformoterol 15 MCG/2 ML Neb Soln NEB SCH ×2 (08:34→20:08)
[2022-10-18] MEDS: Budesonide 0.5 MG/2 ML Neb Susp NEB SCH ×2 (08:54→20:08)
[2022-10-18] MEDS: Cephalexin 250 MG Cap PO SCH (20:08)
[2022-10-18] MEDS: traZODone 50 MG Tab PO SCH (20:08)
[2022-10-18] MEDS: Diazepam 5 MG Tab PO PRN (20:08)
[2022-10-18] MEDS: Cholecalciferol (Vitamin D3) 25 MCG Tab PO SCH (20:08)
[2022-10-19] MEDS: Levothyroxine 25 MCG Tab PO SCH (07:18)
[2022-10-19] MEDS: Levothyroxine 112 MCG Tab PO SCH (07:18)
[2022-10-19] MEDS: Arformoterol 15 MCG/2 ML Neb Soln NEB SCH ×2 (07:32→20:15)
[2022-10-19] MEDS: Tiotropium BR/Olodaterol HCL 4 GM Inhalation Spray 2.5mcg/1 dose; 10 doses INH SCH (08:19)
[2022-10-19] MEDS: Fluticasone NASAL Spray 16 GM Bottle NASBOTH SCH (08:19)
[2022-10-19] MEDS: Insulin Glargine,Hum.Rec.Anlog 100 UNIT/ML 3 ML Pen SUBCUT SCH (08:20)
[2022-10-19] MEDS: Metoprolol Tartrate 25 MG Tab PO SCH ×2 (08:21→20:18)
[2022-10-19] MEDS: Insulin Regular, Human 100 Units/ML 10 ML Vial SUBCUT SCH ×3 (08:21→18:06)
[2022-10-19] MEDS: [UNRECOGNIZED DRUG - OTHER] PO SCH (08:21)
[2022-10-19] MEDS: Escitalopram 10 MG Tab PO SCH (08:21)
[2022-10-19] MEDS: LIFITEGRAST 5% EYEBOTH SCH ×2 (08:21→20:24)
[2022-10-19] MEDS: Magnesium Oxide 500 MG Tab PO SCH ×2 (08:22→20:18)
[2022-10-19] MEDS: Apixaban 5 MG Tab PO SCH ×2 (08:22→20:20)
[2022-10-19] MEDS: Budesonide 0.5 MG/2 ML Neb Susp NEB SCH ×2 (08:32→20:15)
[2022-10-19] MEDS: Acetaminophen 500 MG Tab PO PRN (13:48)
[2022-10-19] MEDS: Cephalexin 250 MG Cap PO SCH (20:18)
[2022-10-19] MEDS: traZODone 50 MG Tab PO SCH (20:19)
[2022-10-19] MEDS: Diazepam 5 MG Tab PO PRN (20:20)
[2022-10-19] MEDS: Cholecalciferol (Vitamin D3) 25 MCG Tab PO SCH (20:20)
[2022-10-20] MEDS: Arformoterol 15 MCG/2 ML Neb Soln NEB SCH (07:31)
[2022-10-20] MEDS: Levothyroxine 112 MCG Tab PO SCH (07:44)
[2022-10-20] MEDS: Levothyroxine 25 MCG Tab PO SCH (07:44)
[2022-10-20] MEDS: Insulin Regular, Human 100 Units/ML 10 ML Vial SUBCUT SCH (07:49)
[2022-10-20] MEDS: Budesonide 0.5 MG/2 ML Neb Susp NEB SCH (08:30)
[2022-10-20] MEDS: Fluticasone NASAL Spray 16 GM Bottle NASBOTH SCH (08:46)
[2022-10-20] MEDS: Escitalopram 10 MG Tab PO SCH (08:47)
[2022-10-20] MEDS: Magnesium Oxide 500 MG Tab PO SCH (08:47)
[2022-10-20] MEDS: Apixaban 5 MG Tab PO SCH (08:47)
[2022-10-20] MEDS: LIFITEGRAST 5% EYEBOTH SCH (08:48)
[2022-10-20] MEDS: Tiotropium BR/Olodaterol HCL 4 GM Inhalation Spray 2.5mcg/1 dose; 10 doses INH SCH (08:49)
[2022-10-20] MEDS: [UNRECOGNIZED DRUG - OTHER] PO SCH (08:49)
[2022-10-20] MEDS: Metoprolol Tartrate 25 MG Tab PO SCH (08:52)
[2022-10-20 08:53] VITALS: BP 110/66; PULSE 76
[2022-10-20] MEDS: Insulin Glargine,Hum.Rec.Anlog 100 UNIT/ML 3 ML Pen SUBCUT SCH (08:55)
== END 2022-10-20 10:40 | disposition home health service (06) | DRG 179 ==
LOC: KA.MS 15:06
PROVIDERS: ADMIT Nurse Practitioner Family; ATTEND Nurse Practitioner Family
DX: U07.1 COVID-19 (principal); R53.1 Weakness; J44.9 Chronic obstructive pulmonary disease, unspecified; E78.5 Hyperlipidemia, unspecified; I10 Essential (primary) hypertension; E11.9 Type 2 diabetes mellitus without complications; E03.9 Hypothyroidism, unspecified; E66.9 Obesity, unspecified; F32.A Depression, unspecified; H91.90 Unspecified hearing loss, unspecified ear; H54.7 Unspecified visual loss; K59.09 Other constipation; K21.9 Gastro-esophageal reflux disease without esophagitis; K57.90 Diverticulosis of intestine, part unspecified, without perforation or abscess without bleeding; N31.9 Neuromuscular dysfunction of bladder, unspecified; N40.1 Benign prostatic hyperplasia with lower urinary tract symptoms; R33.8 Other retention of urine; M19.90 Unspecified osteoarthritis, unspecified site; G89.29 Other chronic pain; M54.9 Dorsalgia, unspecified; L40.9 Psoriasis, unspecified; Z86.16 Personal history of COVID-19; Z95.1 Presence of aortocoronary bypass graft; Z68.31 Body mass index [BMI] 31.0-31.9, adult; Z79.890 Hormone replacement therapy; Z98.49 Cataract extraction status, unspecified eye; Z97.4 Presence of external hearing-aid; Z88.0 Allergy status to penicillin; Z79.4 Long term (current) use of insulin; Z79.899 Other long term (current) drug therapy; I25.10 Atherosclerotic heart disease of native coronary artery without angina pectoris; I50.9 Heart failure, unspecified; E78.00 Pure hypercholesterolemia, unspecified; Z87.440 Personal history of urinary (tract) infections; M54.2 Cervicalgia; F41.9 Anxiety disorder, unspecified; Z87.891 Personal history of nicotine dependence
CPT/HCPCS: 36415; 80053; 82947; 83615; 85025; 94640; 97110-GP; 97161-GP; A9270-GY

== ENCOUNTER 2023-05-28 13:34 | Inpatient (IN) | payer OTHER ==
[2023-05-28] MEDS ORDERED: Sodium Chloride 0.9% 10 ML Syringe FLUSH PRN (14:00)
[2023-05-28 14:08] LABS: BASOPHILS ABSOLUTE AUTO 0.05 10^3/uL (0.00-0.10); BASOPHILS PERCENT AUTO 0.9 % (0.0-1.0); EOSINOPHILS ABSOLUTE AUTO 0.33 10^3/uL (0.10-0.30); EOSINOPHILS PERCENT AUTO 5.9 % (1.0-3.0); HEMATOCRIT 42.7 % (40.0-52.0); IMMATURE GRAN ABSOLUTE AUTO 0.02 10^3/uL (0.00-0.50); IMMATURE GRAN PERCENT AUTO 0.4 % (0.0-5.0); LYMPHOCYTES ABSOLUTE AUTO 1.08 10^3/uL (1.00-4.00); LYMPHOCYTES PERCENT AUTO 19.4 % (20.0-40.0); MEAN CORPUSCULAR HEMOGLOBIN 29.9 pg (27.0-31.0); MEAN CORPUSCULAR HGB CONC 32.8 g/dL (32.0-36.0); MEAN CORPUSCULAR VOLUME 91.2 fL (82.0-92.0); MEAN PLATELET VOLUME 9.1 fL (7.4-10.4); MONOCYTES ABSOLUTE AUTO 0.56 10^3/uL (0.10-0.80); MONOCYTES PERCENT AUTO 10.1 % (2.0-8.0); NEUTROPHILS ABSOLUTE AUTO 3.53 10^3/uL (2.50-7.00); NEUTROPHILS PERCENT AUTO 63.3 % (50.0-70.0); PLATELET COUNT,PLT 219 10^3/uL (150-400); RED BLOOD CELL COUNT 4.68 10^6/uL (4.50-6.00); RED CELL DISTRIBUTION WIDTH 13.1 % (11.5-14.5); WHITE BLOOD CELL COUNT,WBC 5.57 10^3/uL (5.00-10.00)
[2023-05-28 14:26] LABS: ALBUMIN 3.51 g/dL (3.40-5.00); ANION GAP 14.1 mmol/L (5-15); BILIRUBIN TOTAL 0.3 mg/dL (0.2-1.0); CALCIUM 9.2 mg/dL (8.7-10.3); CARBON DIOXIDE,CO2 29.9 mmol/L (21.0-32.0); CREATININE 1.16 mg/dL (0.51-1.17); EST CRCL DRUG DOSING (CG) 54.19 mL/min; PROTEIN TOTAL,TP 7.6 g/dL (6.4-8.2)
[2023-05-28 14:50] LABS: APPEARANCE,URINE SLIGHTLY CLOUDY (CLEAR); BILIRUBIN,URINE NEGATIVE (NEGATIVE); COLOR,URINE YELLOW (YELLOW); GLUCOSE,URINE NEGATIVE (NEGATIVE); KETONES,URINE TRACE mg/dL (NEGATIVE); LEUKOCYTE ESTERASE,URINE SMALL (NEGATIVE); NITRITE,URINE NEGATIVE (NEGATIVE); OCCULT BLOOD,URINE TRACE-INTACT (NEGATIVE); PH,URINE 5.5 (5.0-9.0); PROTEIN,URINE NEGATIVE (NEGATIVE); UROBILINOGEN,URINE 0.2 E.U./dL (0.2-1.0)
[2023-05-28 14:59] LABS: BACTERIA,URINE FEW /HPF (NONE TO FEW); EPITHELIAL CELLS,URINE FEW /LPF; WBC,URINE 50-75 /HPF (0-5)
[2023-05-28] MEDS ORDERED: Diazepam 5 MG Tab PO PRN (19:39)
[2023-05-28] MEDS ORDERED: Metoclopramide 10 MG Tab PO PRN (19:39)
[2023-05-28] MEDS ORDERED: Diclofenac Sodium 1% Gel 100 GM Tube TOP PRN (19:39)
[2023-05-28] MEDS ORDERED: Fluticasone NASAL Spray 16 GM Bottle NASBOTH PRN (19:39)
[2023-05-28] MEDS ORDERED: Albuterol 8 GM Inhaler INH PRN (19:39)
[2023-05-28] MEDS ORDERED: Acetaminophen 500 MG Tab PO PRN (19:39)
[2023-05-28] MEDS ORDERED: Insulin Glargine,Hum.Rec.Anlog 100 UNIT/ML 3 ML Pen SUBCUT SCH (20:15)
[2023-05-28] MEDS ORDERED: Non-Formulary Medication 1 Each (Clobetasol [Clobetasol Propionate 0.05%] 15 GM Tube) TOP SCH (21:00)
[2023-05-28] MEDS ORDERED: 50% Dextrose in Water 50 ML Syringe IVPUSH PRN (21:04)
[2023-05-28] MEDS ORDERED: Glucagon,Human Recombinant 1 MG Vial IM PRN (21:04)
[2023-05-28] MEDS: Budesonide 0.5 MG/2 ML Neb Susp NEB SCH (21:17)
[2023-05-28] MEDS: Arformoterol 15 MCG/2 ML Neb Soln INH SCH (21:18)
[2023-05-28] MEDS: traZODone 50 MG Tab PO SCH (21:18)
[2023-05-28] MEDS: Magnesium Oxide 500 MG Tab PO SCH (21:18)
[2023-05-28] MEDS: Apixaban 5 MG Tab PO SCH (21:18)
[2023-05-28] MEDS: Cephalexin 250 MG Cap PO SCH (21:18)
[2023-05-28] MEDS: QUEtiapine 25 MG Tab PO SCH (21:18)
[2023-05-28] MEDS: Metoprolol Tartrate 25 MG Tab PO SCH (21:43)
[2023-05-29 07:46] LABS: HEMATOCRIT 41.2 % (40.0-52.0); HEMOGLOBIN 13.4 g/dL (13.0-17.0); MEAN CORPUSCULAR HEMOGLOBIN 30.2 pg (27.0-31.0); MEAN CORPUSCULAR HGB CONC 32.5 g/dL (32.0-36.0); MEAN CORPUSCULAR VOLUME 92.8 fL (82.0-92.0); MEAN PLATELET VOLUME 9.1 fL (7.4-10.4); PLATELET COUNT,PLT 200 10^3/uL (150-400); RED BLOOD CELL COUNT 4.44 10^6/uL (4.50-6.00); RED CELL DISTRIBUTION WIDTH 13.2 % (11.5-14.5); WHITE BLOOD CELL COUNT,WBC 4.25 10^3/uL (5.00-10.00)
[2023-05-29] MEDS: Levothyroxine 25 MCG Tab PO SCH (07:48)
[2023-05-29] MEDS: Levothyroxine 112 MCG Tab PO SCH (07:48)
[2023-05-29] MEDS: Insulin Lispro 100 Unit/ML 3 ML KwikPen SUBCUT SCH ×3 (07:52→17:59)
[2023-05-29 08:02] LABS: ANION GAP 14.1 mmol/L (5-15); CALCIUM 8.9 mg/dL (8.7-10.3); CARBON DIOXIDE,CO2 30.6 mmol/L (21.0-32.0); CREATININE 1.14 mg/dL (0.51-1.17); EST CRCL DRUG DOSING (CG) 55.14 mL/min; MAGNESIUM 1.5 mg/dL (1.8-2.4); POTASSIUM,K 4.7 mmol/L (3.5-5.1)
[2023-05-29] MEDS: QUEtiapine 25 MG Tab PO SCH ×2 (08:27→20:30)
[2023-05-29] MEDS: Magnesium Oxide 500 MG Tab PO SCH ×2 (08:27→20:30)
[2023-05-29] MEDS: Apixaban 5 MG Tab PO SCH ×2 (08:27→20:30)
[2023-05-29] MEDS: Escitalopram 10 MG Tab PO SCH (08:27)
[2023-05-29] MEDS: Metoprolol Tartrate 25 MG Tab PO SCH ×2 (08:28→20:47)
[2023-05-29] MEDS: Budesonide 0.5 MG/2 ML Neb Susp NEB SCH ×2 (08:31→20:30)
[2023-05-29] MEDS: Arformoterol 15 MCG/2 ML Neb Soln INH SCH ×2 (08:45→20:30)
[2023-05-29] MEDS: Tiotropium Bromide 4 GM Inhalation Spray (2.5mcg/1 dose; 10 doses) INH SCH (09:10)
[2023-05-29] MEDS: BIOFREEZE TOP SCH ×2 (09:13→20:34)
[2023-05-29] MEDS: traZODone 50 MG Tab PO SCH (20:30)
[2023-05-29] MEDS: Cephalexin 250 MG Cap PO SCH (20:30)
[2023-05-29] MEDS: LIFITEGRAST 5% EYEBOTH SCH (20:33)
[2023-05-29] MEDS: Insulin Glargine,Hum.Rec.Anlog 100 UNIT/ML 3 ML Pen SUBCUT SCH (20:34)
[2023-05-29] MEDS ORDERED: Insulin Glargine,Hum.Rec.Anlog 100 UNIT/ML 3 ML Pen SUBCUT SCH (21:00)
[2023-05-30] MEDS: Budesonide 0.5 MG/2 ML Neb Susp NEB SCH ×2 (07:43→20:05)
[2023-05-30] MEDS: Arformoterol 15 MCG/2 ML Neb Soln INH SCH ×2 (07:43→20:05)
[2023-05-30] MEDS: Levothyroxine 112 MCG Tab PO SCH (07:43)
[2023-05-30] MEDS: Levothyroxine 25 MCG Tab PO SCH (07:44)
[2023-05-30] MEDS: Tiotropium Bromide 4 GM Inhalation Spray (2.5mcg/1 dose; 10 doses) INH SCH (08:11)
[2023-05-30] MEDS: LIFITEGRAST 5% EYEBOTH SCH ×2 (08:11→20:04)
[2023-05-30] MEDS: Insulin Lispro 100 Unit/ML 3 ML KwikPen SUBCUT SCH ×3 (08:11→18:10)
[2023-05-30] MEDS: Magnesium Oxide 500 MG Tab PO SCH ×2 (08:12→20:05)
[2023-05-30] MEDS: QUEtiapine 25 MG Tab PO SCH ×2 (08:12→20:05)
[2023-05-30] MEDS: Escitalopram 10 MG Tab PO SCH (08:12)
[2023-05-30] MEDS: Metoprolol Tartrate 25 MG Tab PO SCH ×2 (08:13→20:05)
[2023-05-30] MEDS: Apixaban 5 MG Tab PO SCH ×2 (08:14→20:05)
[2023-05-30] MEDS ORDERED: Ketorolac 30 MG/ML SDV IVPUSH ONE (18:15)
[2023-05-30] MEDS: BIOFREEZE TOP SCH (20:03)
[2023-05-30] MEDS: Insulin Glargine,Hum.Rec.Anlog 100 UNIT/ML 3 ML Pen SUBCUT SCH (20:04)
[2023-05-30] MEDS: traZODone 50 MG Tab PO SCH (20:05)
[2023-05-30] MEDS: Cephalexin 250 MG Cap PO SCH (20:05)
[2023-05-30] MEDS ORDERED: Insulin Glargine,Hum.Rec.Anlog 100 UNIT/ML 3 ML Pen SUBCUT SCH (21:00)
[2023-05-31] MEDS: Levothyroxine 112 MCG Tab PO SCH (07:32)
[2023-05-31] MEDS: Budesonide 0.5 MG/2 ML Neb Susp NEB SCH (07:32)
[2023-05-31] MEDS: Arformoterol 15 MCG/2 ML Neb Soln INH SCH (07:32)
[2023-05-31] MEDS: Levothyroxine 25 MCG Tab PO SCH (07:32)
[2023-05-31] MEDS: Tiotropium Bromide 4 GM Inhalation Spray (2.5mcg/1 dose; 10 doses) INH SCH (08:06)
[2023-05-31] MEDS: Insulin Lispro 100 Unit/ML 3 ML KwikPen SUBCUT SCH ×2 (08:06→11:58)
[2023-05-31] MEDS: LIFITEGRAST 5% EYEBOTH SCH (08:06)
[2023-05-31] MEDS: Escitalopram 10 MG Tab PO SCH (08:07)
[2023-05-31] MEDS: Metoprolol Tartrate 25 MG Tab PO SCH (08:07)
[2023-05-31 08:08] VITALS: PULSE 61
[2023-05-31] MEDS: QUEtiapine 25 MG Tab PO SCH (08:08)
[2023-05-31] MEDS: Apixaban 5 MG Tab PO SCH (08:08)
[2023-05-31] MEDS: Magnesium Oxide 500 MG Tab PO SCH (08:08)
[2023-05-31 11:35] VITALS: BP 157/78
== END 2023-05-31 12:30 | DRG 948 ==
LOC: KA.ED 13:34 → KA.MS 15:46
PROVIDERS: ADMIT Internal Medicine; ATTEND Internal Medicine
DX: R53.1 Weakness (principal); R06.02 Shortness of breath; E11.9 Type 2 diabetes mellitus without complications; T50.995A Adverse effect of other drugs, medicaments and biological substances, initial encounter; I25.10 Atherosclerotic heart disease of native coronary artery without angina pectoris; E78.00 Pure hypercholesterolemia, unspecified; E03.9 Hypothyroidism, unspecified; I50.9 Heart failure, unspecified; I11.0 Hypertensive heart disease with heart failure; J44.9 Chronic obstructive pulmonary disease, unspecified; G47.30 Sleep apnea, unspecified; Z99.81 Dependence on supplemental oxygen; K59.09 Other constipation; K21.9 Gastro-esophageal reflux disease without esophagitis; F41.9 Anxiety disorder, unspecified; F32.A Depression, unspecified; E66.9 Obesity, unspecified; E89.0 Postprocedural hypothyroidism; E83.42 Hypomagnesemia; E11.43 Type 2 diabetes mellitus with diabetic autonomic (poly)neuropathy; K31.84 Gastroparesis; Z66 Do not resuscitate; F03.90 Unspecified dementia, unspecified severity, without behavioral disturbance, psychotic disturbance, mood disturbance, and anxiety; Z68.29 Body mass index [BMI] 29.0-29.9, adult; Z88.0 Allergy status to penicillin; Z79.899 Other long term (current) drug therapy; Z79.4 Long term (current) use of insulin; Z79.01 Long term (current) use of anticoagulants; Z95.1 Presence of aortocoronary bypass graft; Z86.711 Personal history of pulmonary embolism; Z87.442 Personal history of urinary calculi; Z87.440 Personal history of urinary (tract) infections; Z87.891 Personal history of nicotine dependence; Z98.890 Other specified postprocedural states; Z90.89 Acquired absence of other organs
CPT/HCPCS: 36415; 51701; 71045; 80048; 80053; 81001; 82550; 82947; 83690; 83735; 83880; 84484; 85025; 85027; 87040; 87086; 87088; 93005; 93010; 97129-GO; 97130-GO; 97162-GP; 99223; 99285; A9270-GY; J1815-GY; J1885; J3490